=== PATIENT | female | born 1955 | race Caucasian/White ===

== ENCOUNTER 2020-01-05 09:18 | Outpatient (CLI) | payer MEDICARE, MEDICAID, SELFPAY ==
--- NOTE | 2020-01-05 09:33 | MM_ITS ---
WS: [id number] BILATERAL DIGITAL SCREENING MAMMOGRAPHY WITH CAD CLINICAL INFORMATION: SCREENING HISTORY: Screening mammogram. No current complaints. COMPARISON: None. TECHNIQUE: Bilateral CC and MLO views. FINDINGS: The breasts are composed of heterogeneous fibroglandular density tissue, which can limit the detectio n of small underlying mass lesions. No suspicious mass, asymmetry, calcifications, or architectural d istortion. No evidence of malignancy. MM/[place] [id number] IMPRESSION: BI-RADS: 1-Negative FOLLOW UP: 1 Year Follow-up Recommend return to annual screening mammography.
== END 2020-01-05 09:19 | disposition home or self-care (01) ==
LOC: RADSHAW 09:28
PROVIDERS: Family Provider Family Medicine; PCP Family Medicine; Visit Provider Family Medicine
DX: Z12.31 Encounter for screening mammogram for malignant neoplasm of breast (principal)
CPT/HCPCS: 77067

== ENCOUNTER 2020-01-05 11:19 | Outpatient (CLI) | payer MEDICARE, MEDICAID, SELFPAY ==
--- NOTE | 2020-01-05 11:26 | US_ITS ---
WS: [id number] RENAL ULTRASOUND REASON FOR EXAM: CKD STAGE 3 TECHNIQUE: Grayscale and Doppler ultrasound examination of the kidneys. FINDINGS: Right kidney: Right kidney measures 9.6 cm x 2.9 cm x 3.4 cm. Cortex measured 0.79 cm Left kidney: Left kidney measures 9.1 cm x 5.1 cm x 5.1 cm. No stones or hydronephrosis. Contracted bladder is noted the patient had voided prior to the exam. US/US renal BI* [id number] IMPRESSION: Decreased cortex size right kidney Left kidney normal.
== END 2020-01-05 11:20 | disposition home or self-care (01) ==
LOC: RAD 11:27 → US 11:27
PROVIDERS: Family Provider Family Medicine; PCP Family Medicine; Visit Provider Internal Medicine Nephrology
DX: N18.3 Chronic kidney disease, stage 3 (moderate) (principal); N32.89 Other specified disorders of bladder
CPT/HCPCS: 76770

== ENCOUNTER → 2020-01-11 14:56 | Outpatient (BNVA) | payer MEDICARE, MEDICAID, SELFPAY | PROVIDERS: Family Provider Family Medicine; PCP Family Medicine; Visit Provider Nurse Practitioner Family | DX: R30.0 Dysuria (principal); J01.40 Acute pansinusitis, unspecified; B37.3 Candidiasis of vulva and vagina; J01.41 Acute recurrent pansinusitis; B37.2 Candidiasis of skin and nail | CPT/HCPCS: 81003 ==

== ENCOUNTER → 2020-03-23 12:11 | Outpatient (BNVA) | payer MEDICARE, MEDICAID, SELFPAY | PROVIDERS: Family Provider Family Medicine; PCP Family Medicine; Visit Provider Internal Medicine Nephrology | DX: N18.3 Chronic kidney disease, stage 3 (moderate) (principal) | CPT/HCPCS: 82044 ==

== ENCOUNTER → 2020-07-16 16:43 | Outpatient (BNVA) | payer MEDICARE, MEDICAID, SELFPAY | PROVIDERS: Family Provider Family Medicine; PCP Family Medicine; Visit Provider Family Medicine | DX: N18.3 Chronic kidney disease, stage 3 (moderate) (principal); E03.9 Hypothyroidism, unspecified; E53.9 Vitamin B deficiency, unspecified | CPT/HCPCS: 80053; 80061; 82607; 84100; 84443; 85025 ==

== ENCOUNTER → 2020-09-25 09:01 | Outpatient (BNVA) | payer MEDICARE, MEDICAID, SELFPAY | PROVIDERS: Family Provider Family Medicine; PCP Family Medicine; Visit Provider Family Medicine | DX: S22.20XA Unspecified fracture of sternum, initial encounter for closed fracture (principal) | CPT/HCPCS: 71120 ==

== ENCOUNTER → 2020-11-22 15:12 | Outpatient (BNVA) | payer MEDICARE, MEDICAID, SELFPAY | PROVIDERS: Family Provider Family Medicine; PCP Family Medicine; Visit Provider Family Medicine | DX: R30.0 Dysuria (principal) | CPT/HCPCS: 81003; 87086 ==

== ENCOUNTER → 2021-04-02 11:28 | Outpatient (BNVA) | payer MEDICARE, MEDICAID, SELFPAY | PROVIDERS: Family Provider Family Medicine; PCP Family Medicine; Visit Provider Family Medicine | DX: E03.9 Hypothyroidism, unspecified (principal); E53.8 Deficiency of other specified B group vitamins; N18.9 Chronic kidney disease, unspecified; R30.0 Dysuria | CPT/HCPCS: 80053; 80061; 80069; 81000; 82043; 82310; 82607; 83970; 84443; 85025 ==

== ENCOUNTER → 2021-05-22 15:47 | Outpatient (BNVA) | payer MEDICARE, MEDICAID, SELFPAY | PROVIDERS: Family Provider Family Medicine; PCP Family Medicine; Visit Provider Family Medicine | DX: R30.0 Dysuria (principal) | CPT/HCPCS: 81003 ==

== ENCOUNTER → 2021-07-17 11:00 | Outpatient (BNVA) | payer MEDICARE, MEDICAID, SELFPAY | PROVIDERS: Family Provider Family Medicine; PCP Family Medicine; Visit Provider Family Medicine | DX: R30.0 Dysuria (principal) | CPT/HCPCS: 81003 ==

== ENCOUNTER → 2021-12-16 15:06 | Outpatient (BNVA) | payer MEDICARE, MEDICAID, SELFPAY | PROVIDERS: Family Provider Family Medicine; PCP Family Medicine; Visit Provider Nurse Practitioner Family | DX: R30.0 Dysuria (principal); J06.9 Acute upper respiratory infection, unspecified | CPT/HCPCS: 81000 ==

== ENCOUNTER → 2021-12-23 11:53 | Outpatient (BNVA) | payer MEDICARE, MEDICAID, SELFPAY | PROVIDERS: Family Provider Family Medicine; PCP Family Medicine; Visit Provider Family Medicine | DX: K21.9 Gastro-esophageal reflux disease without esophagitis (principal); E53.8 Deficiency of other specified B group vitamins; E03.9 Hypothyroidism, unspecified; I95.9 Hypotension, unspecified | CPT/HCPCS: 80053; 80061; 82607; 83036; 84443; 85025 ==

== ENCOUNTER 2022-01-11 00:47 | Inpatient (IN) | payer MEDICARE, MEDICAID, SELFPAY ==
[2022-01-11] VITALS (13 sets, daily range): BP systolic 92–139; BP diastolic 55–102; PULSE 71–92; RESP 16–20; TEMP 36.7–37; O2SAT 90–99; BMI 27.3; BMI 29.5
--- NOTE | 2022-01-11 01:18 | XRR_ITS ---
PROCEDURE INFORMATION: Exam: XR Chest Exam date and time: 01/11/2022 1:18 AM Age: 66 years old Clinical indication: Shortness of breath; Patient HX: C/O worsening SOB. States history of sternal fracture a few years ago. Best positioning due to scoliosis. TECHNIQUE: Imaging protocol: XR of the chest. Views: 1 view. COMPARISON: CR XR sternum min 2V [id number] 09/25/2020 9:16 AM FINDINGS: Lungs: Marked bibasilar airspace opacities (atelectasis and/or consolidation). Moderate pulmonary edema. Pleural spaces: No visible pneumothorax. Small bilateral pleural effusions. Heart/Mediastinum: Heart size within normal limits. Bones/joints: No emergent findings identified. XR/XR chest 1V portable [id number] IMPRESSION: 1. Marked bibasilar airspace opacities (atelectasis and/or consolidation). 2. Moderate pulmonary edema. 3. Small bilateral pleural effusions.
--- NOTE | 2022-01-11 01:20 | ECG_ITS ---
[facility] Test Date: 2022-01-11 Pat Name: Nereida Samuels Department: Room: Gender: Female Coin Box Inspector: : 1955 Requested By: Martin Byrd Order Number: [id number] Shawn MD: Tyron Cortes M.D. Measurements Intervals [place] Rate: 90 P: 57 NC: 199 QRS: 60 QRSD: 82 T: 54 QT: 372 QTc: 456 Interpretive Statements SINUS RHYTHM NONSPECIFIC ST & T-WAVE ABNORMALITY No previous ECG available for comparison Electronically Signed On 01-12-2022 15:46:35 CDT by Tyron Cortes M.D. [id number]
--- NOTE | 2022-01-11 01:34 | W.ED.SOB ---
HPI - SOB/Dyspnea General: Chief Complaint: Shortness of Breath/Dyspnea Stated Complaint: COUGH/LOW 02/WEAKNESS Time Seen by Provider: 01/11/22 00:56 Source: patient and family History of Present Illness: HPI Narrative: 66-year-old female with a history of asthma. She presents with 1 week of progressive shortness of breath, cough, and cough related chest discomfort with generalized malaise. She does not use oxygen at home. Family called 911 after she slumped over in the chair at home. She was arousable, but had significant lethargy, and was having trouble breathing. She presents on oxygen, stating that this is the first time she has been able to breathe well in a week. She denies fever. She denies diarrhea. She relates her symptoms to environmental allergies that have made her not be able to breathe. MD elicited complaint: shortness of breath and cough Pertinent past history: asthma Onset (ago): day(s) Timing: progressively worsening Severity: moderate Exacerbating factors: exertion, movement and coughing Relieving factors: oxygen Known history of: asthma Associated symptoms: Reports chest congestion, chest pain (Related to cough), cough, orthopnea and syncope (Possibly at home); Deny abdominal pain, dizziness, fever(s), nausea, rash or vomiting Review of Systems Const: Denies: fever(s) Eyes: Denies: change in vision ENMT: Denies: throat pain Card: Reports: chest pain (Related to cough), syncope (Possibly at home) and orthopnea Resp: Reports: chest congestion GI: Denies: abdominal pain, nausea or vomiting Neuro: Denies: dizziness PFSH ED PFSH: Medical History Anxiety and depression Environmental and seasonal allergies Hypothyroidism Migraines Vitamin B12 deficiency Surgical History History of back surgery History of surgery on wrist Hx of appendectomy Hx of hysterectomy Hx of knee surgery Hx of shoulder surgery Family History Father Diabetes Hypertension Sister Diabetes Hypertension Other Lung disease Denies family history of Clotting disorder Suicide Stroke Social History Smoking and tobacco status: never smoked Second hand smoke exposure: No Smoking risk assessment/counseling performed?: No Alcohol intake: never Desire information about alcohol rehabilitation?: No Counseling given: No Desire information about substance/drug rehabilitation?: No Counseling given: No Adopted: No Caregiver/support person: No Lives independently: Yes Household members: none Housing: House Marital status: / Number of children: 2 Number of grandchildren: 3 Highest education level completed: Master's Degree service: No Current occupational status: retired Pets and animals: Yes History of recent travel: No Current gender identity: Female Physical Exam Const: GENERAL APPEARANCE: cooperative and frail appearing HENMT: COMMON NORMALS: normocephalic, atraumatic and Normal external nose present HEAD & SCALP: normocephalic and atraumatic NOSE: Normal external nose present Eye: COMMON NORMALS: Equal, round and reactive pupils present and EOMs intact bilaterally PUPIL: Yes Equal, round and reactive pupils present Chest: COMMONS NORMALS: normal inspection of the chest Resp: COMMON NORMALS: normal respiratory effort, No use of accessory muscles and clear to auscultation bilaterally AUSCULTATION: clear to auscultation bilaterally Cardio: COMMON NORMALS: regular rate and regular rhythm RATE: regular rate RHYTHM: regular rhythm GI: COMMON NORMALS: Normal to inspection, nondistended, normoactive bowel sounds present and Soft to palpation PALPATION: Yes Soft to palpation Extremity: COMMON NORMALS: no pedal edema Neuro: ALYSHA COMA SCALE: document GCS findings [place] coma scale eye opening: Spontaneous [place] coma scale verbal response: Orientated [place] coma scale motor response: Obey commands [place] coma scale total score: 15 Course Consultations: Consultation #1: [email or web address] Time: 03:15 Vital Signs: Vital signs: Vital Signs Temperature 98.4 F 01/11/22 00:52 Pulse Rate 76 01/11/22 02:00 Respiratory Rate 20 H 01/11/22 02:00 Blood Pressure 136/102 01/11/22 00:52 Pulse Oximetry 93 01/11/22 02:00 MDM - SOB/Dyspnea Medical Decision Making 66-year-old lady evidently with a history of asthma. She presents short of breath. She is oxygen dependent at this point. On 2 L her PO2 is 70 on blood gas. She is not acidotic. Chest x-ray shows pulmonary edema with bilateral effusions. Her white count is 6. Her hemoglobin is down to 9.1 from 11 in December. Her creatinine is 1.2. She is given Solu-Medrol, and DuoNeb treatment initially, but with reviewing her chest x-ray is also given Lasix. She is mildly hypertensive. We will add some nitroglycerin paste. As she is oxygen dependent at this point, she will be admitted. COVID-19 PCR is pending. Her second troponin is pending as well. Lab Data : 01/11/22 01:40 01/11/22 01:40 Labs/Radiology: Radiology Impressions Chest X-Ray 01/11/22 01:18 IMPRESSION: 1. Marked bibasilar airspace opacities (atelectasis and/or consolidation). 2. Moderate pulmonary edema. 3. Small bilateral pleural effusions. Laboratory Results WBC 6.0 10^3/uL (4.0-10.0) 01/11/22 01:40 RBC 3.63 10^6/uL (4.1-5.3) L 01/11/22 01:40 Hgb 9.1 g/dL (11.5-15.3) L 01/11/22 01:40 Hct 30.5 % (37.0-47.0) L 01/11/22 01:40 MCV 84.0 fl (81-99) 01/11/22 01:40 MCH 25.1 pg (28.0-34.0) L 01/11/22 01:40 MCHC 29.8 g/dL (30.0-36.0) L 01/11/22 01:40 RDW 16.2 % (12.1-15.1) H 01/11/22 01:40 Plt Count 398 10^3/cmm (130-400) 01/11/22 01:40 MPV 9.8 fL (7.4-10.4) 01/11/22 01:40 Neut % (Auto) 57.9 % 01/11/22 01:40 Lymph % (Auto) 25.3 % 01/11/22 01:40 [place] % (Auto) 10.2 % 01/11/22 01:40 Eos % (Auto) 5.4 % 01/11/22 01:40 Baso % (Auto) 1.0 % 01/11/22 01:40 Neut # (Auto) 3.46 10^3/uL (1.8-7.7) 01/11/22 01:40 Lymph # (Auto) 1.5 10^3/uL (0.8-4.8) 01/11/22 01:40 [place] # (Auto) 0.6 10^3/uL (0.2-0.9) 01/11/22 01:40 Eos # (Auto) 0.3 10^3/uL (0.0-0.8) 01/11/22 01:40 Baso # (Auto) 0.1 10^3/uL (0.0-0.1) 01/11/22 01:40 Nucleated RBC % (auto) 0 % 01/11/22 01:40 Nucleated RBCs # 0.0 /100WBC 01/11/22 01:40 D-Dimer 0.86 ug/mIFEU (0-0.59) H 01/11/22 01:40 Specimen Type Arterial 01/11/22 01:47 Sample Site Radial, left 01/11/22 01:47 ABG pH 7.44 (7.35-7.45) 01/11/22 01:47 ABG pCO2 34.5 mmHg (35-45) L 01/11/22 01:47 ABG pO2 70.5 mmHg (80.0-100.0) L 01/11/22 01:47 ABG HCO3 23.2 mmol/L (22-26) 01/11/22 01:47 ABG Base Excess -0.8 mmol/L (-2.0-2.0) 01/11/22 01:47 Manjinder Test Pos 01/11/22 01:47 Hematocrit 28.1 % (37-47) L 01/11/22 01:47 Hgb O2 Saturation 91.5 % (95-100) L 01/11/22 01:47 Carboxyhemoglobin 0.9 %THgb (0.4-20.1) 01/11/22 01:47 Methemoglobin 0.9 % (0.4-1.5) 01/11/22 01:47 Total Hemoglobin 9.2 g/dL (12-16) L 01/11/22 01:47 O2 Delivery Device Nc 01/11/22 01:47 O2 Liters/Min 2.0 % 01/11/22 01:47 Hardwood Floor Finisher ID Buttr 01/11/22 01:47 Sodium 142 mmol/L (136-145) 01/11/22 01:40 Potassium 3.9 mmol/L (3.5-5.1) 01/11/22 01:40 Chloride 107 mmol/L (98-107) 01/11/22 01:40 Carbon Dioxide 23 mmol/L (22-29) 01/11/22 01:40 Anion Gap 15.9 (5-19) 01/11/22 01:40 BUN 21 mg/dL (8-23) 01/11/22 01:40 Creatinine 1.2 mg/dL (0.5-0.9) H 01/11/22 01:40 GFR Calculation 44.8 mL/min (90-130) L 01/11/22 01:40 Glucose 83 mg/dL (65-115) 01/11/22 01:40 Calculated Osmolality 296 mOsm/kg (285-295) H 01/11/22 01:40 Lactic Acid 0.7 mmol/L (0.5-2.2) 01/11/22 01:40 Calcium 8.3 mg/dL (8.5-10.5) L 01/11/22 01:40 Total Bilirubin 0.2 mg/dL (0.15-1.2) 01/11/22 01:40 AST 29 U/L (0-32) 01/11/22 01:40 ALT 22 U/L (0-33) 01/11/22 01:40 Alkaline Phosphatase 101 IU/L (35-105) 01/11/22 01:40 Troponin T Baseline 11 ng/L (0-10) H 01/11/22 01:45 NT-Pro-B Natriuret Pep 3466 pg/mL (0-125) H 01/11/22 01:40 Total Protein 6.4 g/dL (6.6-8.7) L 01/11/22 01:40 Albumin 4.2 g/dL (3.5-5.2) 01/11/22 01:40 Globulin 2.2 g/dL (1.3-4.6) 01/11/22 01:40 Discharge Plan Discharge Patient Disposition: Admitted As Inpatient Clinical Impression: Pulmonary edema Respiratory failure with hypoxia Qualifiers: Chronicity: acute Qualified Code(s): J96.01 - Acute respiratory failure with hypoxia Condition: Fair Coding Level of Care Code ED [place] for g Fwd Exam Comprehensive
[2022-01-11 01:54] LABS: Basophils # 0.1 10^3/uL (0.0-0.1); Eosinophils # 0.3 10^3/uL (0.0-0.8); Eosinophils % 5.4 %; Hematocrit 30.5 % (37.0-47.0); Hemoglobin 9.1 g/dL (11.5-15.3); Lymphocytes # 1.5 10^3/uL (0.8-4.8); Lymphocytes % 25.3 %; Mean Corpuscular HGB Conc 29.8 g/dL (30.0-36.0); Mean Corpuscular Hemoglobin 25.1 pg (28.0-34.0); Mean Platelet Volume 9.8 fL (7.4-10.4); Monocytes # 0.6 10^3/uL (0.2-0.9); Monocytes % 10.2 %; Neutrophils # 3.46 10^3/uL (1.8-7.7); Neutrophils % 57.9 %; Nucleated Red Blood Cells % 0 %; Platelet Count 398 10^3/cmm (130-400); Red Blood Count 3.63 10^6/uL (4.1-5.3); Red Cell Distribution Width 16.2 % (12.1-15.1)
[2022-01-11 01:59] LABS: ABG PCO2 34.5 mmHg (35-45); ABG PH Result 7.44 (7.35-7.45); Arterial Blood Gas Hematocrit 28.1 % (37-47); Base Excess ABG -0.8 mmol/L (-2.0-2.0); Blood Gas Allen Test Pos; Blood Gas Sample Site Radial, left; Blood Gas Sample Type Arterial; Carboxyhemoglobin 0.9 %THgb (0.4-20.1); HCO3 ABG 23.2 mmol/L (22-26); HGB O2 Sat 91.5 % (95-100); Methemoglobin 0.9 % (0.4-1.5); Oxygen Device NC; PO2 ABG 70.5 mmHg (80.0-100.0); Total Hemoglobin 9.2 g/dL (12-16)
[2022-01-11] MEDS: ipratropium-albuterol 3 mL Neb INHALATION ×3 (02:00→20:08)
[2022-01-11 02:10] LABS: D Dimer 0.86 ug/mIFEU (0-0.59)
[2022-01-11 02:15] LABS: Lactic Sepsis W/Reflex 0.7 mmol/L (0.5-2.2)
[2022-01-11 02:17] LABS: Troponin(5th) Baseline 11 ng/L (0-10)
[2022-01-11 02:24] LABS: Alanine Aminotransferase 22 U/L (0-33); Albumin Level 4.2 g/dL (3.5-5.2); Alkaline Phosphatase 101 IU/L (35-105); Anion Gap 15.9 (5-19); Aspartate Amino Transferase 29 U/L (0-32); Blood Urea Nitrogen 21 mg/dL (8-23); Calcium 8.3 mg/dL (8.5-10.5); Carbon Dioxide 23 mmol/L (22-29); Chloride 107 mmol/L (98-107); Globulin 2.2 g/dL (1.3-4.6); Glomerular Filtration Rate 44.8 mL/min (90-130); Glucose 83 mg/dL (65-115); NT Pro B Type Natriuretic Pept 3466 pg/mL (0-125); Osmolality Calculated 296 mOsm/kg (285-295); Potassium 3.9 mmol/L (3.5-5.1); Sodium 142 mmol/L (136-145); Total Bilirubin 0.2 mg/dL (0.15-1.2); Total Protein 6.4 g/dL (6.6-8.7)
[2022-01-11] MEDS: FUROsemide 10 mg/mL SDV 10mL 60 MG IVP (03:35)
[2022-01-11 04:18] LABS: Troponin 5 2HR 11.19 ng/L (0-10)
[2022-01-11 04:27] LABS: Troponin 5 2HR Delta 0.19 ABS# (0-10)
[2022-01-11 04:56] LABS: Adenovirus Not Detected (NOT DETECT); Chlamydia Pneumoniae Not Detected (NOT DETECT); Coronavirus 229E,HKU1,NL63,OC4 Not Detected (NOT DETECT); Human Metapneumovirus Not Detected (NOT DETECT); Human Rhinovirus/Enterovirus Not Detected (NOT DETECT); Influenza A Not Detected (NOT DETECT); Influenza A H1 Not Detected (NOT DETECT); Influenza A H1-2009 Not Detected (NOT DETECT); Influenza A H3 Not Detected (NOT DETECT); Influenza B Not Detected (NOT DETECT); Mycoplasma Pneumoniae Not Detected (NOT DETECT); Parainfluenza Virus Type 1 Not Detected (NOT DETECT); Parainfluenza Virus Type 2 Not Detected (NOT DETECT); Parainfluenza Virus Type 3 Not Detected (NOT DETECT); Parainfluenza Virus Type 4 Not Detected (NOT DETECT); Respiratory Syncytial Virus A Not Detected (NOT DETECT); Respiratory Syncytial Virus B Not Detected (NOT DETECT); SARS-COV-2 Not Detected (NOT DETECT)
--- NOTE | 2022-01-11 05:48 | USCV_ITS ---
Neerida Samuels Age: 66 Gender: F : 1955 Exam Date: 01/11/2022 08:07 Ordering Phys: Lisset Ayers MD Technologist: Celsa Burden Exam Location: [facility] – [place] Indication: New diagnosis of CHF BP: 92 / 55 HR: 85 Rhythm: Sinus Technical Quality: Adequate MEASUREMENTS (Male / Female) Normal Values 2D ECHO LV Diastolic Diameter PLAX 3.8 cm 4.2 - 5.9 / 3.9 - 5.3 cm LV Systolic Diameter PLAX 2.1 cm IVS Diastolic Thickness 0.8 cm 0.6 - 1.0 / 0.6 - 0.9 cm IVS Systolic Thickness 1.1 cm LVPW Diastolic Thickness 1.1 cm 0.6 - 1.0 / 0.6 - 0.9 cm LVPW Systolic Thickness 1.6 cm RV Chamber Size 2.8 cm LVOT Diameter 2.0 cm LV Ejection Fraction 2D Teich 76.4 % LV Ejection Fraction MOD 2C 75.2 % LV Ejection Fraction 2C AL 75.0 % LA Diameter 3.3 cm LA Width 3.7 cm LA Height 3.4 cm RA Width 3.1 cm RA Height 5.3 cm Aorta at Sinotubular Diameter 2.3 cm M-MODE Aortic Annulus Diameter 2.5 cm LA Ao Ratio MM 1.3 MV E Point Septal Separation 0.3 cm DOPPLER AV Peak Velocity 126.0 cm/s LVOT Peak Velocity 125.0 cm/s AV Area Cont Eq vti 3.3 cm squared AV Area Cont Eq pk 3.2 cm squared MV Area PHT 5.0 cm squared Mitral E to A Ratio 1.6 MV E' Velocity 47.0 cm/s Mitral E to MV E' Ratio 7.7 Mitral E to LV E' Lateral Ratio 7.7 Mitral E to LV E' Septal Ratio 7.7 TR Peak Velocity 373.3 cm/s TR Peak Gradient 55.7 mmHg TR Mean Velocity 271.0 cm/s TR Mean Gradient 31.6 mmHg TR Velocity Time Integral 121.9 cm TV Peak E Velocity 47.0 cm/s Right Atrial Pressure 3.0 mmHg Pulmonary Artery Systolic Pressu 58.7 mmHg PV Peak Velocity 94.0 cm/s FINDINGS Left Ventricle Normal left ventricular size. LV systolic function is normal with EF of 55-60%. No regional wall motion abnormalities. Diastolic function is normal Right Ventricle The right ventricle is normal in size and function. Right Atrium The right atrium is normal in size. Left Atrium The left atrium is normal in size. Mitral Valve Structurally normal mitral valve without significant stenosis or prolapse. There is mild mitral regurgitation. Aortic Valve Structurally normal aortic valve without significant sclerosis or stenosis. There is no aortic regurgitation. Tricuspid Valve Structurally normal tricuspid valve without significant stenosis. Mild tricuspid regurgitation. RVSP is 45-50mmHg. This is consistent with moderate pulmonary hypertension Pulmonic Valve Structurally normal pulmonic valve without significant stenosis. There is no pulmonic regurgitation. Pericardium Normal pericardium without effusion. Aorta Normal ascending aorta dimension. CONCLUSIONS LV systolic function is normal with EF of 55-60% Diatolic function is normal Mild mitral regurgitation Mild triuspid regurgitation. Moderate pulmonary hypertension No comparison studies are available Tyron Cortes MD (Electronically Signed) Final Date: 11 January 2022 11:46 S
--- NOTE | 2022-01-11 05:53 | P.HP_ITS ---
Providers/Chief Complaint Admitting Physician: Lisset Ayers MD Primary Care Provider: Soheila Devlin MD Chief Complaint: COUGH/LOW 02/WEAKNESS History of Present Illness Nereida Samuels is a 66 year old female with PMH asthama, anxiety, hypothryroidism, vit b12 deficiency p/w approximately one week of increasing shortness of breath, worse with exertion. Denies any chest pain. Today she was noted by family to be inreasingly weak and slumped over in a chair from fatigue. She has a new 02 requirement of 2lpm today. Denies fever, chills. CXR shows B/L opacities concerning for pneumonia vs pulmonary edema. She does not have known PMH of heart failure. She feels improved after being given lasix, steroids and nebulization in the ER. Troponin baseline today is at 11. COVID PCR is negative. Review of Systems General: Reports: 10 or more systems reviewed and unremarkable except in HPI and below Const: Denies: fever(s), chills or body aches Eyes: Denies: change in vision, blurry vision or photophobia ENMT: Reports: hoarseness; Denies: throat pain, enlarged tonsils, odynophagia or nasal congestion Card: Denies: chest pain, palpitations, irregular heart rhythm, edema, swe lling of feet/ankles, lightheadedness, pre-syncope, dyspnea on exertion or orthopnea Resp: Denies: dyspnea, productive cough, non-productive cough, wheezing, stridor, pain on inspiration, change in phlegm color, hemoptysis or chest congestion GI: Denies: abdominal pain, nausea, vomiting, hematemesis, coffee ground emesis, dysphagia, heartburn, diarrhea, constipation, GI cramping, change in stool character, hematochezia or melena : Denies: flank pain, difficulty voiding, dysuria, urinary frequency, urina ry urgency, urinary hesitancy or hematuria Musc: Denies: neck pain, back pain, extremity pain, joint swelling, joint warmth or deformity Neuro: Denies: headache(s), numbness in extremities, weakness in extremities, sensory changes, difficulty walking, frequent falls, dizziness, vertigo, behavioral changes, Slurred speech present or seizure-like activity Psych: Denies: anxiety, depression, suicidal ideation or homicidal ideation Endo: Denies: polyuria, polydipsia, tired all the time, cold intolerance or hot flashes Luca/Lymph: Denies: easy bruising or easy bleeding Medications/Allergies Home Medications Medication Instructions Recorded Confirmed Last Taken Type Lift chair #1 ea 04/27/20 01/03/22 Unknown Rx syringe with needle, safety 3 mL #20 each 04/27/20 01/03/22 Unknown Rx 25 gauge x 1 (BD SafetyGlide Syringe) cyanocobalamin (vitamin B-12) See Rx Instructions .ROUTE 03/29/21 01/03/22 Unknown Rx 1,000 mcg/mL injection solution .COMPLEX #2 ml azelastine 137 mcg (0.1 %) nasal See Rx Instructions .ROUTE 07/26/21 01/03/22 Unknown Rx spray aerosol .COMPLEX #30 ml albuterol sulfate 2.5 mg (3 mL) INHALATION QID PRN 08/20/21 01/03/22 Unknown Rx #75 ml budesonide-formoterol HFA 160 2 puff INHALATION BID #10.2 g 08/20/21 01/03/22 Un known Rx mcg-4.5 mcg/actuation aerosol inhaler (Symbicort) compressor, for nebulizer #1 ea 08/20/21 01/03/22 Unknown Rx dextromethorphan-guaifenesin ER 60 1 tab PO Q12H #60 tab 08/20/21 01/03/22 Unknown Rx mg-1,200 mg tab,extend release,12hr (Mucinex DM) fluticasone propionate 50 2 spray INTRANASAL DAILY #16 g 08/20/21 01/03/22 Unknown Rx mcg/actuation nasal spray,suspension (Flonase Allergy Relief) nebulizer accessories #1 ea 08/20/21 01/03/22 Unknown Rx ipratropium 0.5 mg-albuterol 3 mg See Rx Instructions .ROUTE 10/09/21 01/03/22 Unknown Rx (2.5 mg base)/3 mL nebulization .COMPLEX #180 ml soln albuterol sulfate 90 mcg/actuation See Rx Instructions .ROUTE 11/04/21 01/03/22 Unknown Rx aerosol inhaler .COMPLEX #18 g sucralfate 1 gram tablet See Rx Instructions .ROUTE 11/29/21 01/03/22 Unknown Rx .COMPLEX #30 tab tizanidine 4 mg tablet See Rx Instructions .ROUTE 11/29/21 01/03/22 Unknown Rx .COMPLEX #90 tab trazodone 150 mg tablet See Rx Instructions .ROUTE 11/29/21 01/03/22 Unknown Rx .COMPLEX #30 tab clonazepam 1 mg disintegrating 1 mg PO BID PRN #60 tab 12/16/21 01/03/22 Unknown Rx tablet duloxetine 60 mg capsule,delayed See Rx Instructions .ROUTE 12/16/21 01/03/22 Unknown Rx release .COMPLEX #60 cap fluconazole 40 mg/mL oral 100 mg (2.5 mL) PO DAILY #35 ml 12/17/21 01/03/22 Unknown Rx suspension (Diflucan) tramadol 50 mg tablet 50 mg PO TID PRN 30 Days #90 tab 12/17/21 01/03/22 Unknown Rx topiramate 50 mg tablet See Rx Instructions .ROUTE 12/19/21 01/03/22 Unknown Rx .COMPLEX #60 tab levothyroxine 100 mcg tablet See Rx Instructions .ROUTE 12/20/21 01/03/22 Unknown Rx .COMPLEX #30 tab nebivolol 5 mg tablet (Bystolic) 5 mg PO .qhs #30 tab 12/23/21 01/03/22 Unknown Rx promethazine 25 mg tablet 25 mg PO Q6H PRN #30 tab 12/23/21 01/03/22 Unknown Rx Allergies Allergy/AdvReac Type Severity Reaction Status Date / Time Penicillins Allergy ALGY-Swell Verified 12/23/21 10:23 Lip/Tongue/Throat red dye Allergy ALGY-Rash Verified 12/23/21 10:23 Sulfa (Sulfonamide Allergy upset Verified 12/23/21 10:23 Antibiotics) stomach Tetracyclines Allergy ADR-Dizzine Verified 12/23/21 10:23 ss PFSH Acute PFSH: Medical History (Updated 01/11/22 @ 06:05 by Lisset Ayers MD) Anxiety and depression Environmental and seasonal allergies Fibromyalgia Hypothyroidism Migraines Scoliosis Vitamin B12 deficiency Surgical History History of back surgery History of surgery on wrist Hx of appendectomy Hx of hysterectomy Hx of knee surgery Hx of shoulder surgery Family History Father Diabetes Hypertension Sister Diabetes Hypertension Other Lung disease Denies family history of Clotting disorder Suicide Stroke Social History Smoking and tobacco status: never smoked Second hand smoke exposure: No Smoking risk assessment/counseling performed?: No Alcohol intake: never Desire information about alcohol rehabilitation?: No Counseling given: No Desire information about substance/drug rehabilitation?: No Counseling given: No Adopted: No Caregiver/support person: No Lives independently: Yes Household members: none Housing: House Marital status: / Number of children: 2 Number of grandchildren: 3 Highest education level completed: Master's Degree service: No Current occupational status: retired Pets and animals: Yes History of recent travel: No Current gender identity: Female Vitals/I&O/Wt Last Vital Signs Temp 98.4 F 01/11/22 00:52 Pulse 76 01/11/22 02:00 Resp 20 H 01/11/22 02:00 BP 136/102 01/11/22 00:52 Pulse Ox 93 01/11/22 02:00 Weight last 48 hrs Weight 63.503 kg Physical Exam Narrative: GEN: Awake, alert and oriented, no acute distress CVS: S1S2 N RS: CTA B/L except crackles over RUL , few scattered wheezes Abd: Soft, nt/nd , bs+ CALL OUT CLERK: no focal neuro deficits Data : 01/11/22 01:40 01/11/22 01:40 Other Labs: Radiology Impressions Chest X-Ray 01/11/22 01:18 IMPRESSION: 1. Marked bibasilar airspace opacities (atelectasis and/or consolidation). 2. Moderate pulmonary edema. 3. Small bilateral pleural effusions. Laboratory Results WBC 6.0 10^3/uL (4.0-10.0) 01/11/22 01:40 RBC 3.63 10^6/uL (4.1-5.3) L 01/11/22 01:40 Hgb 9.1 g/dL (11.5-15.3) L 01/11/22 01:40 Hct 30.5 % (37.0-47.0) L 01/11/22 01:40 MCV 84.0 fl (81-99) 01/11/22 01:40 MCH 25.1 pg (28.0-34.0) L 01/11/22 01:40 MCHC 29.8 g/dL (30.0-36.0) L 01/11/22 01:40 RDW 16.2 % (12.1-15.1) H 01/11/22 01:40 Plt Count 398 10^3/cmm (130-400) 01/11/22 01:40 MPV 9.8 fL (7.4-10.4) 01/11/22 01:40 Neut % (Auto) 57.9 % 01/11/22 01:40 Lymph % (Auto) 25.3 % 01/11/22 01:40 [place] % (Auto) 10.2 % 01/11/22 01:40 Eos % (Auto) 5.4 % 01/11/22 01:40 Baso % (Auto) 1.0 % 01/11/22 01:40 Neut # (Auto) 3.46 10^3/uL (1.8-7.7) 01/11/22 01:40 Lymph # (Auto) 1.5 10^3/uL (0.8-4.8) 01/11/22 01:40 [place] # (Auto) 0.6 10^3/uL (0.2-0.9) 01/11/22 01:40 Eos # (Auto) 0.3 10^3/uL (0.0-0.8) 01/11/22 01:40 Baso # (Auto) 0.1 10^3/uL (0.0-0.1) 01/11/22 01:40 Nucleated RBC % (auto) 0 % 01/11/22 01:40 Nucleated RBCs # 0.0 /100WBC 01/11/22 01:40 D-Dimer 0.86 ug/mIFEU (0-0.59) H 01/11/22 01:40 Specimen Type Arterial 01/11/22 01:47 Sample Site Radial, left 01/11/22 01:47 ABG pH 7.44 (7.35-7.45) 01/11/22 01:47 ABG pCO2 34.5 mmHg (35-45) L 01/11/22 01:47 ABG pO2 70.5 mmHg (80.0-100.0) L 01/11/22 01:47 ABG HCO3 23.2 mmol/L (22-26) 01/11/22 01:47 ABG Base Excess -0.8 mmol/L (-2.0-2.0) 01/11/22 01:47 Manjinder Test Pos 01/11/22 01:47 Hematocrit 28.1 % (37-47) L 01/11/22 01:47 Hgb O2 Saturation 91.5 % (95-100) L 01/11/22 01:47 Carboxyhemoglobin 0.9 %THgb (0.4-20.1) 01/11/22 01:47 Methemoglobin 0.9 % (0.4-1.5) 01/11/22 01:47 Total Hemoglobin 9.2 g/dL (12-16) L 01/11/22 01:47 O2 Delivery Device Nc 01/11/22 01:47 O2 Liters/Min 2.0 % 01/11/22 01:47 Vacuum Furnace Operator ID Buttr 01/11/22 01:47 Sodium 142 mmol/L (136-145) 01/11/22 01:40 Potassium 3.9 mmol/L (3.5-5.1) 01/11/22 01:40 Chloride 107 mmol/L (98-107) 01/11/22 01:40 Carbon Dioxide 23 mmol/L (22-29) 01/11/22 01:40 Anion Gap 15.9 (5-19) 01/11/22 01:40 BUN 21 mg/dL (8-23) 01/11/22 01:40 Creatinine 1.2 mg/dL (0.5-0.9) H 01/11/22 01:40 GFR Calculation 44.8 mL/min (90-130) L 01/11/22 01:40 Glucose 83 mg/dL (65-115) 01/11/22 01:40 Calculated Osmolality 296 mOsm/kg (285-295) H 01/11/22 01:40 Lactic Acid 0.7 mmol/L (0.5-2.2) 01/11/22 01:40 Calcium 8.3 mg/dL (8.5-10.5) L 01/11/22 01:40 Total Bilirubin 0.2 mg/dL (0.15-1.2) 01/11/22 01:40 AST 29 U/L (0-32) 01/11/22 01:40 ALT 22 U/L (0-33) 01/11/22 01:40 Alkaline Phosphatase 101 IU/L (35-105) 01/11/22 01:40 Troponin T Baseline 11 ng/L (0-10) H 01/11/22 01:45 Troponin T 120 Minute 11.19 ng/L (0-10) H 01/11/22 03:48 Delta Troponin T 0.19 ABS# (0-10) 01/11/22 03:48 NT-Pro-B Natriuret Pep 3466 pg/mL (0-125) H 01/11/22 01:40 Total Protein 6.4 g/dL (6.6-8.7) L 01/11/22 01:40 Albumin 4.2 g/dL (3.5-5.2) 01/11/22 01:40 Globulin 2.2 g/dL (1.3-4.6) 01/11/22 01:40 Coronavirus 229E (PCR) Not detected (NOT DETECT) 01/11/22 01:40 SARS-CoV-2 (PCR) Not detected (NOT DETECT) 01/11/22 01:40 Micro: Microbiology 01/11/22 01:45 Blood Culture - Preliminary Blood SPECIMEN COLLECTED 01/11/22 01:40 Blood Culture - Preliminary Blood SPECIMEN COLLECTED ABG Interpretation 1: 01/11/22 01:47 ABG pH 7.44 ABG pCO2 34.5 L ABG pO2 70.5 L ABG HCO3 23.2 ABG Base Excess -0.8 A&P Assessment and plan (1) Pulmonary edema: CXR with B/L infiltrates concerning for pulmonary edema No known past h/o heart failure will check echo today She has received 60mg IVP lasix in ER, monitor urine output and kidney function , start 20mg IVP lasix daily Check procalcitonin, if negative can likely stop abx H/o Multiple asthma flares over the past year, continue methylpred 40mg IVP q12h and scheduled duoneb and budesonide inhalation. 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
[2022-01-11 06:21] LABS: Procalcitonin 0.09 ng/mL (0-0.5)
[2022-01-11] MEDS: levothyroxine 100 mcg Tablet PO (06:57)
--- NOTE | 2022-01-11 07:20 | ECG_ITS ---
[facility] Test Date: 2022-01-11 Pat Name: Nereida Samuels Department: Room: 259 Gender: Female [employer]: : 1955 Requested By: Martin Byrd Order Number: [id number] Shawn MD: Tyron Cortes M.D. Measurements Intervals [place] Rate: 78 P: 60 [place]: 201 QRS: 61 QRSD: 79 T: 30 QT: 415 QTc: 474 Interpretive Statements SINUS RHYTHM NONSPECIFIC T-WAVE ABNORMALITY Compared to ECG 01/11/2022 02:59:36 No significant changes Electronically Signed On 01-12-2022 15:55:08 CDT by Tyron Cortes M.D. [email or web address]
[2022-01-11 08:17] LABS: Troponin 5 6HR 11.02 ng/L (0-10)
[2022-01-11 08:26] LABS: Troponin 5 6HR Delta 0.02 ng/L (0-12)
[2022-01-11] MEDS: budesonide 0.5 mg/2 mL Neb INHALATION ×2 (09:49→20:08)
[2022-01-11] MEDS: enoxaparin 40 mg/0.4 mL Syringe SUBCUT (10:41)
[2022-01-11] MEDS: duloxetine 60 mg Capsule PO ×2 (10:42→20:44)
[2022-01-11] MEDS: TRAMadol 50 mg Tablet PO (10:42)
[2022-01-11] MEDS: FUROsemide 10 mg/mL SDV 2mL 20 MG IVP (10:42)
[2022-01-11] MEDS: CLONazepam 1 mg Tablet PO (10:43)
[2022-01-11] MEDS: pantoprazole DR 40 mg Tablet PO (10:43)
[2022-01-11] MEDS: levoFLOXacin 750 mg Tablet PO (10:43)
--- NOTE | 2022-01-11 11:29 | CTR_ITS ---
PROCEDURE INFORMATION: Exam: CT Chest Without Contrast; Diagnostic Exam date and time: 01/11/2022 11:29 AM Age: 66 years old Clinical indication: Shortness of breath; Additional info: Chf vs pna TECHNIQUE: Imaging protocol: Diagnostic computed tomography of the chest without contrast. Radiation optimization: All CT scans at this facility use at least one of these dose optimization techniques: automated exposure control; mA and/or kV adjustment per patient size (includes targeted exams where dose is matched to clinical indication); or iterative reconstruction. COMPARISON: CR (CHEST, ) 01/11/2022 1:22 AM RADIATION DOSE METRICS: Total DLP (mGy-cm): 316.15 FINDINGS: Lungs: Mild bibasilar compressive atelectasis and/or pneumonia. Pleural spaces: Mbiz-cu-emibnrbj bilateral pleural fluid collections. Heart: Moderate calcified coronary artery disease. Aorta: Unremarkable. No aortic aneurysm. Lymph nodes: Unremarkable. No enlarged lymph nodes. Gallbladder and bile ducts: Surgical clips in the gallbladder fossa consistent with cholecystectomy. Stomach: Previous gastroplasty. Bones/joints: Healed depressed sternal body fracture and manubrial fractures. Dextroscoliosis. Soft tissues: Unremarkable. CT/CT chest con [id number] IMPRESSION: 1. Cbjj-yh-zpnrnhji bilateral pleural fluid collections. 2. Mild bibasilar compressive atelectasis and/or pneumonia. 3. Moderate calcified coronary artery disease.
[2022-01-11] MEDS: trazodone 150 mg Tablet PO (20:44)
[2022-01-11 23:05] LABS: Add Urine Microscopic? NO; Charge for UA Resulting for Rev
[2022-01-11 23:09] LABS: Bilirubin Urine Neg (Negative); Blood Urine Neg (Negative); Glucose Urine UA Norm (Normal); Ketones Urine Negative (Negative); Leukocyte Esterase Urine Negative (Negative); Nitrate Urine Negative (Negative); Protein Urine Neg (Negative); Specific Gravity, Urine 1.015 (1.005-1.030); Urine Appearance Clear (CLEAR); Urine Color Yellow (Yellow); Urobilinogen Urine Norm (Negative); pH Urine 5 (5-7)
[2022-01-11 23:22] LABS: Potassium, Radom Urine 49 mmol/L; Urine Random Sodium 24 mmol/L
[2022-01-11 23:40] LABS: Urine Random Chloride 10 mmol/L
[2022-01-12] VITALS (12 sets, daily range): BP systolic 113–132; BP diastolic 68–72; PULSE 83–98; RESP 16–18; TEMP 36.6–36.9; O2SAT 85–98
[2022-01-12] MEDS: CLONazepam 1 mg Tablet PO (00:42)
[2022-01-12] MEDS: ipratropium-albuterol 3 mL Neb INHALATION ×3 (03:21→15:22)
[2022-01-12 05:03] LABS: Hematocrit 29.8 % (37.0-47.0); Hemoglobin 8.6 g/dL (11.5-15.3); Lymphocytes # 0.3 10^3/uL (0.8-4.8); Lymphocytes % 6.5 %; Mean Corpuscular HGB Conc 28.9 g/dL (30.0-36.0); Mean Corpuscular Hemoglobin 25.2 pg (28.0-34.0); Mean Corpuscular Volume 87.4 fl (81-99); Mean Platelet Volume 10.1 fL (7.4-10.4); Monocytes # 0.3 10^3/uL (0.2-0.9); Monocytes % 5.1 %; Neutrophils # 4.62 10^3/uL (1.8-7.7); Nucleated Red Blood Cells % 0 %; Platelet Count 360 10^3/cmm (130-400); Red Blood Count 3.41 10^6/uL (4.1-5.3); Red Cell Distribution Width 16.2 % (12.1-15.1); White Blood Count 5.3 10^3/uL (4.0-10.0)
[2022-01-12 05:20] LABS: Alanine Aminotransferase 16 U/L (0-33); Albumin Level 3.7 g/dL (3.5-5.2); Alkaline Phosphatase 89 IU/L (35-105); Anion Gap 16.9 (5-19); Aspartate Amino Transferase 24 U/L (0-32); Blood Urea Nitrogen 27 mg/dL (8-23); Calcium 8.5 mg/dL (8.5-10.5); Carbon Dioxide 20 mmol/L (22-29); Chloride 100 mmol/L (98-107); Globulin 2.5 g/dL (1.3-4.6); Glomerular Filtration Rate 62.5 mL/min (90-130); Glucose 179 mg/dL (65-115); Osmolality Calculated 286 mOsm/kg (285-295); Potassium 3.9 mmol/L (3.5-5.1); Sodium 133 mmol/L (136-145); Total Bilirubin 0.2 mg/dL (0.15-1.2); Total Protein 6.2 g/dL (6.6-8.7)
[2022-01-12] MEDS: levothyroxine 100 mcg Tablet PO (06:16)
[2022-01-12] MEDS: budesonide 0.5 mg/2 mL Neb INHALATION (08:09)
--- NOTE | 2022-01-12 12:13 | PM.DCS ---
Discharge Providers Date of Admission: 01/11/22 03:19 Date of Discharge: January 12, 2022 Attending Provider at Admission: Lisset Ayers MD Attending Provider at Discharge: Chan Longoria MD Primary Care Provider: Soheila Devlin MD Diagnoses at Discharge Discharge Diagnosis (1) Pulmonary edema: Status: Acute (2) Dyspnea: Status: Acute (3) Respiratory failure with hypoxia: Status: Acute Qualifiers: Chronicity: acute Qualified Code(s): J96.01 - Acute respiratory failure with hypoxia (4) Moderate pulmonary hypertension: Status: Acute (5) COPD (chronic obstructive pulmonary disease): Status: Acute Reason for Visit Reason for Visit: COUGH/LOW 02/WEAKNESS Brief History: History as per HPI: Nereida Samuels is a 66 year old female with PMH asthama, anxiety, hypothryroidism, vit b12 deficiency p/w approximately one week of increasing shortness of breath, worse with exertion. Denies any chest pain. Today she was noted by family to be inreasingly weak and slumped over in a chair from fatigue. She has a new 02 requirement of 2lpm today. Denies fever, chills. CXR shows B/L opacities concerning for pneumonia vs pulmonary edema. She does not have known PMH of heart failure. She feels improved after being given lasix, steroids and nebulization in the ER. Troponin baseline today is at 11. COVID PCR is negative. Hospital Course Hospital Course She was admitted to the hospital for further evaluation and management of hypoxia. It is believed hypoxia secondary to COPD exacerbation along with mild congestive heart failure. She was started on diuretic therapy and inhalation treatment. On admission she was in mild SARAH which resolved with diuresis. Echocardiogram was done which showed moderate pulmonary hypertension. CT chest was done which ruled out any consolidation or pneumonia. Patient has been feeling better and since she is back to her baseline. She is been discharged in medically stable condition with steroid taper for next 1 week, Lasix 20 mg oral daily with advised to follow-up with a primary care provider within next 1 week for repeat BMP, have pulmonary function test as an outpatient for further evaluation of COPD. Physical Exam Const: GENERAL APPEARANCE: cooperative and frail appearing HENMT: COMMON NORMALS: normocephalic, atraumatic and Normal external nose present HEAD & SCALP: normocephalic and atraumatic NOSE: Normal external nose present Eye: COMMON NORMALS: Equal, round and reactive pupils present and EOMs intact bilaterally PUPIL: Yes Equal, round and reactive pupils present Chest: COMMONS NORMALS: normal inspection of the chest Resp: COMMON NORMALS: normal respiratory effort, No use of accessory muscles and clear to auscultation bilaterally AUSCULTATION: clear to auscultation bilaterally Cardio: COMMON NORMALS: regular rate and regular rhythm RATE: regular rate RHYTHM: regular rhythm GI: COMMON NORMALS: Normal to inspection, nondistended, normoactive bowel sounds present and Soft to palpation PALPATION: Yes Soft to palpation Extremity: COMMON NORMALS: no pedal edema Neuro: JAYMIE COMA SCALE: document GCS findings [place] coma scale eye opening: Spontaneous [place] coma scale verbal response: Orientated [place] coma scale motor response: Obey commands [place] coma scale total score: 15 Discharge Data Studies Completed and Pending Completed Studies During Hospitalization Category Date Time Status CT chest wo con [id number] Routine Cat Scan 01/11/22 11:29 Completed XR chest 1V portable [id number] Urgent Exams 01/11/22 01:18 Completed CV. echo complete* [id number] Routine Ultrasound 01/11/22 05:48 Completed Pending at discharge Category Date Time Status Blood Culture Stat Lab 01/11/22 01:45 Results Sputum Culture and Gram Stain Routine Lab 01/11/22 06:02 Uncollected Radiology Impressions Chest X-Ray 01/11/22 01:18 IMPRESSION: 1. Marked bibasilar airspace opacities (atelectasis and/or consolidation). 2. Moderate pulmonary edema. 3. Small bilateral pleural effusions. Chest CT 01/11/22 11:29 IMPRESSION: 1. [id number] bilateral pleural fluid collections. 2. Mild bibasilar compressive atelectasis and/or pneumonia. 3. Moderate calcified coronary artery disease. Laboratory Results WBC 5.3 10^3/uL (4.0-10.0) 01/12/22 04:50 RBC 3.41 10^6/uL (4.1-5.3) L 01/12/22 04:50 Hgb 8.6 g/dL (11.5-15.3) L 01/12/22 04:50 Hct 29.8 % (37.0-47.0) L 01/12/22 04:50 MCV 87.4 fl (81-99) 01/12/22 04:50 MCH 25.2 pg (28.0-34.0) L 01/12/22 04:50 MCHC 28.9 g/dL (30.0-36.0) L 01/12/22 04:50 RDW 16.2 % (12.1-15.1) H 01/12/22 04:50 Plt Count 360 10^3/cmm (130-400) 01/12/22 04:50 MPV 10.1 fL (7.4-10.4) 01/12/22 04:50 Neut % (Auto) 88.0 % 01/12/22 04:50 Lymph % (Auto) 6.5 % 01/12/22 04:50 [place] % (Auto) 5.1 % 01/12/22 04:50 Eos % (Auto) 0.0 % 01/12/22 04:50 Baso % (Auto) 0.0 % 01/12/22 04:50 Neut # (Auto) 4.62 10^3/uL (1.8-7.7) 01/12/22 04:50 Lymph # (Auto) 0.3 10^3/uL (0.8-4.8) L 01/12/22 04:50 [place] # (Auto) 0.3 10^3/uL (0.2-0.9) 01/12/22 04:50 Eos # (Auto) 0.0 10^3/uL (0.0-0.8) 01/12/22 04:50 Baso # (Auto) 0.0 10^3/uL (0.0-0.1) 01/12/22 04:50 Nucleated RBC % (auto) 0 % 01/12/22 04:50 Nucleated RBCs # 0.0 /100WBC 01/12/22 04:50 D-Dimer 0.86 ug/mIFEU (0-0.59) H 01/11/22 01:40 Specimen Type Arterial 01/11/22 01:47 Sample Site Radial, left 01/11/22 01:47 ABG pH 7.44 (7.35-7.45) 01/11/22 01:47 ABG pCO2 34.5 mmHg (35-45) L 01/11/22 01:47 ABG pO2 70.5 mmHg (80.0-100.0) L 01/11/22 01:47 ABG HCO3 23.2 mmol/L (22-26) 01/11/22 01:47 ABG Base Excess -0.8 mmol/L (-2.0-2.0) 01/11/22 01:47 Manjinder Test Pos 01/11/22 01:47 Hematocrit 28.1 % (37-47) L 01/11/22 01:47 Hgb O2 Saturation 91.5 % (95-100) L 01/11/22 01:47 Carboxyhemoglobin 0.9 %THgb (0.4-20.1) 01/11/22 01:47 Methemoglobin 0.9 % (0.4-1.5) 01/11/22 01:47 Total Hemoglobin 9.2 g/dL (12-16) L 01/11/22 01:47 O2 Delivery Device Nc 01/11/22 01:47 O2 Liters/Min 2.0 % 01/11/22 01:47 Record Keeper ID Buttr 01/11/22 01:47 Sodium 133 mmol/L (136-145) L 01/12/22 04:50 Potassium 3.9 mmol/L (3.5-5.1) 01/12/22 04:50 Chloride 100 mmol/L (98-107) 01/12/22 04:50 Carbon Dioxide 20 mmol/L (22-29) L 01/12/22 04:50 Anion Gap 16.9 (5-19) 01/12/22 04:50 BUN 27 mg/dL (8-23) H 01/12/22 04:50 Creatinine 0.9 mg/dL (0.5-0.9) 01/12/22 04:50 GFR Calculation 62.5 mL/min (90-130) L 01/12/22 04:50 Glucose 179 mg/dL (65-115) H 01/12/22 04:50 Calculated Osmolality 286 mOsm/kg (285-295) 01/12/22 04:50 Lactic Acid 0.7 mmol/L (0.5-2.2) 01/11/22 01:40 Calcium 8.5 mg/dL (8.5-10.5) 01/12/22 04:50 Total Bilirubin 0.2 mg/dL (0.15-1.2) 01/12/22 04:50 AST 24 U/L (0-32) 01/12/22 04:50 ALT 16 U/L (0-33) 01/12/22 04:50 Alkaline Phosphatase 89 IU/L (35-105) 01/12/22 04:50 Troponin T Baseline 11 ng/L (0-10) H 01/11/22 01:45 Troponin T 120 Minute 11.19 ng/L (0-10) H 01/11/22 03:48 Delta Troponin T 0.19 ABS# (0-10) 01/11/22 03:48 Troponin T Hi Sens 6Hr 11.02 ng/L (0-10) H 01/11/22 07:36 Troponin T Hi Sens 6Hr Delta 0.02 ng/L (0-12) 01/11/22 07:36 NT-Pro-B Natriuret Pep 3466 pg/mL (0-125) H 01/11/22 01:40 Total Protein 6.2 g/dL (6.6-8.7) L 01/12/22 04:50 Albumin 3.7 g/dL (3.5-5.2) 01/12/22 04:50 Globulin 2.5 g/dL (1.3-4.6) 01/12/22 04:50 Procalcitonin 0.09 ng/mL (0-0.5) 01/11/22 03:48 Urine Color Yellow (Yellow) 01/11/22 23:00 Urine Appearance Clear (CLEAR) 01/11/22 23:00 Urine pH 5 (5-7) 01/11/22 23:00 Ur Specific [place] 1.015 (1.005-1.030) 01/11/22 23:00 Urine Protein Neg (Negative) 01/11/22 23:00 Urine Glucose (UA) Norm (Normal) 01/11/22 23:00 Urine Ketones Negative (Negative) 01/11/22 23:00 Urine Blood Neg (Negative) 01/11/22 23:00 Urine Nitrate Negative (Negative) 01/11/22 23:00 Urine Bilirubin Neg (Negative) 01/11/22 23:00 Urine Urobilinogen Norm mg/dL (Negative) 01/11/22 23:00 Ur Leukocyte Esterase Negative (Negative) 01/11/22 23:00 Ur Random Sodium 24 mmol/L 01/11/22 23:00 Ur Random Potassium 49 mmol/L 01/11/22 23:00 Ur Random Chloride 10 mmol/L 01/11/22 23:00 Coronavirus 229E (PCR) Not detected (NOT DETECT) 01/11/22 01:40 SARS-CoV-2 (PCR) Not detected (NOT DETECT) 01/11/22 01:40 Vitals Last Vital Signs Temp 98.1 F 01/12/22 12:00 Pulse 98 01/12/22 12:00 Resp 18 01/12/22 12:00 BP 132/72 01/12/22 12:00 Pulse Ox 98 01/12/22 12:00 Discharge Plan Discharge Patient Disposition: Home Condition: Stable Prescriptions: New pantoprazole 40 mg Tablet,Delayed Release (Dr/Ec) 40 mg PO DAILY Qty: 30 0RF levofloxacin 750 mg Tablet 750 mg PO Q24H Qty: 2 0RF Lasix 20 mg tablet 20 mg PO QAM Qty: 30 0RF prednisone 10 mg tablet See Taper mg PO DAILY Qty: 20 0RF Taper: predniSONE 60-10 40 mg Daily for 2 Days and 0 Hour 30 mg Daily for 2 Days and 0 Hour 20 mg Daily for 2 Days and 0 Hour 10 mg Daily for 2 Days and 0 Hour Continued cyanocobalamin (vitamin B-12) 1,000 mcg/mL solution See Rx Instructions .ROUTE .COMPLEX Qty: 2 3RF Dose Instruction: INJECT ONE ML INTRAMUSCULARLY EVERY TWO WEEKS Rx Instructions: INJECT ONE ML INTRAMUSCULARLY EVERY TWO WEEKS fluticasone propionate [Flonase Allergy Relief] 50 mcg/actuation spray,suspension 2 spray intranasal DAILY Qty: 16 5RF Rx Instructions: administer into each nostril (DME) compressor, for nebulizer Device See Rx Instructions .Route Qty: 1 0RF Rx Instructions: As directed albuterol sulfate 2.5 mg /3 mL (0.083 %) solution for nebulization 2.5 mg inhalation QID PRN (Reason: shortness of breath or wheezing) Qty: 75 5RF dextromethorphan-guaifenesin [Mucinex DM] 60-1,200 mg tablet extended release 12 hr 1 tab PO Q12H Qty: 60 2RF budesonide-formoterol [Symbicort] 160-4.5 mcg/actuation HFA aerosol inhaler 2 puff inhalation BID Qty: 10.2 5RF (DME) nebulizer accessories [facility] See Rx Instructions .Route Qty: 1 0RF Rx Instructions: As directed nebivolol [Bystolic] 5 mg tablet 5 mg PO .qhs Qty: 30 3RF promethazine 25 mg tablet 25 mg PO Q6H PRN (Reason: sedation) Qty: 30 1RF (DME) BD SafetyGlide Syringe 3 mL 25 gauge x 1 syringe See Rx Instructions .ROUTE .MEDSUPPLY Qty: 20 3RF Rx Instructions: use with cyanocobalamin injections every 2 weeks (DME) Lift chair See Rx Instructions .Route .MEDSUPPLY Qty: 1 0RF Rx Instructions: Unable to get up from sitting to standing and lives alone. azelastine 137 mcg (0.1 %) aerosol,spray See Rx Instructions .ROUTE .COMPLEX Qty: 30 2RF Dose Instruction: USE 1 SPRAY IN EACH NOSTRIL TWICE DAILY Rx Instructions: USE 1 SPRAY IN EACH NOSTRIL TWICE DAILY ipratropium-albuterol 0.5 mg-3 mg(2.5 mg base)/3 mL solution for nebulization See Rx Instructions .ROUTE .COMPLEX Qty: 180 2RF Dose Instruction: INHALE THE CONTENTS OF ONE VIAL PER NEBULIZER THREE TIMES DAILY Rx Instructions: INHALE THE CONTENTS OF ONE VIAL PER NEBULIZER THREE TIMES DAILY albuterol sulfate 90 mcg/actuation HFA aerosol inhaler See Rx Instructions .ROUTE .COMPLEX Qty: 18 2RF Dose Instruction: INHALE 1 PUFF INTO LUNGS FOUR TIMES DAILY NEEDED FOR SHORTNESS OF BREATH OR WHEEZING Rx Instructions: INHALE 1 PUFF INTO LUNGS FOUR TIMES DAILY NEEDED FOR SHORTNESS OF BREATH OR WHEEZING trazodone 150 mg tablet See Rx Instructions .ROUTE .COMPLEX Qty: 30 1RF Dose Instruction: TAKE ONE TABLET BY MOUTH AT BEDTIME Rx Instructions: TAKE ONE TABLET BY MOUTH AT BEDTIME sucralfate 1 gram tablet See Rx Instructions .ROUTE .COMPLEX Qty: 30 3RF Dose Instruction: TAKE ONE TABLET BY MOUTH TWICE DAILY FOR EIGHT WEEKS Rx Instructions: TAKE ONE TABLET BY MOUTH TWICE DAILY FOR EIGHT WEEKS tizanidine 4 mg tablet See Rx Instructions .ROUTE .COMPLEX Qty: 90 0RF Dose Instruction: TAKE ONE TABLET BY MOUTH EVERY 8 HOURS NEEDED FOR MUSCLE SPASTICITY Rx Instructions: TAKE ONE TABLET BY MOUTH EVERY 8 HOURS NEEDED FOR MUSCLE SPASTICITY clonazepam 1 mg tablet,disintegrating 1 mg PO BID PRN (Reason: anxiety) Qty: 60 1RF duloxetine 60 mg capsule,delayed release(DR/EC) See Rx Instructions .ROUTE .COMPLEX Qty: 60 1RF Dose Instruction: TAKE ONE CAPSULE BY MOUTH TWICE DAILY Rx Instructions: TAKE ONE CAPSULE BY MOUTH TWICE DAILY fluconazole [Diflucan] 40 mg/mL suspension for reconstitution 100 mg PO DAILY Qty: 35 2RF tramadol 50 mg tablet 50 mg PO TID PRN (Reason: pain) 30 Days Qty: 90 0RF topiramate 50 mg tablet See Rx Instructions .ROUTE .COMPLEX Qty: 60 0RF Dose Instruction: TAKE ONE TABLET BY MOUTH TWICE DAILY Rx Instructions: TAKE ONE TABLET BY MOUTH TWICE DAILY levothyroxine 100 mcg tablet See Rx Instructions .ROUTE .COMPLEX Qty: 30 0RF Dose Instruction: TAKE ONE TABLET BY MOUTH DAILY Rx Instructions: TAKE ONE TABLET BY MOUTH DAILY Atrovent HFA 17 mcg/actuation Hfa Aerosol Inhaler 2 puff INHALATION QID PRN (Reason: Shortness Of Breath) 0RF Discharge Orders: Discharge Order (Routine); Ordered 01/12/22 Ordered By: Chan Longoria Other Ambulatory Orders: DME: Oxygen (Order) Location: None Selected Ordered By: Chan Longoria Pulmonary Function Screen with Bronchodilator (Routine) Timeframe: 1 Week Facility: [facility] - Location: Respiratory Therapy Ordered By: Chan Longoria Referrals: Soheila Devlin MD [Primary Care Provider] - 2 weeks (will call patient with appointment ) Discharge Diet: Cardiac Discharge Activity: Resume usual activity Patient Instructions: Opioid Safety Activity Restrictions/Additional Instructions: Follow-up with your primary care provider within next 1 to 2 weeks and repeat BMP. Please do pulmonary function test as an outpatient. Discharge Attestations Time Spent in Discharge Care*: greater than 30 min Specific Discharge Activities: educating patient, educating and/or supporting family/caregiver, discussing with case mgr/social workers/dc planners, documenting/other paperwork and evaluating patient/reviewing data Status at Discharge: Cognitive status at discharge: cognitively intact, Behavioral status at discharge: cooperative, Functional status at discharge: independent ambulation, Overall status at discharge: patient is back to baseline Quality Metrics Clinical Quality Measures [ No reported AMI, CVA or VTE this stay] Coding Level of Care Code Acute Chg FW DC note Diagnoses Pulmonary edema J81.1 Dyspnea R06.00 Respiratory failure with hypoxia J96.01 Chronicity: acute Moderate pulmonary hypertension I27.20 COPD (chronic obstructive pulmonary disease) J44.9
[2022-01-12] MEDS: duloxetine 60 mg Capsule PO (12:31)
[2022-01-12] MEDS: pantoprazole DR 40 mg Tablet PO (12:31)
[2022-01-12] MEDS: enoxaparin 40 mg/0.4 mL Syringe SUBCUT (12:31)
[2022-01-12] MEDS: FUROsemide 10 mg/mL SDV 2mL 20 MG IVP (12:31)
[2022-01-12] MEDS: levoFLOXacin 750 mg Tablet PO (12:33)
== END 2022-01-12 15:40 | disposition home or self-care (01) | DRG 189 ==
LOC: ER 03:57 → MEDSURG 05:04
PROVIDERS: Admitting Provider Student in an Organized Health Care Education/Training Program; Emergency Provider Emergency Medicine; PCP Family Medicine; Visit Provider Student in an Organized Health Care Education/Training Program
DX: J81.1 Chronic pulmonary edema (principal); J96.01 Acute respiratory failure with hypoxia; J44.1 Chronic obstructive pulmonary disease with (acute) exacerbation; N17.9 Acute kidney failure, unspecified; I50.9 Heart failure, unspecified; I27.20 Pulmonary hypertension, unspecified; E53.8 Deficiency of other specified B group vitamins; E03.9 Hypothyroidism, unspecified; F41.9 Anxiety disorder, unspecified; F32.A Depression, unspecified
CPT/HCPCS: 36415; 36600; 71045; 71250; 80053; 81003; 82436; 82805; 83605; 83880; 84133; 84145; 84300; 84484; 85025; 85378; 86403; 87040; 87449; 87635; 93005; 93306; 94640; 96374; 96375; 99285; J1650; J1940; J2920; J2930; J7626

== ENCOUNTER → 2022-01-27 14:51 | Outpatient (BNVA) | payer MEDICARE, MEDICAID, SELFPAY | PROVIDERS: PCP Family Medicine; Visit Provider Family Medicine | DX: J44.9 Chronic obstructive pulmonary disease, unspecified (principal); D64.9 Anemia, unspecified; R79.9 Abnormal finding of blood chemistry, unspecified; Z98.890 Other specified postprocedural states | CPT/HCPCS: 80053; 82607; 83540; 83921; 85025 ==

== ENCOUNTER 2022-03-04 01:19 | Emergency (ER) | payer MEDICARE, MEDICAID, SELFPAY ==
[2022-03-04 01:32] VITALS: BP 121/61; PULSE 84; RESP 20; TEMP 36.8; O2SAT 95; BMI 25.6
--- NOTE | 2022-03-04 01:35 | XRR_ITS ---
PROCEDURE INFORMATION: Exam: XR Right Ankle Exam date and time: 03/04/2022 1:58 AM Age: 66 years old Clinical indication: Injury or trauma; Fall; Blunt trauma; Ankle; Right; Additional info: Fall injury TECHNIQUE: Imaging protocol: XR Right ankle. Views: 3 or more views. COMPARISON: No relevant prior studies available. FINDINGS: Bones/joints: There is a heel spur. Subtle fracture of the lateral cortex of the distal fibula. Joint mortise and talar dome are intact. Soft tissues: Normal. XR/XR ankle RT min 3V* [id number] IMPRESSION: Subtle fracture of the lateral cortex of the distal fibula.
--- NOTE | 2022-03-04 01:35 | XRR_ITS ---
PROCEDURE INFORMATION: Exam: XR Right Foot Exam date and time: 03/04/2022 1:58 AM Age: 66 years old Clinical indication: Injury or trauma; Fall; Blunt trauma; Foot; Right; Additional info: Fall injury TECHNIQUE: Imaging protocol: XR Right foot. Views: 3 or more views. COMPARISON: No relevant prior studies available. FINDINGS: Bones/joints: Nondisplaced fracture of the proximal aspect of the 5th metatarsal. Soft tissues: Normal. XR/XR foot RT min 3V* [id number] IMPRESSION: Nondisplaced fracture of the proximal aspect of the 5th metatarsal.
--- NOTE | 2022-03-04 01:35 | XRR_ITS ---
PROCEDURE INFORMATION: Exam: XR Right Knee Exam date and time: 03/04/2022 1:58 AM Age: 66 years old Clinical indication: Injury or trauma; Fall; Blunt trauma; Right; Prior surgery; Surgery date: 6+ months; Surgery type: RT knee; Additional info: Fall injury TECHNIQUE: Imaging protocol: XR Right knee. Views: 3 views. COMPARISON: No relevant prior studies available. FINDINGS: Bones/joints: Right total knee arthroplasty in anatomic alignment. Fracture of the distal femur, extending to the femoral component of the knee arthroplasty. Soft tissues: Normal. XR/XR knee RT 3V* [id number] IMPRESSION: Fracture of the distal femur, extending to the femoral component of the knee arthroplasty.
--- NOTE | 2022-03-04 01:37 | ED_ITS ---
HPI - Extremity Injury (Lower) General: Chief Complaint: Extremity Injury, Lower Stated Complaint: RIGHT ANKLE PAIN X 3 DAYS POST FALL Time Seen by Provider: 03/04/22 01:23 History of Present Illness: Patient is a 66-year-old female who comes to the ED with right leg injury. History of right and left total knee replacements done back in 2003 at another hospital. Injury occurred approximately 7 days ago. Injury occurred when she was walking in her house and then went to sit down in chair. She twisted and then went to sit down really quick and felt her right leg pop. She is having pain now in her right knee, right foot and ankle. She also endorses a little bit of pain in left knee as well. Most of her pain is in right knee. Endorses having swelling in her knee, ankle and foot. She rates her pain 10 out of 10. She says that any weightbearing causes worsening pain. Den ies falling and hitting head or any loss of consciousness. Review of Systems Const: Denies: fever(s), chills or fatigue Eyes: Denies: change in vision or eye discomfort ENMT: Denies: throat pain, odynophagia, nasal discharge or nasal congestion Card: Denies: chest pain, palpitations, edema, swelling of feet/ankles, dyspnea on exertion or orthopnea Resp: Denies: dyspnea, productive cough or non-productive cough GI: Denies: abdominal pain, nausea, vomiting, diarrhea, constipation or hematochezia : Denies: flank pain, dysuria or hematuria Musc: Reports: extremity pain (Right knee, ankle and foot) and extremity swelling (Right knee ankle and foot); Denies: neck pain or back pain Skin/Breast: Denies: rash or new lesions Neuro: Denies: headache(s), numbness in extremities or weakness in extremities PFSH ED PFSH: Medical History Anxiety and depression COPD (chronic obstructive pulmonary disease) Environmental and seasonal allergies Fibromyalgia Fractured sternum GERD without esophagitis Hypothyroidism Lyme disease Mandibular fracture Migraines Moderate pulmonary hypertension Scoliosis Vitamin B12 deficiency Surgical History History of back surgery History of surgery on wrist Hx of appendectomy Hx of hysterectomy Hx of knee surgery Hx of shoulder surgery Family History Father Diabetes Hypertension Sister Diabetes Hypertension Other Lung disease Denies family history of Clotting disorder Suicide Stroke Social History Smoking and tobacco status: never smoked Second hand smoke exposure: No Smoking risk assessment/counseling performed?: No Alcohol intake: never Desire information about alcohol rehabilitation?: No Counseling given: No Desire information about substance/drug rehabilitation?: No Counseling given: No Adopted: No Caregiver/support person: No Lives independently: Yes Household members: none Housing: House Marital status: / Number of children: 2 Number of grandchildren: 3 Highest education level completed: Master's Degree service: No Current occupational status: retired Pets and animals: Yes History of recent travel: No Current gender identity: Female Physical Exam Const: COMMON NORMALS: patient oriented x3 and alert GENERAL APPEARANCE: cooperative HENMT: COMMON NORMALS: normocephalic HEAD & SCALP: normocephalic MOUTH: Normal oral and palatal mucosa present THROAT: posterior oropharynx normal and uvula midline Eye: COMMON NORMALS: Equal, round and reactive pupils present and conjunctivae normal CONJUNCTIVA: Yes conjunctivae normal PUPIL: Yes Equal, round and reactive pupils present Neck/C-Spine: COMMON NORMALS: supple GENERAL: Yes normal visual inspection Resp: COMMON NORMALS: normal respiratory effort, No retractions, No use of accessory muscles and clear to auscultation bilaterally AUSCULTATION: clear to auscultation bilaterally Cardio: COMMON NORMALS: regular rate, regular rhythm, S1 normal heart sound present, S2 normal heart sound present, No gallops present (Cardio), No clicks present (Cardio), No murmurs present (Cardio) and Peripheral pulses 2+ throughout RATE: regular rate RHYTHM: regular rhythm HEART SOUNDS: S1 normal heart sound present and S2 normal heart sound present PERIPHERAL PULSES: Peripheral pulses 2+ throughout GI: COMMON NORMALS: Normal to inspection, nondistended, normoactive bowel sounds present, Soft to palpation, non-tender and no masses PALPATION: Yes Soft to palpation : COMMON NORMALS: Yes no CVA tenderness BLADDER/KIDNEY EXAM: Yes no CVA tenderness Back/Pelvis: COMMON NORMALS: no CVA tenderness Extremity: NARRATIVE EXTREMITY EXAM: Right knee?visible swelling and ecchymosis noted. Tenderness throughout knee. Limited range of motion due to pain. Neurovascular tact. Right ankle and foot?mild swelling and a little ecchymosis noted in midfoot r egion. Tenderness over lateral malleolus. No visible deformity seen. Full range of motion. Neurovascular tact. Neuro: COMMON NORMALS: patient oriented x3 and moves all extremities SENSORIUM/ORIENTATION: Yes alert Skin: GENERAL SKIN EXAM: dry skin Course Consultations: Consultation #1: I contacted Dr. Yusuf and told about patient case he recommended putting patient in knee immobilizer and he will see them in the clinic for follow-up and further evaluation. Time: 03:15 Vital Signs: Vital signs: Vital Signs Temperature 98.2 F 03/04/22 01:32 Pulse Rate 78 03/04/22 02:57 Respiratory Rate 16 03/04/22 02:57 Blood Pressure 122/60 03/04/22 02:57 Pulse Oximetry 100 03/04/22 02:57 MDM - Extremity Injury (Lower) Medical Decision Making Patient is a 66-year-old female that comes to the ED with lower extremity injury. History of bilateral total knee replacement back in 2003 at another hospital. injury Occurred approximately 7 days ago. Patient says she was going to sit down and she twisted and sat down quickly and she felt a pop in her right knee. She is also having pain in the left knee, right ankle and right foot. Denies loss of consciousness or any head trauma. Vital stable. Patient does have some swelling and ecchymosis noted in right knee. Neurovascular intact distally. She has some tenderness over lateral malleolus of right ankle. Left knee, right foot and right ankle showed no acute fractures or findings. Right knee x-ray showed a nondisplaced fracture of distal femoral head. I contacted Dr. Yusuf and told about patient case and he recommended putting patient in knee immobilizer and he will see patient in clinic. Patient diagnosed with a fracture of prosthetic knee and ankle sprain. She was put in a knee immobilizer and given crutches. Patient was also sent home with a prescription for hydrocodone for pain and a wheelchair. Return to ED precautions given. I placed an order with case management for patient be referred to Ortho for follow-up. Patient understood and agreed with plan. Discharge Plan Discharge Patient Disposition: Home Clinical Impression: Fracture of prosthetic knee Qualifiers: Encounter type: initial encounter Qualified Code(s): T84.019A - Broken internal joint prosthesis, unspecified site, initial encounter Right ankle sprain Qualifiers: Encounter type: initial encounter Involved ligament of ankle: anterior talofibular ligament Qualified Code(s): S93.491A - Sprain of other ligament of right ankle, initial encounter Condition: Stable Prescriptions: No Action (DME) compressor, for nebulizer Device See Rx Instructions .Route Qty: 1 0RF Rx Instructions: As directed albuterol sulfate 2.5 mg /3 mL (0.083 %) solution for nebulization 2.5 mg inhalation QID PRN (Reason: shortness of breath or wheezing) Qty: 75 5RF dextromethorphan-guaifenesin [Mucinex DM] 60-1,200 mg tablet extended release 12 hr 1 tab PO Q12H Qty: 60 2RF budesonide-formoterol [Symbicort] 160-4.5 mcg/actuation HFA aerosol inhaler 2 puff inhalation BID Qty: 10.2 5RF (DME) nebulizer accessories Misc See Rx Instructions .Route Qty: 1 0RF Rx Instructions: As directed nebivolol [Bystolic] 5 mg tablet 5 mg PO .qhs Qty: 30 3RF cyanocobalamin (vitamin B-12) 1,000 mcg/mL solution See Rx Instructions .ROUTE .COMPLEX Qty: 1 6RF Dose Instruction: INJECT ONE ML INTRAMUSCULARLY EVERY TWO WEEKS Rx Instructions: INJECT ONE ML INTRAMUSCULARLY monthly (DME) BD SafetyGlide Syringe 3 mL 25 gauge x 1 syringe See Rx Instructions .ROUTE .MEDSUPPLY Qty: 20 3RF Rx Instructions: use with cyanocobalamin injections every 2 weeks (DME) Lift chair See Rx Instructions .Route .MEDSUPPLY Qty: 1 0RF Rx Instructions: Unable to get up from sitting to standing and lives alone. ipratropium-albuterol 0.5 mg-3 mg(2.5 mg base)/3 mL solution for nebulization See Rx Instructions .ROUTE .COMPLEX Qty: 180 2RF Dose Instruction: INHALE THE CONTENTS OF ONE VIAL PER NEBULIZER THREE TIMES DAILY Rx Instructions: INHALE THE CONTENTS OF ONE VIAL PER NEBULIZER THREE TIMES DAILY albuterol sulfate 90 mcg/actuation HFA aerosol inhaler See Rx Instructions .ROUTE .COMPLEX Qty: 18 2RF Dose Instruction: INHALE 1 PUFF INTO LUNGS FOUR TIMES DAILY NEEDED FOR SHORTNESS OF BREATH OR WHEEZING Rx Instructions: INHALE 1 PUFF INTO LUNGS FOUR TIMES DAILY NEEDED FOR SHORTNESS OF BREATH OR WHEEZING sucralfate 1 gram tablet See Rx Instructions .ROUTE .COMPLEX Qty: 30 3RF Dose Instruction: TAKE ONE TABLET BY MOUTH TWICE DAILY FOR EIGHT WEEKS Rx Instructions: TAKE ONE TABLET BY MOUTH TWICE DAILY FOR EIGHT WEEKS tramadol 50 mg tablet 50 mg PO TID PRN (Reason: pain) 30 Days Qty: 90 0RF topiramate 50 mg tablet See Rx Instructions .ROUTE .COMPLEX Qty: 60 0RF Dose Instruction: TAKE ONE TABLET BY MOUTH TWICE DAILY Rx Instructions: TAKE ONE TABLET BY MOUTH TWICE DAILY Lasix 20 mg tablet 20 mg PO QAM Qty: 30 2RF fluticasone propionate 50 mcg/actuation spray,suspension See Rx Instructions .ROUTE .COMPLEX Qty: 16 5RF Dose Instruction: USE 2 SPRAYS IN EACH NOSTRIL DAILY Rx Instructions: USE 2 SPRAYS IN EACH NOSTRIL DAILY duloxetine 60 mg capsule,delayed release(DR/EC) See Rx Instructions .ROUTE .COMPLEX Qty: 60 2RF Dose Instruction: TAKE ONE CAPSULE BY MOUTH TWICE DAILY Rx Instructions: TAKE ONE CAPSULE BY MOUTH TWICE DAILY fluconazole 40 mg/mL suspension for reconstitution See Rx Instructions .ROUTE .COMPLEX Qty: 35 2RF Dose Instruction: TAKE ONE-HALF TEASPOONFUL ( 2.5 ML'S ) BY MOUTH DAILY Rx Instructions: TAKE ONE-HALF TEASPOONFUL ( 2.5 ML'S ) BY MOUTH DAILY clonazepam 1 mg tablet,disintegrating 1 mg PO BID PRN (Reason: anxiety) Qty: 60 1RF pantoprazole 40 mg tablet,delayed release (DR/EC) See Rx Instructions .ROUTE .COMPLEX Qty: 30 0RF Dose Instruction: TAKE ONE TABLET BY MOUTH DAILY Rx Instructions: TAKE ONE TABLET BY MOUTH DAILY tizanidine 4 mg tablet See Rx Instructions .ROUTE .COMPLEX Qty: 90 1RF Dose Instruction: TAKE ONE TABLET BY MOUTH EVERY 8 HOURS NEEDED FOR MUSCLE SPASTICITY Rx Instructions: TAKE ONE TABLET BY MOUTH EVERY 8 HOURS NEEDED FOR MUSCLE SPASTICITY levothyroxine 100 mcg tablet See Rx Instructions .ROUTE .COMPLEX Qty: 30 1RF Dose Instruction: TAKE ONE TABLET BY MOUTH DAILY Rx Instructions: TAKE ONE TABLET BY MOUTH DAILY azelastine 137 mcg (0.1 %) aerosol,spray See Rx Instructions .ROUTE .COMPLEX Qty: 30 1RF Dose Instruction: USE 1 SPRAY IN EACH NOSTRIL TWICE DAILY Rx Instructions: USE 1 SPRAY IN EACH NOSTRIL TWICE DAILY promethazine 25 mg tablet See Rx Instructions .ROUTE .COMPLEX Qty: 30 1RF Dose Instruction: TAKE ONE TABLET BY MOUTH EVERY 6 HOURS NEEDED FOR NAUSEA AND VOMITING Rx Instructions: TAKE ONE TABLET BY MOUTH EVERY 6 HOURS NEEDED FOR NAUSEA AND VOMITING trazodone 150 mg tablet See Rx Instructions .ROUTE .COMPLEX Qty: 30 1RF Dose Instruction: TAKE ONE TABLET BY MOUTH AT BEDTIME Rx Instructions: TAKE ONE TABLET BY MOUTH AT BEDTIME Atrovent HFA 17 mcg/actuation HFA aerosol inhaler 2 puff INHALATION QID PRN (Reason: Shortness Of Breath) Qty: 12.9 2RF Discharge Orders: Discharge ED (Routine); Ordered 03/04/22 Ordered By: Carson Farr Referrals: Soheila Devlin MD [Primary Care Provider] - Discharge Diet: Regular Discharge Activity: Wheelchair as instructed Patient Instructions: Fractures - Knee, Opioid Safety Activity Restrictions/Additional Instructions: Follow-up with medical provider as directed. Case management will be contacting you in the next several days to set up an appointment with Ortho for further evaluation and management of knee fracture. Take medications as prescribed. Use wheelchair daily as prescribed. Return to the ER or your medical provider if condition worsens. Please read and understand discharge instructions. Thank you for choosing [facility] for your healthcare needs today. Please realize this is an emergency room and that we are providing you with a medical screening exam and this may not be complete and all inclusive of all the testing and or work up that you may need to determine your ailment or severity of your illness. It is very important that you follow up as instructed or that you return to the Emergency Department should you have concerns or if your condition changes or worsens in any way. Coding Level of Care Code ED Business And Marketing Teacher for Mahi Capps Exam Comprehensive
[2022-03-04] MEDS: HYDROcodone-acetaminophen 5-325 mg Tablet 1 TAB PO (01:48)
--- NOTE | 2022-03-04 02:08 | XRR_ITS ---
PROCEDURE INFORMATION: Exam: XR Left Knee Exam date and time: 03/04/2022 2:12 AM Age: 66 years old Clinical indication: Injury or trauma; Fall; Blunt trauma; Left; Prior surgery; Surgery date: 6+ months; Surgery type: Lt knee; Additional info: Fall injury TECHNIQUE: Imaging protocol: XR Left knee. Views: 3 views. COMPARISON: No relevant prior studies available. FINDINGS: Bones/joints: Left total knee arthroplasty in anatomic alignment. Fracture of the distal femur extending to the femoral component of the knee arthroplasty. Soft tissues: Normal. XR/XR knee LT 3V* [id number] IMPRESSION: Fracture of the distal femur extending to the femoral component of the knee arthroplasty.
[2022-03-04 02:57] VITALS: BP 122/60; PULSE 78; RESP 16; O2SAT 100
[2022-03-04 04:30] VITALS: BP 127/56; PULSE 88; RESP 16; O2SAT 95
[2022-03-04] MEDS: HYDROcodone-acetaminophen 7.5-325 mg Tablet 1 TAB PO (04:37)
[2022-03-04 07:34] VITALS: RESP 17
[2022-03-04] MEDS: morphine 4 mg/mL SDV 1 mL IM (07:34)
--- NOTE | 2022-03-04 10:21 | DCPLANNER ---
Addendum entered by Angie Flynn 03/28/22 18:46: Patient had a follow up appointment scheduled with ortho - appointment was cancelled. Addendum entered by Angie Flynn 03/06/22 14:29: Patient has a follow up appointment scheduled for Monday, March 07, 2022 at 10:[address] Yusuf at ortho. Clinic will call patient with appointment information. Original Note: senior accounting manager had message to schedule a follow up appointment for patient with ortho. senior accounting manager sent patients information to the front office staff at ortho. Patients information will be printed and reviewed. Clinic will call patient with appointment information.
== END 2022-03-04 09:17 | disposition home or self-care (01) ==
PROVIDERS: Emergency Provider Physician Assistant; PCP Family Medicine
DX: T84.012A Broken internal right knee prosthesis, initial encounter (principal); Z96.653 Presence of artificial knee joint, bilateral; Y79.2 Prosthetic and other implants, materials and accessory orthopedic devices associated with adverse incidents; S93.491A Sprain of other ligament of right ankle, initial encounter; Z79.891 Long term (current) use of opiate analgesic; W18.30XA Fall on same level, unspecified, initial encounter
CPT/HCPCS: 73562; 73610; 73630; 96372; 99283; E0114; J2270; L1830

== ENCOUNTER → 2022-09-08 14:45 | Outpatient (BNVA) | payer MEDICARE, MEDICAID, SELFPAY | PROVIDERS: PCP Family Medicine; Visit Provider Internal Medicine Cardiovascular Disease | DX: R00.0 Tachycardia, unspecified (principal); R06.00 Dyspnea, unspecified; R55 Syncope and collapse; R00.2 Palpitations; J44.9 Chronic obstructive pulmonary disease, unspecified; E03.9 Hypothyroidism, unspecified; N18.30 Chronic kidney disease, stage 3 unspecified; R94.31 Abnormal electrocardiogram [ECG] [EKG] | CPT/HCPCS: 36415; 80053; 83735; 83880; 84443; 85025; 99204 ==

== ENCOUNTER → 2023-07-22 17:23 | Outpatient (BNVA) | payer MEDICARE, MEDICAID, SELFPAY | PROVIDERS: PCP Family Medicine; Visit Provider Family Medicine | DX: J44.9 Chronic obstructive pulmonary disease, unspecified (principal); E03.9 Hypothyroidism, unspecified; E53.8 Deficiency of other specified B group vitamins; Z98.890 Other specified postprocedural states; R79.9 Abnormal finding of blood chemistry, unspecified; J96.01 Acute respiratory failure with hypoxia; N18.30 Chronic kidney disease, stage 3 unspecified; J45.901 Unspecified asthma with (acute) exacerbation; R30.0 Dysuria; F41.9 Anxiety disorder, unspecified; F32.9 Major depressive disorder, single episode, unspecified; G43.009 Migraine without aura, not intractable, without status migrainosus | CPT/HCPCS: 80053; 80061; 81000; 81003; 82306; 82607; 84443; 85025; 87086 ==

== ENCOUNTER → 2023-12-23 11:00 | Outpatient (BNVA) | payer MEDICARE, MEDICAID, SELFPAY | PROVIDERS: PCP Family Medicine; Visit Provider Family Medicine | DX: E03.9 Hypothyroidism, unspecified (principal); I27.20 Pulmonary hypertension, unspecified; J96.01 Acute respiratory failure with hypoxia; R79.9 Abnormal finding of blood chemistry, unspecified; M19.90 Unspecified osteoarthritis, unspecified site; R60.9 Edema, unspecified; R30.0 Dysuria | CPT/HCPCS: 80053; 80061; 81000; 84443; 85025 ==

== ENCOUNTER 2023-12-28 02:15 | Inpatient (IN) | payer MEDICARE, MEDICAID, SELFPAY ==
[2023-12-28] VITALS (22 sets, daily range): BP systolic 93–118; BP diastolic 48–68; PULSE 86–101; RESP 15–25; TEMP 36.5–36.8; O2SAT 91–100; BMI 22.1
--- NOTE | 2023-12-28 02:50 | ECG_ITS ---
[facility] Test Date: 2023-12-28 Pat Name: Nereida Samuels Department: Room: Gender: Female Patrol Commander: : [id number] Requested By: Martin Byrd Order Number: [id number] Shawn MD: Virginia Daily M.D. Measurements Intervals [place] Rate: 96 P: 72 CT: 184 QRS: 33 QRSD: 85 T: 60 QT: 355 QTc: 450 Interpretive Statements SINUS RHYTHM NONSPECIFIC ST & T-WAVE ABNORMALITY Compared to ECG 01/11/2022 09:05:20 No significant changes Electronically Signed On 12-29-2023 0:32:02 INFORMATION SUPPORT PROJECT MANAGER by Virginia Daily M.D. [email or web address]
--- NOTE | 2023-12-28 02:50 | XRR_ITS ---
PROCEDURE INFORMATION: Exam: XR Chest Exam date and time: 12/28/2023 2:54 AM Age: 68 years old Clinical indication: Chest pressure; Patient HX: C/O chest pain. Copd. ; Additional info: Cp TECHNIQUE: Imaging protocol: Radiologic exam of the chest. Views: 1 view. COMPARISON: CT chest [facility] [id number] 01/11/2022 3:24 PM FINDINGS: Lungs: Hazy right lower lobe opacities. Pleural spaces: No large pleural effusion. No pneumothorax. Heart/Mediastinum: Mild cardiomegaly. Bones/joints: No acute abnormality. XR/XR chest 1V portable [id number] IMPRESSION: Hazy right lower lobe opacities, could be infiltrate and/or atelectasis.
[2023-12-28] MEDS: ondansetron 2 mg/ML SDV 2 mL 4 MG IVP ×2 (03:02→09:37)
[2023-12-28] MEDS: morphine 4 mg/mL SDV 1 mL 2 MG IVP ×3 (03:09→15:25)
--- NOTE | 2023-12-28 03:37 | ED_ITS ---
HPI - Chest Pain 2 General: Chief Complaint: Chest Pain Stated Complaint: CP Time Seen by Provider: 12/28/23 02:33 History of Present Illness: 68-year-old female presenting by EMS thi s morning with multiple complaints. Main complaint is chest pain. She has had some shortness of breath as well. Mild cough. She does not have a history of coronary disease. She does have a history of asthma she says. She has not been coughing anything up. No fever. Associated symptoms: Reports dyspnea and nausea; Deny abdominal pain, fever(s), palpitations or vomiting Review of Systems 2 Const: Reports: chills; Denies: fever(s) ENMT: Reports: throat pain Card: Reports: chest pain; Denies: palpitations Resp: Reports: dyspnea and productive cough GI: Reports: nausea; Denies: abdominal pain or vomiting Skin/Breast: Denies: rash Neuro: Reports: weakness in extremities and dizziness; Denies: numbness in extremities PFSH ED 2 PFSH: Medical History CKD (chronic kidney disease) stage 3, GFR 30-59 ml/min Syncope and collapse COPD (chronic obstructive pulmonary disease) Moderate pulmonary hypertension Lyme disease Fibromyalgia Scoliosis GERD without esophagitis Mandibular fracture Fractured sternum Environmental and seasonal allergies Vitamin B12 deficiency Migraines Hypothyroidism Anxiety and depression Surgical History Hx of knee surgery Hx of shoulder surgery Hx of hysterectomy Hx of appendectomy History of back surgery History of surgery on wrist Family History Father Diabetes Hypertension Sister Diabetes Hypertension Other Lung disease Social History Smoking and tobacco/nicotine status: never used tobacco/nicotine Second hand smoke exposure: No Alcohol intake: never Substance/Drug Use: never Adopted: No Caregiver/support person: No Lives independently: Yes Household members: none Housing: House Marital status: / Number of children: 2 Number of grandchildren: 3 Highest education level completed: Master's Degree service: No Current occupational status: retired Pets and animals: Yes Do you think of yourself as: Straight/Heterosexual Current gender identity: Female Physical Exam 2 Const: GENERAL APPEARANCE: cooperative and frail appearing HENMT: COMMON NORMALS: normocephalic, atraumatic and Normal external nose present HEAD & SCALP: normocephalic and atraumatic FACE & SINUS: normal facial exam and face symmetric NOSE: Normal external nose present Eye: COMMON NORMALS: Equal, round and reactive pupils present and EOMs intact bilaterally PUPIL: Yes Equal, round and reactive pupils present Neck/C-Spine: GENERAL: Yes trachea midline Chest: CHEST: Yes Symmetrical chest wall rise Resp: COMMON NORMALS: normal respiratory effort, No retractions, No use of accessory muscles and clear to auscultation bilaterally AUSCULTATION: clear to auscultation bilaterally Cardio: COMMON NORMALS: regular rate and regular rhythm RATE: regular rate RHYTHM: regular rhythm GI: COMMON NORMALS: Normal to inspection, nondistended, normoactive bowel sounds present and Soft to palpation PALPATION: Yes Soft to palpation Extremity: GENERAL: Yes edema Neuro: JAYMIE COMA SCALE: document GCS findings [place] coma scale eye opening: Spontaneous Jaymie coma scale verbal response: Orientated Jaymie coma scale motor response: Obey commands [place] coma scale total score: 15 S ENSORY EXAM: Yes extremities (intact) Psych: COMMON NORMALS: speech normal SPEECH: Yes normal speech Skin: COMMON NORMALS: no rashes or lesions noted GENERAL SKIN EXAM: no rashes or lesions noted Course 2 Vital Signs: Vital signs: Vital Signs Temperature 97.9 F 12/28/23 20:00 Pulse Rate 92 12/28/23 20:00 Respiratory Rate 18 12/28/23 20:00 Blood Pressure 93/57 12/28/23 20:00 Pulse Oximetry 99 12/28/23 20:00 Oxygen Delivery Me thod Room Air 12/28/23 20:00 Oxygen Flow Rate 2 12/28/23 08:41 MDM - Chest Pain Medical Decision Making Spoke with hospitalist regarding this patient. No acute changes on EKG. Hemoglobin is 8.2 which is down nearly 2 points from 4 to 5 days ago. Creatinine is 1.1 which is stable. X-ray shows right lower lobe atelectasis. Her BNP is 5000. Troponin is 154. Highest troponin she has had in the past is 11. Suspect non-STEMI in this patient. Will require admission. Hospitalist has seen the patient in the ER. Lab Data 12/28/23 12:06 12/28/23 03:40 Radiology Impressions Chest X-Ray 12/28/23 02:50 IMPRESSION: Hazy right lower lobe opacities, could be infiltrate and/or atelectasis. Chest/Abdomen/Pelvis CT 12/28/23 13:16 IMPRESSION: No acute findings. IMPRESSION: No acute findings. Laboratory Results WBC 7.71 10^3/uL (3.29-11.43) 12/28/23 03:40 RBC 3.35 10^6/uL (3.85-5.65) L 12/28/23 03:40 Hgb 8.20 g/dL (11.27-16.99) L 12/28/23 03:40 Hct 27.6 % (36-47) L 12/28/23 03:40 MCV 82.4 fl (85-98) L 12/28/23 03:40 MCH 24.5 pg (27-33) L 12/28/23 03:40 MCHC 29.7 g/dL (30-55) L 12/28/23 03:40 RDW 15.9 % (12.1-15.1) H 12/28/23 03:40 Plt Count 293 10^3/cmm (157-399) 12/28/23 03:40 MPV 10.2 fL (7.4-10.4) 12/28/23 03:40 Neut % (Auto) 64.7 % 12/28/23 03:40 Lymph % (Auto) 24.6 % 12/28/23 03:40 [place] % (Auto) 8.3 % 12/28/23 03:40 Eos % (Auto) 1.6 % 12/28/23 03:40 Baso % (Auto) 0.4 % 12/28/23 03:40 Neut # (Auto) 4.99 10^3/uL (1.8-7.7) 12/28/23 03:40 Lymph # (Auto) 1.9 10^3/uL (0.8-4.8) 12/28/23 03:40 [place] # (Auto) 0.6 10^3/uL (0.2-0.9) 12/28/23 03:40 Eos # (Auto) 0.1 10^3/uL (0.0-0.8) 12/28/23 03:40 Baso # (Auto) 0.0 10^3/uL (0.0-0.1) 12/28/23 03:40 Nucleated RBC % (auto) 0 % 12/28/23 03:40 Nucleated RBCs # 0.0 /100WBC 12/28/23 03:40 PT 12.90 SECONDS (12.1-14.9) 12/28/23 03:40 INR 0.94 (0.8-1.2) 12/28/23 03:40 APTT 26.6 SECONDS (23.9-36.7) 12/28/23 03:40 Sodium 137 mmol/L (136-145) 12/28/23 03:40 Potassium 3.8 mmol/L (3.5-5.1) 12/28/23 03:40 Chloride 101 mmol/L (98-107) 12/28/23 03:40 Carbon Dioxide 25 mmol/L (22-29) 12/28/23 03:40 Anion Gap 14.8 (5-19) 12/28/23 03:40 BUN 39 mg/dL (8-23) H 12/28/23 03:40 Creatinine 1.1 mg/dL (0.5-0.9) H 12/28/23 03:40 GFR Calculation 49.2 mL/min (90-130) L 12/28/23 03:40 Glucose 81 mg/dL (65-115) 12/28/23 03:40 Calculated Osmolality 292 mOsm/kg (285-295) 12/28/23 03:40 Calcium 8.3 mg/dL (8.5-10.5) L 12/28/23 03:40 Magnesium 2.2 mg/dL (1.7-2.3) 12/28/23 03:40 Total Bilirubin 0.2 mg/dL (0.15-1.2) 12/28/23 03:40 AST 18 U/L (0-32) 12/28/23 03:40 ALT 10 U/L (0-33) 12/28/23 03:40 Alkaline Phosphatase 97 U/L (35-105) 12/28/23 03:40 Creatine Kinase 106 U/L (26-192) 12/28/23 03:40 Troponin T Baseline 154 ng/L (0-10) H* 12/28/23 03:40 Troponin T 120 Minute 216.0 ng/L (0-10) H 12/28/23 05:11 Delta Troponin T 62.0 ABS# (0-10) H* 12/28/23 05:11 NT-Pro-B Natriuret Pep 5092 pg/mL (0-125) H 12/28/23 03:40 Total Protein 5.4 g/dL (6.6-8.7) L 12/28/23 03:40 Albumin 3.4 g/dL (3.5-5.2) L 12/28/23 03:40 Globulin 2.0 g/dL (1.3-4.6) 12/28/23 03:40 Urine Color Straw (Yellow) 12/28/23 05:33 Urine Appearance Clear (CLEAR) 12/28/23 05:33 Urine pH 7 (5-7) 12/28/23 05:33 Ur Specific [place] 1.005 (1.005-1.030) 12/28/23 05:33 Urine Protein Neg (Negative) 12/28/23 05:33 Urine Glucose (UA) Norm (Normal) 12/28/23 05:33 Urine Ketones Negative (Negative) 12/28/23 05:33 Urine Blood Neg (Negative) 12/28/23 05:33 Urine Nitrate Negative (Negative) 12/28/23 05:33 Urine Bilirubin Neg (Negative) 12/28/23 05:33 Urine Urobilinogen Norm mg/dL (Negative) 12/28/23 05:33 Ur Leukocyte Esterase Negative (Negative) 12/28/23 05:33 Adenovirus (PCR) Not detected (NOT DETECT) 12/28/23 03:48 C. pneumoniae DNA (PCR) Not detected (NOT DETECT) 12/28/23 03:48 Coronavirus 229E (PCR) Not detected (NOT DETECT) 12/28/23 03:48 Human Metapneumovir PCR Not detected (NOT DETECT) 12/28/23 03:48 Influenza A (H1) PCR Not detected (NOT DETECT) 12/28/23 03:48 Influ A (H1/09) PCR Not detected (NOT DETECT) 12/28/23 03:48 Influenza A (H3) PCR Not detected (NOT DETECT) 12/28/23 03:48 Influenza Type A (PCR) Not detected (NOT DETECT) 12/28/23 03:48 Influenza Type B (PCR) Not detected (NOT DETECT) 12/28/23 03:48 M. pneumoniae (PCR) Not detected (NOT DETECT) 12/28/23 03:48 Parainfluenza 1 (PCR) Not detected (NOT DETECT) 12/28/23 03:48 Parainfluenza 2 (PCR) Not detected (NOT DETECT) 12/28/23 03:48 Parainfluenza 3 (PCR) Not detected (NOT DETECT) 12/28/23 03:48 Parainfluenza 4 (PCR) Not detected (NOT DETECT) 12/28/23 03:48 RSV Type A (PCR) Not detected (NOT DETECT) 12/28/23 03:48 RSV Type B (PCR) Not detected (NOT DETECT) 12/28/23 03:48 Entero/Rhino (PCR) Not detected (NOT DETECT) 12/28/23 03:48 SARS-CoV-2 (PCR) Not detected (NOT DETECT) 12/28/23 03:48 All radiology interpretation(s) finalized by discharge Discharge Plan Discharge Patient Disposition: Admitted As Inpatient Admit Provider: Hank Berry Clinical Impression: Chest pain, Non-ST elevated myocardial infarction Condition: Stable Coding Level of Care Code ED Stem Setter for Mahi Capps
[2023-12-28 03:49] LABS: Basophils % 0.4 %; Eosinophils # 0.1 10^3/uL (0.0-0.8); Eosinophils % 1.6 %; Hematocrit 27.6 % (36-47); Lymphocytes # 1.9 10^3/uL (0.8-4.8); Lymphocytes % 24.6 %; Mean Corpuscular HGB Conc 29.7 g/dL (30-55); Mean Corpuscular Hemoglobin 24.5 pg (27-33); Mean Corpuscular Volume 82.4 fl (85-98); Mean Platelet Volume 10.2 fL (7.4-10.4); Monocytes # 0.6 10^3/uL (0.2-0.9); Monocytes % 8.3 %; Neutrophils # 4.99 10^3/uL (1.8-7.7); Neutrophils % 64.7 %; Nucleated Red Blood Cells % 0 %; Platelet Count 293 10^3/cmm (157-399); Red Blood Count 3.35 10^6/uL (3.85-5.65); Red Cell Distribution Width 15.9 % (12.1-15.1); White Blood Count 7.71 10^3/uL (3.29-11.43)
[2023-12-28 04:01] LABS: INR 0.94 (0.8-1.2)
[2023-12-28 04:02] LABS: Partial Thromboplastin Time 26.6 SECONDS (23.9-36.7)
[2023-12-28 04:11] LABS: Troponin(5th) Baseline 154 ng/L (0-10)
[2023-12-28 04:17] LABS: Alanine Aminotransferase 10 U/L (0-33); Albumin Level 3.4 g/dL (3.5-5.2); Alkaline Phosphatase 97 U/L (35-105); Anion Gap 14.8 (5-19); Aspartate Amino Transferase 18 U/L (0-32); Blood Urea Nitrogen 39 mg/dL (8-23); Calcium 8.3 mg/dL (8.5-10.5); Carbon Dioxide 25 mmol/L (22-29); Chloride 101 mmol/L (98-107); Creatine Phosphokinase 106 U/L (26-192); Creatinine Clr Calc Pharmacy 39.6344; Glomerular Filtration Rate 49.2 mL/min (90-130); Glucose 81 mg/dL (65-115); Magnesium 2.2 mg/dL (1.7-2.3); NT Pro B Type Natriuretic Pept 5092 pg/mL (0-125); Osmolality Calculated 292 mOsm/kg (285-295); Potassium 3.8 mmol/L (3.5-5.1); Sodium 137 mmol/L (136-145); Total Bilirubin 0.2 mg/dL (0.15-1.2); Total Protein 5.4 g/dL (6.6-8.7)
[2023-12-28] MEDS: bumetanide 0.25 mg/mL SDV 4 mL 2 MG IVP (04:24)
--- NOTE | 2023-12-28 04:50 | ECG_ITS ---
[facility] Test Date: 2023-12-28 Pat Name: Nereida Samuels Department: Room: Gender: Female Banking Services Officer: : 1955 Requested By: Martin Byrd Order Number: [id number] Shawn MD: Virginia Daily M.D. Measurements Intervals [place] Rate: 88 P: 55 SD: 182 QRS: 10 QRSD: 80 T: 34 QT: 376 QTc: 457 Interpretive Statements SINUS RHYTHM NONSPECIFIC T-WAVE ABNORMALITY Compared to ECG 12/28/2023 02:22:52 No significant changes Electronically Signed On 12-29-2023 0:48:08 RIBBON BLOCKER by Virginia Daily M.D. [id number]
--- NOTE | 2023-12-28 05:21 | P.HP_ITS ---
Providers/Chief Complaint 2 Admitting Physician: chai Primary Care Provider: Soheila Devlin MD Chief Complaint: CP History of Present Illness Nereida Samuels is a 68 year old female with history of CHF and lower extremity edema presents with a day of chest pain located left chest under breast. She had radiation to her jaw down her left arm. She has shortness of breath she denied any nausea or vomiting. She states that she has had chest pain before but this was nothing like it had felt in the past. Today it felt like pressure like someone stepping on her chest. She states her lower extremities have been swollen since September and they have been trying to deal with it. She states it is getting worse instead of better. She also reports some lymph node swelling and trouble swallowing. She is asking for assistance. Review of Systems 2 Const: Denies: fever(s) or chills Eyes: Denies: change in vision ENMT: Denies: nasal congestion Card: Reports: chest pain; Denies: palpitations Resp: Reports: dyspnea; Denies: productive cough GI: Reports: dysphagia (Food feeling like it stuck); Denies: abdominal pain, nausea, vomiting or change in stool character : Denies: dysuria Musc: Denies: back pain or extremity pain Skin/Breast: Denies: rash or lesions Neuro: Denies: dizziness Psych: Denies: anxiety or depression Luca/Lymph: Denies: easy bruising or easy bleeding Medications/Allergies Home Medications Medication Instructions Recorded Confirmed Last Taken Type Lift chair #1 ea 04/27/20 12/23/23 Unknown Rx compressor, for nebulizer #1 ea 08/20/21 12/23/23 Unknown Rx nebulizer accessories #1 ea 08/20/21 12/23/23 Unknown Rx egenjbr-maxawcwupjxkf-tkeietxl 250 1 tab PO Q6H PRN 09/08/22 12/23/23 Unknown History mg-250 mg-65 mg tablet (Excedrin Migraine) albuterol sulfate 90 mcg/actuation See Rx Instructions .Route 11/19/22 12/23/23 Unknown Rx aerosol inhaler .COMPLEX #18 grams fluticasone propionate 50 See Rx Instructions .Route 11/19/22 12/23/23 Unknown Rx mcg/actuation nasal .COMPLEX #16 grams spray,suspension syringe with needle 3 mL 25 gauge #20 ea 04/13/23 12/23/23 Unknown Rx x 1 (BD Luer-Thai Syringe) cyanocobalamin (vitamin B-12) See Rx Instructions .Route 05/13/23 12/23/23 Unknown Rx 1,000 mcg/mL injection solution .COMPLEX #3 mL duloxetine 60 mg capsule,delayed See Rx Instructions .Route 05/13/23 12/23/23 Unknown Rx release .COMPLEX #180 caps pantoprazole 40 mg tablet,delayed See Rx Instructions .Route 05/13/23 12/23/23 Unknown Rx release .COMPLEX #90 tabs topiramate 50 mg tablet See Rx Instructions .Route 05/13/23 12/23/23 Unknown Rx .COMPLEX #180 tabs baclofen 10 mg tablet 10 mg PO TID #90 tabs 07/22/23 12/23/23 Unknown Rx budesonide-formoterol HFA 160 See Rx Instructions .Route 07/22/23 12/23/23 Unknown Rx mcg-4.5 mcg/actuation aerosol .COMPLEX PRN copd #10.2 grams inhaler (Symbicort) ciprofloxacin HCl 500 mg tablet 500 mg PO BID #20 tabs 07/22/23 12/23/23 Unknown Rx fluconazole 40 mg/mL oral See Rx Instructions .Route 07/22/23 12/23/23 Unknown Rx suspension .COMPLEX #35 mL ipratropium 0.5 mg-albuterol 3 mg See Rx Instructions .Route 07/22/23 12/23/23 Unknown Rx (2.5 mg base)/3 mL nebulization .COMPLEX #180 mL soln rizatriptan 10 mg tablet (Maxalt) See Rx Instructions PO .COMPLEX 07/22/23 12/23/23 Unknown Rx #14 tabs cholecalciferol (vitamin D3) 1,250 50,000 unit PO .every week #4 tabs 07/29/23 12/23/23 Unknown Rx mcg (50,000 unit) tablet albuterol sulfate 2.5 mg/3 mL 2.5 mg (3 mL) inhalation QID PRN 09/16/23 12/23/23 Unknown Rx (0.083 %) solution for nebulization shortness of breath or wheezing #180 mL azelastine 137 mcg (0.1 %) nasal See Rx Instructions .Route 09/16/23 12/23/23 Unknown Rx spray aerosol .COMPLEX #30 mL ipratropium bromide 17 See Rx Instructions .Route 09/16/23 12/23/23 Unknown Rx mcg/actuation HFA aerosol inhaler .COMPLEX #12.9 grams (Atrovent HFA) metoprolol succinate 25 mg 25 mg PO DAILY #30 tabs 09/16/23 12/23/23 Unknown Rx tablet,extended release 24 hr trazodone 150 mg tablet See Rx Instructions .Route 09/16/23 12/23/23 Unknown Rx .COMPLEX #90 tabs levothyroxine 88 mcg tablet 88 mcg PO DAILY #30 tabs 10/12/23 12/23/23 Unknown Rx fluconazole 150 mg tablet 150 mg PO DAILY #7 tabs 10/19/23 12/23/23 Unknown Rx aripiprazole 10 mg tablet (Abilify) 10 mg PO DAILY #30 tabs 11/11/23 12/23/23 Unknown Rx clonazepam 1 mg disintegrating 1 mg PO BID #60 tabs 11/11/23 12/23/23 Unknown Rx tablet promethazine 25 mg tablet See Rx Instructions .Route 11/11/23 12/23/23 Unknown Rx .COMPLEX #30 tabs tizanidine 4 mg tablet 8 mg (2 x 4 mg) PO Q8H PRN muscle 12/14/23 12/23/23 Unknown Rx spasticity #180 tabs furosemide 40 mg tablet See Rx Instructions .Route 12/23/23 12/23/23 Unknown Rx .COMPLEX #20 tabs hydrocortisone 1 % topical cream 1 applic topical DAILY PRN rash 12/23/23 12/23/23 Unknown Rx #28.4 grams potassium chloride 10 mEq 10 meq PO DAILY #20 tabs 12/23/23 12/23/23 Unknown Rx tablet,extended release tramadol 50 mg tablet 50 mg PO Q8H PRN pain #90 tabs 12/23/23 12/23/23 Unknown Rx Allergies Allergy/AdvReac Type Severity Reaction Status Date / Time nitrofurantoin Allergy Unknown Unknown Verified 12/23/23 10:39 [From Macrobid] red dye Allergy ALGY-Rash Verified 12/23/23 10:39 Sulfa (Sulfonamide Allergy upset Verified 12/23/23 10:39 Antibiotics) stomach Tetracyclines Allergy ADR-Dizzine Verified 12/23/23 10:39 ss PFSH Acute 2 PFSH: Medical History CKD (chronic kidney disease) stage 3, GFR 30-59 ml/min Syncope and collapse COPD (chronic obstructive pulmonary disease) Moderate pulmonary hypertension Lyme disease Fibromyalgia Scoliosis GERD without esophagitis Mandibular fracture Fractured sternum Environmental and seasonal allergies Vitamin B12 deficiency Migraines Hypothyroidism Anxiety and depression Surgical History Hx of knee surgery Hx of shoulder surgery Hx of hysterectomy Hx of appendectomy History of back surgery History of surgery on wrist Family History Father Diabetes Hypertension Sister Diabetes Hypertension Other Lung disease Social History Smoking and tobacco/nicotine status: never used tobacco/nicotine Second hand smoke exposure: No Alcohol intake: never Substance/Drug Use: never Adopted: No Caregiver/support person: No Lives independently: Yes Household members: none Housing: House Marital status: / Number of children: 2 Number of grandchildren: 3 Highest education level completed: Master's Degree service: No Current occupational status: retired Pets and animals: Yes Do you think of yourself as: Straight/Heterosexual Current gender identity: Female Vitals/I&O/Wt Last Vital Signs Temp 97.8 F 12/28/23 02:27 Pulse 99 12/28/23 02:27 Resp 18 12/28/23 03:09 BP 118/68 12/28/23 02:27 Pulse Ox 96 12/28/23 03:09 O2 Del Method Room Air 12/28/23 02:27 Weight last 48 hrs Weight 54.885 kg Physical Exam 2 Narrative: Thin frail woman except for extremely edematous lower extremities is in no acute distress at time of exam. She appears poorly nourished and hydration is difficult to assess due to the lower extremity edema Neuro: Alert and oriented to person place time and situation exam is nonfocal HEENT head is normocephalic atraumatic pupils equal round reactive to light and commendation extraocular muscles are intact there is no scleral icterus neck mucous membranes are moist and pink without lesions or exudates neck is supple without JVD carotid carotid bruits or lymphadenopathy heart is a regular normal S1-S2 without murmurs clicks gallops or rubs lungs normal breath sounds no wheezes rales or rhonchi abdomen flat soft nontender nondistended positive bowel sounds no hepatosplenomegaly extremities bilateral lower extremities show pitting on top of nonpitting edema with induration on calves laying in bed. Psych mood and affect is appropriate. Back: Severe scoliosis is noted concave to the left in the thoracic region. No CVA tenderness. Skin no lesions or rashes noted Data 12/28/23 03:40 12/28/23 03:40 CXR: My impression: Bilateral effusions EKG 1: My Interpretation: Sinus rhythm no significant ST-T wave abnormality. EKG 2: My Interpretation: Sinus rhythm no significant ST-T wave abnormality. A&P Assessment and plan (1) Non-ST elevated myocardial infarction: (2) Chest pain: (3) Edema: Qualifiers: Edema type: unspecified Qualified Code(s): R60.9 - Edema, unspecified (4) CKD (chronic kidney disease) stage 3, GFR 30-59 ml/min: Plan Admit to CSU for acute coronary syndrome care. Aspirin Plavix and Lovenox full dose Await second troponin anticipate a positive delta. For CHF will add Bumex 1 mg every 12 hours. Cardiology consult likely today for cath tomorrow. Attestations 2 Medical Necessity Statement*: Patient is admitted for acute coronary syndrome patient require 2 midnight stay for workup and treatment of this syndrome Coding Level of Care Code Acute Code for [facility] Diagnoses Non-ST elevated myocardial infarction I21.4 Chest pain R07.9 Edema, unspecified type R60.9 Edema type: unspecified CKD (chronic kidney disease) stage 3, GFR 30-59 ml/min N18.30
[2023-12-28 05:47] LABS: Adenovirus Not Detected (NOT DETECT); Chlamydia Pneumoniae Not Detected (NOT DETECT); Coronavirus 229E,HKU1,NL63,OC4 Not Detected (NOT DETECT); Human Metapneumovirus Not Detected (NOT DETECT); Human Rhinovirus/Enterovirus Not Detected (NOT DETECT); Influenza A Not Detected (NOT DETECT); Influenza A H1 Not Detected (NOT DETECT); Influenza A H1-2009 Not Detected (NOT DETECT); Influenza A H3 Not Detected (NOT DETECT); Influenza B Not Detected (NOT DETECT); Mycoplasma Pneumoniae Not Detected (NOT DETECT); Parainfluenza Virus Type 1 Not Detected (NOT DETECT); Parainfluenza Virus Type 2 Not Detected (NOT DETECT); Parainfluenza Virus Type 3 Not Detected (NOT DETECT); Parainfluenza Virus Type 4 Not Detected (NOT DETECT); Respiratory Syncytial Virus A Not Detected (NOT DETECT); Respiratory Syncytial Virus B Not Detected (NOT DETECT); SARS-COV-2 Not Detected (NOT DETECT)
[2023-12-28 05:54] LABS: Add Urine Microscopic? NO; Charge for UA Resulting for Rev
[2023-12-28 05:57] LABS: Bilirubin Urine Neg (Negative); Blood Urine Neg (Negative); Glucose Urine UA Norm (Normal); Ketones Urine Negative (Negative); Leukocyte Esterase Urine Negative (Negative); Nitrate Urine Negative (Negative); Protein Urine Neg (Negative); Specific Gravity, Urine 1.005 (1.005-1.030); Urine Appearance Clear (CLEAR); Urine Color Straw (Yellow); Urobilinogen Urine Norm (Negative); pH Urine 7 (5-7)
[2023-12-28] MEDS: clopidogrel 300 mg Tablet PO (07:22)
[2023-12-28] MEDS: enoxaparin 60 mg/0.6 mL Syringe SUBCUT ×2 (07:22→20:18)
[2023-12-28] MEDS: budesonide 0.5 mg/2 mL Neb INHALATION ×2 (08:39→20:38)
[2023-12-28] MEDS: ipratropium-albuterol 3 mL Neb NEBULIZER ×3 (08:39→20:38)
[2023-12-28] MEDS: potassium chloride ER 10 mEq Tablet PO (09:13)
[2023-12-28] MEDS: ARIPiprazole 10 mg Tablet PO (09:13)
[2023-12-28] MEDS: duloxetine 60 mg Capsule PO ×2 (09:14→17:35)
[2023-12-28] MEDS: CLONazepam 1 mg Tablet PO ×2 (09:15→17:35)
[2023-12-28] MEDS: topiramate 25 mg Tablet 50 MG PO ×2 (09:15→17:35)
[2023-12-28] MEDS: pantoprazole DR 40 mg Tablet PO (09:15)
[2023-12-28] MEDS: levothyroxine 88 mcg Tablet PO (09:15)
--- NOTE | 2023-12-28 09:52 | ECG_ITS ---
[facility] Test Date: 2023-12-28 Pat Name: Nereida Samuels Department: Room: 104 Gender: Female Web Content & Social Media Manager: : 1955 Requested By: Martin Byrd Order Number: [id number] Shawn MD: Virginia Daily M.D. Measurements Intervals [place] Rate: 93 P: 41 CA: 185 QRS: 6 QRSD: 75 T: 95 QT: 362 QTc: 452 Interpretive Statements SINUS RHYTHM NONSPECIFIC ST & T-WAVE ABNORMALITY Compared to ECG 12/28/2023 05:08:22 No significant changes Electronically Signed On 12-29-2023 0:51:20 EQUIPMENT TECH by Virginia Daily M.D. [id number]
[2023-12-28 10:16] LABS: Troponin 5 6HR 300.5 ng/L (0-10); Troponin 5 6HR Delta 146.5 ng/L (0-12)
--- NOTE | 2023-12-28 10:58 | USCV_ITS ---
Nereida Samuels Age: 68 Gender: F : 1955 Exam Date: 12/28/2023 13:21 Ordering Phys: Satnam Ferguson MD Technologist: Exam Location[place] [facility] [place]: pedal edema chf BP: 111 / 54 HR: 0 Rhythm: Sinus Technical Quality: Adequate MEASUREMENTS (Male / Female) Normal Values 2D ECHO LV Diastolic Diameter PLAX 3.0 cm 4.2 - 5.9 / 3.9 - 5.3 cm IVS Diastolic Thickness 1.2 cm 0.6 - 1.0 / 0.6 - 0.9 cm IVS Systolic Thickness 1.4 cm LVPW Diastolic Thickness 0.9 cm 0.6 - 1.0 / 0.6 - 0.9 cm LVPW Systolic Thickness 1.2 cm LVOT Diameter 2.0 cm LV Ejection Fraction 2D Teich 54.0 % LV Ejection Fraction MOD 2C 62.4 % LV Ejection Fraction 2C AL 0.0 % LA Diameter 3.9 cm IVC Diameter 1.5 cm M-MODE LA Ao Ratio MM 1.6 AV Cusp Separation MM 2.1 cm DOPPLER LVOT Peak Velocity 108.0 cm/s AV Area Cont Eq vti 2.5 cm squared AV Area Cont Eq pk 3.0 cm squared MV Area PHT 4.9 cm squared Mitral E to A Ratio 1.1 TV Peak Velocity 290.5 cm/s TR Peak Velocity 300.0 cm/s TR Peak Gradient 36.0 mmHg TV Peak E Velocity 86.0 cm/s Right Atrial Pressure 3.0 mmHg Pulmonary Artery Systolic Pressu 39.0 mmHg PV Peak Velocity 146.0 cm/s FINDINGS Left Ventricle Left ventricle is normal in size. LV systolic function is normal with EF of 55 to 60%. No regional wall motion abnormalities are seen. Right Ventricle Normal in size and function Right Atrium Normal in size Left Atrium Normal in size Mitral Valve Structurally normal mitral valve. Mild mitral regurgitation. Aortic Valve Structurally normal aortic valve. No significant stenosis or regurgitation. Tricuspid Valve Trace tricuspid regurgitation. Insufficient TR jet to calculate RVSP. Pulmonic Valve Not well-visualized Pericardium Normal Aorta Normal in size IVC Not well visualized CONCLUSIONS LV systolic function is normal with EF of 55 to 60%. Mild mitral regurgitation. Trace tricuspid regurgitation. Compared to prior echocardiogram from 2022, no significant changes are seen Tyron Cortes MD (Electronically Signed) Final Date: 28 December 2023 14:42 S
--- NOTE | 2023-12-28 11:17 | USCV_ITS ---
Nereida Samuels Age: 68 Gender: F : 1955 Exam Date: 12/28/2023 13:43 Ordering Phys: Satnam Ferguson MD Technologist: Exam [place] [facility] [place]: pedal edema PROCEDURES: The venous duplex Doppler examination of both lower extremities was performed in the standard fashion. The following venous structures were evaluated: common femoral vein, profunda vein, proximal portion of the greater saphenous vein, superficial femoral vein, and the popliteal vein. In addition, the posterior tibial and peroneal trunk were evaluated. FINDINGS: Normal 2-D Doppler and augmentation and compressibility throughout the lower extremity venous structures. Additional imaging through the proximal calf veins also reveals no thrombus. Limited evaluation of the greater saphenous vein is patent with no thrombus. CONCLUSIONS No DVT bilateral lower extremities. Dr. Sis Dorsey DO (Electronically Signed) Final Date: 28 December 2023 15:02 S
--- NOTE | 2023-12-28 11:23 | P.CONIM_ITS ---
Providers/Reason For Consult 2 Consulting Physician/Specialty*: Tyron Cortes MD/ Cardiology Reason for Consult*: NSTEMI Requesting Physician: Dr Ferguson Attending Physician: Satnam Ferguson MD Primary Care Provider: Soheila Devlin MD History of Present Illness History of Present Illness Nereida Samuels is a 68 year old female with past medical history of COPD was presented to hospital with chest pain and shortness of breath. According to patient has been having chest pain however yesterday became worse. It is substernal radiating to the jaw and left arm. Troponins trended up from baseline of 154 to 300 at 6 hours. EKG showed normal sinus rhythm with non specific ST T wave changes. Review of Systems 2 Const: Denies: fever(s) or chills Eyes: Denies: change in vision ENMT: Denies: nasal congestion Card: Reports: chest pain; Denies: palpitations Resp: Reports: dyspnea; Denies: productive cough GI: Reports: dysphagia; Denies: abdominal pain, nausea, vomiting or change in stool character : Denies: dysuria Musc: Denies: back pain or extremity pain Skin/Breast: Denies: rash or lesions Neuro: Denies: dizziness Psych: Denies: anxiety or depression Luca/Lymph: Denies: easy bruising or easy bleeding Medications/Allergies Home Medications Medication Instructions Recorded Confirmed Last Taken Type Lift chair #1 ea 04/27/20 12/28/23 Unknown Rx compressor, for nebulizer #1 ea 08/20/21 12/28/23 Unknown Rx nebulizer accessories #1 ea 08/20/21 12/28/23 Unknown Rx [id number] 250 1 tab PO Q6H PRN Headache 09/08/22 12/28/23 12/27/23 History mg-250 mg-65 mg tablet (Excedrin Migraine) albuterol sulfate 90 mcg/actuation See Rx Instructions .Route 11/19/22 12/28/23 Unknown Rx aerosol inhaler .COMPLEX #18 grams syringe with needle 3 mL 25 gauge #20 ea 04/13/23 12/28/23 Unknown Rx x 1 (BD Luer-Thai Syringe) cyanocobalamin (vitamin B-12) See Rx Instructions .Route 05/13/23 12/28/23 12/03/23 Rx 1,000 mcg/mL injection solution .COMPLEX #3 mL duloxetine 60 mg capsule,delayed See Rx Instructions .Route 05/13/23 12/28/23 12/27/23 Rx release .COMPLEX #180 caps pantoprazole 40 mg tablet,delayed See Rx Instructions .Route 05/13/23 12/28/23 12/27/23 Rx release .COMPLEX #90 tabs topiramate 50 mg tablet See Rx Instructions .Route 05/13/23 12/28/23 12/27/23 Rx .COMPLEX #180 tabs budesonide-formoterol HFA 160 See Rx Instructions .Route 07/22/23 12/28/23 Unknown Rx mcg-4.5 mcg/actuation aerosol .COMPLEX PRN copd #10.2 grams inhaler (Symbicort) ipratropium 0.5 mg-albuterol 3 mg See Rx Instructions .Route 07/22/23 12/28/23 Unknown Rx (2.5 mg base)/3 mL nebulization .COMPLEX #180 mL soln rizatriptan 10 mg tablet (Maxalt) See Rx Instructions PO .COMPLEX 07/22/23 12/28/23 12/27/23 Rx #14 tabs albuterol sulfate 2.5 mg/3 mL 2.5 mg (3 mL) inhalation QID PRN 09/16/23 12/28/23 Unknown Rx (0.083 %) solution for nebulization shortness of breath or wheezing #180 mL azelastine 137 mcg (0.1 %) nasal See Rx Instructions .Route 09/16/23 12/28/23 Unknown Rx spray aerosol .COMPLEX #30 mL ipratropium bromide 17 See Rx Instructions .Route 09/16/23 12/28/23 Unknown Rx mcg/actuation HFA aerosol inhaler .COMPLEX #12.9 grams (Atrovent HFA) metoprolol succinate 25 mg 25 mg PO DAILY #30 tabs 09/16/23 12/28/23 12/27/23 Rx tablet,extended release 24 hr trazodone 150 mg tablet See Rx Instructions .Route 09/16/23 12/28/23 12/26/23 Rx .COMPLEX #90 tabs levothyroxine 88 mcg tablet 88 mcg PO DAILY #30 tabs 10/12/23 12/28/23 12/27/23 Rx fluconazole 150 mg tablet 150 mg PO DAILY #7 tabs 10/19/23 12/28/23 Unknown Rx aripiprazole 10 mg tablet (Abilify) 10 mg PO DAILY #30 tabs 11/11/23 12/28/23 12/27/23 Rx clonazepam 1 mg disintegrating 1 mg PO BID #60 tabs 11/11/23 12/28/23 12/27/23 Rx tablet promethazine 25 mg tablet See Rx Instructions .Route 11/11/23 12/28/23 Unknown Rx .COMPLEX #30 tabs tizanidine 4 mg tablet 8 mg (2 x 4 mg) PO Q8H PRN muscle 12/14/23 12/28/23 Unknown Rx spasticity #180 tabs furosemide 40 mg tablet See Rx Instructions .Route 12/23/23 12/28/23 12/27/23 Rx .COMPLEX #20 tabs hydrocortisone 1 % topical cream 1 applic topical DAILY PRN rash 12/23/23 12/28/23 Unknown Rx #28.4 grams potassium chloride 10 mEq 10 meq PO DAILY #20 tabs 12/23/23 12/28/23 12/27/23 Rx tablet,extended release tramadol 50 mg tablet 50 mg PO Q8H PRN pain #90 tabs 12/23/23 12/28/23 Unknown Rx Allergies Allergy/AdvReac Type Severity Reaction Status Date / Time nitrofurantoin Allergy Unknown Unknown Verified 12/23/23 10:39 [From Macrobid] red dye Allergy ALGY-Rash Verified 12/23/23 10:39 Sulfa (Sulfonamide Allergy upset Verified 12/23/23 10:39 Antibiotics) stomach Tetracyclines Allergy ADR-Dizzine Verified 12/23/23 10:39 ss Current Medications Generic Name Dose Route Start Last Admin Trade Name Freq PRN Reason Stop Dose Admin Albuterol/Ipratropium 3 ml 12/28/23 08:00 12/28/23 08:39 Ipratropium-Albuterol 3 Ml Neb NEBULIZER 3 ml TID.RESP NAV Administration Aripiprazole 10 mg 12/28/23 09:00 12/28/23 09:13 Aripiprazole 10 Mg Tablet PO 10 mg DAILY NAV Administration Budesonide 0.5 mg 12/28/23 08:00 12/28/23 08:39 Budesonide 0.5 Mg/2 Ml Neb INHALATION 0.5 mg BID.RESPIRATORY PRN Administration COPD Clonazepam 1 mg 12/28/23 09:00 12/28/23 09:15 Clonazepam 1 Mg Tablet PO 1 mg BID NAV Administration Duloxetine HCl 60 mg 12/28/23 09:00 12/28/23 09:14 Duloxetine 60 Mg Capsule PO 60 mg BID NAV Administration Levothyroxine Sodium 88 mcg 12/28/23 09:00 12/28/23 09:15 Levothyroxine 88 Mcg Tablet PO 88 mcg DAILY NAV Administration Metoprolol Succinate 25 mg 12/28/23 09:00 12/28/23 09:24 Metoprolol Succinate Er (24 Hr) 25 Mg Tablet PO Not Given DAILY NAV Morphine Sulfate 2 mg 12/28/23 05:59 12/28/23 09:26 Morphine 4 Mg/Ml Sdv 1 Ml IVP 2 mg Q4H PRN Administration SEVERE PAIN Pantoprazole Sodium 40 mg 12/28/23 09:00 12/28/23 09:[address] 40 Mg Tablet PO 40 mg DAILY NAV Administration Potassium Chloride 10 meq 12/28/23 09:00 12/28/23 09:13 Potassium Chloride Er 10 Meq Tablet PO 10 meq DAILY NAV Administration Topiramate 50 mg 12/28/23 09:00 12/28/23 09:15 Topiramate 25 Mg Tablet PO 50 mg BID NAV Administration PFSH Acute 2 PFSH: Medical History CKD (chronic kidney disease) stage 3, GFR 30-59 ml/min Syncope and collapse COPD (chronic obstructive pulmonary disease) Moderate pulmonary hypertension Lyme disease Fibromyalgia Scoliosis GERD without esophagitis Mandibular fracture Fractured sternum Environmental and seasonal allergies Vitamin B12 deficiency Migraines Hypothyroidism Anxiety and depression Surgical History Hx of knee surgery Hx of shoulder surgery Hx of hysterectomy Hx of appendectomy History of back surgery History of surgery on wrist Family History Father Diabetes Hypertension Sister Diabetes Hypertension Other Lung disease Social History Smoking and tobacco/nicotine status: never used tobacco/nicotine Second hand smoke exposure: No Alcohol intake: never Substance/Drug Use: never Adopted: No Caregiver/support person: No Lives independently: Yes Household members: none Housing: House Marital status: / Number of children: 2 Number of grandchildren: 3 Highest education level completed: Master's Degree service: No Current occupational status: retired Pets and animals: Yes Do you think of yourself as: Straight/Heterosexual Current gender identity: Female Vitals/I&O/Wt Last Vital Signs Temp 98.3 F 12/28/23 11:19 Pulse 101 H 12/28/23 11:19 Resp 22 H 12/28/23 11:19 BP 111/54 12/28/23 11:19 Pulse Ox 96 12/28/23 11:19 O2 Del Method Room Air 12/28/23 11:19 O2 Flow Rate 2 12/28/23 08:41 12/27/23 12/28/23 12/28/23 22:59 06:59 14:59 Output Total 1000 / 1000 700 / 700 Balance -1000 / -1000 -700 / -700 Weight last 48 hrs Weight 129 lb 1.6 oz Weight 129 lb 1.6 oz Weight 121 lb Physical Exam 2 Narrative: GENERAL: Patient is alert, awake and oriented x3. [] NECK: No jugular vein distension. [] HEENT: No cyanosis. No icterus. No pallor. [] HEART: Regular S1 and S2. No murmur, rub or gallop. [] LUNGS: Clear to auscultate bilaterally. [] CENTRAL NERVOUS SYSTEM: Grossly nonfocal. [] EXTREMITIES: Lower extremities with 1+ edema bilaterally. Data 12/29/23 04:22 12/29/23 04:22 A&P Assessment and plan (1) Non-ST elevated myocardial infarction: (2) Chest pain: (3) CHF exacerbation: (4) Anemia: Plan Patient has presented with typical chest pain symptoms and troponins have significantly increased from baseline of 154-300 at 6 hours. We will proceed with coronary angiogram with possible percutaneous coronary intervention tomorrow. Will monitor hemoglobin on anticoagulation. She has chronic anemia from renal disease. Denies any bleeding issues. Continue aspirin. Continue anticoagulation with Lovenox. N.p.o. past midnight. Echocardiogram ordered. Thank you for involving us with care of this patient. We will continue to follow. Please call with questions. Consult Attestations 2 Medical Necessity Statement: Care expected to cross 2 midnights. Coding Level of Care Code Acute Code for g Fwd Diagnoses Non-ST elevated myocardial infarction I21.4 Chest pain R07.9 CHF exacerbation I50.9 Anemia D64.9
--- NOTE | 2023-12-28 11:24 | PM.PN ---
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, she has been told that she has B12 deficiency so she has been taking B12, she also tells me that her legs have been swelling she has been on Lasix which has not been working so she has been on Bumex which has been helping more significantly, she does also report swollen glands in her neck which she has been worried about that seem hard, 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, her oldest son is a physician, Vitals/I&O/Wt Last Vital Signs Temp 98.3 F 12/28/23 11:19 Pulse 101 H 12/28/23 11:19 Resp 22 H 12/28/23 11:19 BP 111/54 12/28/23 11:19 Pulse Ox 96 12/28/23 11:19 O2 Del Method Room Air 12/28/23 11:19 O2 Flow Rate 2 12/28/23 08:41 12/27/23 12/28/23 12/28/23 22:59 06:59 14:59 Output Total 1000 / 1000 700 / 700 Balance -1000 / -1000 -700 / -700 Weight last 48 hrs Weight 58.559 kg Weight 58.559 kg Weight 54.885 kg Physical Exam Const: COMMON NORMALS: no acute distress and patient oriented x3 Neck/C-Spine: OTHER: Cervical lymphadenopathy Resp: COMMON NORMALS: normal respiratory effort, No retractions, No use of accessory muscles and clear to auscultation bilaterally AUSCULTATION: clear to auscultation bilaterally Cardio: COMMON NORMALS: regular rate, regular rhythm, S1 normal heart sound present and S2 normal heart sound present RATE: regular rate RHYTHM: regular rhythm HEART SOUNDS: S1 normal heart sound present and S2 normal heart sound present GI: COMMON NORMALS: Normal to inspection, nondistended, normoactive bowel sounds present and non-tender Extremity: NARRATIVE EXTREMITY EXAM: 1+ nonpitting edema Neuro: COMMON NORMALS: patient oriented x3 Psych: COMMON NORMALS: mental status grossly normal Data 12/28/23 03:40 12/28/23 03:40 A&P Assessment and plan (1) Non-ST elevated myocardial infarction: (2) Chest pain: (3) Edema: Qualifiers: Edema type: unspecified Qualified Code(s): R60.9 - Edema, unspecified (4) CKD (chronic kidney disease) stage 3, GFR 30-59 ml/min: (5) CHF exacerbation: (6) Anemia: (7) Weight loss: Plan NSTEMI, with chest pain Plan -Serial EKGs, serial troponins, telemetry monitoring -Cardiac echo -Has been loaded with aspirin and Plavix -Continue aspirin 81, continue metoprolol -On therapeutic Lovenox, monitor hemoglobin closely -Cardiology consulted for cardiac catheterization likely tomorrow, n.p.o. over midnight CHF exacerbation with bilateral pulm edema with elevated BNP -Cardiac echo -Has received Bumex -Hold further dosing -Fluid restrictions at 1000 cc -Monitor clinical status Anemia -With history of B12 deficiency, history of gastric bypass for gastric ulcers -Denies bloody or black stools -Monitor hemoglobin closely -Iron studies, ferritin, B12, folic acid, Hemoccult stool -Based on clinical progress will consider further imaging Weight loss -Complains of weight loss over 100 pounds has cervical lymphadenopathy -Multiple cervical lymph nodes, several are quite hard, less mobile -Will consider CT chest abdomen pelvis patient clinical progress Anxiety and depression -Reports severe stress of her son's predicament -Possibly stress-induced cardiomyopathy? -Will consider antidepressants based on clinical progress SARAH, creatinine 1.1, monitor Attestations Medical Necessity Statement*: Patient requires hospitalization, inpatient, greater than 2 midnights, for CHF exacerbation, NSTEMI, chest pain, anemia, Diagnoses Non-ST elevated myocardial infarction I21.4 Chest pain R07.9 Edema, unspecified type R60.9 Edema type: unspecified CKD (chronic kidney disease) stage 3, GFR 30-59 ml/min N18.30 CHF exacerbation I50.9 Anemia D64.9 Weight loss R63.4
--- NOTE | 2023-12-28 11:39 | PC.NURSE ---
Provider is notified that patient refused her beclofen this morning at 0900. She said that it makes her jerky .
[2023-12-28] MEDS: pantoprazole 40 mg SDV IVP ×2 (12:16→22:36)
[2023-12-28] MEDS: sucralfate 1 gm/10 mL Oral Liq UDC PO ×3 (12:16→23:52)
[2023-12-28 12:25] LABS: Basophils % 0.6 %; Eosinophils # 0.1 10^3/uL (0.0-0.8); Eosinophils % 1.5 %; Hematocrit 30.4 % (36-47); Lymphocytes # 1.7 10^3/uL (0.8-4.8); Mean Corpuscular HGB Conc 29.3 g/dL (30-55); Mean Corpuscular Hemoglobin 24.4 pg (27-33); Mean Corpuscular Volume 83.3 fl (85-98); Mean Platelet Volume 10.5 fL (7.4-10.4); Monocytes # 0.7 10^3/uL (0.2-0.9); Monocytes % 10.8 %; Neutrophils # 3.63 10^3/uL (1.8-7.7); Neutrophils % 58.8 %; Nucleated Red Blood Cells % 0 %; Platelet Count 323 10^3/cmm (157-399); Red Blood Count 3.65 10^6/uL (3.85-5.65); Red Cell Distribution Width 15.9 % (12.1-15.1); White Blood Count 6.18 10^3/uL (3.29-11.43)
[2023-12-28 12:28] LABS: Erythrocyte Sedimentation Rate 12 mm/hr (0-15)
[2023-12-28 12:38] LABS: D Dimer 0.53 ug/mLFEU (0-0.59)
[2023-12-28 12:44] LABS: Ferritin 11 ng/mL (15-150); Iron 23 ug/dL (37-145)
[2023-12-28 12:59] LABS: Procalcitonin 0.09 ng/mL (0-0.5); Vitamin B12 717 pg/mL (232-1245)
--- NOTE | 2023-12-28 13:16 | CTR_ITS ---
PROCEDURE INFORMATION: Exam: CT Chest With Contrast; Diagnostic Exam date and time: 12/28/2023 2:54 PM Age: 68 years old Clinical indication: Other: Anemia, weight loss; Additional info: Severe iron defeciency, anemia, weight loss, cervical lymph TECHNIQUE: Imaging protocol: Diagnostic computed tomography of the chest with contrast. Radiation optimization: All CT scans at this facility use at least one of these dose optimization techniques: automated exposure control; mA and/or kV adjustment per patient size (includes targeted exams where dose is matched to clinical indication); or iterative reconstruction. Contrast material: OMNI 350; Contrast volume: 100 ml; Contrast route: INTRAVENOUS (IV); COMPARISON: CT chest [facility] [id number] 01/11/2022 3:24 PM RADIATION DOSE METRICS: Total DLP (mGy-cm): 585 FINDINGS: Lungs: Mild diffuse centrilobular emphysema. Calcified granuloma in the right lung. Pleural spaces: Trace right pleural effusion. Heart: Unremarkable. No cardiomegaly. No pericardial effusion. Lymph nodes: Unremarkable. No enlarged lymph nodes. Vasculature: Unremarkable. No aortic aneurysm. Bones/joints: Unremarkable. No acute fracture. Soft tissues: Unremarkable. COMMENTS: The presence of pulmonary emphysema on CT is an independent risk factor for lung cancer. In the absence of a history or active diagnosis of lung cancer, it is recommended that this patient with emphysema be evaluated for enrollment in a low dose CT lung cancer screening program. PROCEDURE INFORMATION: Exam: CT Abdomen And Pelvis With Contrast Exam date and time: 12/28/2023 2:54 PM Age: 68 years old Clinical indication: Other: Anemia, weight loss; Additional info: Severe iron defeciency, anemia, weight loss, cervical lymph TECHNIQUE: Imaging protocol: Computed tomography of the abdomen and pelvis with contrast. Radiation optimization: All CT scans at this facility use at least one of these dose optimization techniques: automated exposure control; mA and/or kV adjustment per patient size (includes targeted exams where dose is matched to clinical indication); or iterative reconstruction. Contrast material: OMNI 350; Contrast volume: 100 ml; Contrast route: INTRAVENOUS (IV); COMPARISON: CT chest [facility] [id number] 01/11/2022 3:24 PM RADIATION DOSE METRICS: Total DLP (mGy-cm): 585 FINDINGS: Liver: Normal. No mass. Gallbladder and bile ducts: Cholecystectomy. Evidence of prior bowel surgery. 10 mm distal common duct probably due to the surgery. Pancreas: Normal. No ductal dilation. Spleen: Normal. No splenomegaly. Adrenal glands: Normal. No mass. Kidneys and ureters: Normal. No hydronephrosis. Stomach and bowel: See Gallbladder and bile ducts finding. Appendix: No evidence of appendicitis. Intraperitoneal space: See Soft tissues finding. Vasculature: Unremarkable. No abdominal aortic aneurysm. Lymph nodes: Unremarkable. No enlarged lymph nodes. Urinary bladder: Unremarkable as visualized. Reproductive: Uterus is not seen. Bones/joints: Degenerative changes of the thoracic spine with a prominent left scoliosis. Soft tissues: Extensive calcified gluteal granuloma. Prior surgery in the upper abdomen. CT/CT chest abdpel w/*[id number] IMPRESSION: No acute findings. IMPRESSION: No acute findings.
[2023-12-28 13:39] LABS: Folate Level 18.9 ng/mL (4.8-37.3)
[2023-12-28] MEDS: iohexol 350 mg/mL 500 mL Btl (per mL) IV (15:07)
[2023-12-28] MEDS: ondansetron 4 MG Tablet PO (15:34)
[2023-12-28 20:54] LABS: Glucose Point of Care 94 mg/dL (70-110)
[2023-12-28] MEDS: metoclopramide 5 mg/mL SDV 2 mL IVP (22:33)
[2023-12-28] MEDS: trazodone 150 mg Tablet PO (23:52)
[2023-12-29] VITALS (21 sets, daily range): BP systolic 100–125; BP diastolic 55–73; PULSE 92–109; RESP 14–27; TEMP 36.4–37.3; O2SAT 92–97
[2023-12-29] MEDS: ondansetron 4 MG Tablet PO ×2 (00:07→21:32)
[2023-12-29] MEDS: morphine 4 mg/mL SDV 1 mL 2 MG IVP ×3 (00:07→22:10)
[2023-12-29 05:15] LABS: Basophils % 0.4 %; Eosinophils # 0.2 10^3/uL (0.0-0.8); Eosinophils % 2.8 %; Hematocrit 29.9 % (36-47); Lymphocytes # 1.9 10^3/uL (0.8-4.8); Lymphocytes % 27.8 %; Mean Corpuscular HGB Conc 29.4 g/dL (30-55); Mean Corpuscular Hemoglobin 24.2 pg (27-33); Mean Corpuscular Volume 82.4 fl (85-98); Mean Platelet Volume 11.1 fL (7.4-10.4); Monocytes # 0.5 10^3/uL (0.2-0.9); Neutrophils # 4.09 10^3/uL (1.8-7.7); Neutrophils % 60.6 %; Nucleated Red Blood Cells % 0 %; Platelet Count 341 10^3/cmm (157-399); Red Blood Count 3.63 10^6/uL (3.85-5.65); White Blood Count 6.76 10^3/uL (3.29-11.43)
[2023-12-29] MEDS: sucralfate 1 gm/10 mL Oral Liq UDC PO ×4 (05:33→23:29)
[2023-12-29 05:35] LABS: Alanine Aminotransferase 13 U/L (0-33); Albumin Level 3.4 g/dL (3.5-5.2); Alkaline Phosphatase 101 U/L (35-105); Anion Gap 15.1 (5-19); Aspartate Amino Transferase 24 U/L (0-32); Blood Urea Nitrogen 28 mg/dL (8-23); Calcium 8.5 mg/dL (8.5-10.5); Carbon Dioxide 26 mmol/L (22-29); Chloride 104 mmol/L (98-107); Creatinine Clr Calc Pharmacy 40.8509; Globulin 2.8 g/dL (1.3-4.6); Glomerular Filtration Rate 49.2 mL/min (90-130); Glucose 79 mg/dL (65-115); Magnesium 2.3 mg/dL (1.7-2.3); Osmolality Calculated 296 mOsm/kg (285-295); Phosphorus 3.3 mg/dL (2.5-4.5); Potassium 4.1 mmol/L (3.5-5.1); Sodium 141 mmol/L (136-145); Total Bilirubin 0.2 mg/dL (0.15-1.2); Total Protein 6.2 g/dL (6.6-8.7)
[2023-12-29 05:43] LABS: NT Pro B Type Natriuretic Pept 9560 pg/mL (0-125); Procalcitonin 0.07 ng/mL (0-0.5)
--- NOTE | 2023-12-29 07:08 | PC.NURSE ---
Spoke with regarding patients creatinine this morning. Obtained orders for cardiac cath this morning. Asked if he wanted 8am lovenox 60mg held for procedure, said to hold the lovenox.
[2023-12-29] MEDS: aspirin 325 mg Tablet PO (07:39)
[2023-12-29] MEDS: diphenhydrAMINE 12.5 mg/5 mL UDC 10 mL 50 MG PO (07:40)
[2023-12-29] MEDS: sodium chloride 0.9% 1,000 ML 50 ML IV (07:40)
--- NOTE | 2023-12-29 08:05 | XACV_ITS ---
Exam Room: [facility] Ht: 157 cm Wt: 59 kg BSA: 1.61 m2 Gender: Female : 1955 Any Known Allergies: Other Exam Priority: Routine Procedure(s): Procedure Description: Diagnostic procedure Procedure Description: PCI procedure Procedure Description: Drug Eluting Coronary Stent Procedure Description: PTCA Procedure Description: Miscellaneous Procedure Description: ACT Procedure Description: Coronary Angiography Diagnostic Cath Status: Urgent Diagnostic Findings * Circumflex has mid vessel 40-50%. * Right Coronary Artery has no significant disease. * Proximal to Mid Left Anterior Descending: critical 99% stenosis. Diagonal artery coming off of it is small to medium sized and has ostial 80 to 90% stenosis.. * Left Main has no disease. * Coronary angiography shows right dominance. PCI Status: Urgent PCI Indication: NSTE - ACS Interventional Findings * PROCEDURE DETAIL:. * Procedure detail: We engaged the left main artery with XB 3.0 guide catheter. IV heparin was administered to maintain anticoagulation. 0.014 run-through guidewire was used to cross the critical proximal to mid LAD stenosis. We predilated the stenosis with 2.5 x 12 mm semicompliant balloon. This was followed by placement of 3.0 x 26 mm resolute Daryn drug-eluting stent. With stent placement LAD had excellent LIGIA-3 flow with no residual stenosis. However small to medium sized sidebranch i.e first diagonal artery had plaque shift and got occluded. We used run-through wire to cross through the stent struts into the jailed diagonal artery. We dilated the artery with 2.0 x 12 mm semicompliant balloon. This restored the flow. There was residual stenosis of the ostial diagonal artery however given smaller size of the vessel, we decided to treat it medically. Guidewire and guide catheter were removed. Patient left the Site Coordinator in a stable condition.. * 1st Diagonal: 90% stenosis treated with a AB MINI TREK 2.00X12 RX BALLOON. 0% residual stenosis, LIGIA: 3 flow. * Mid Left Anterior Descendin% stenosis treated with a AB TREK 2.50X12 RX BALLOON, and MDT R DARYN 3.0X26 ALBINA. 0% residual stenosis, LIGIA: 3 flow. Conclusions 1. Critical 99% stenosis of proximal to mid LAD s/p successful revascularization with 1 stent. 2. Balloon angioplasty of jailed 3. diagonal artery 4. resulting in revascularization.. 5. Mid Left Anterior Descending was treated with a Balloon, and Drug Eluting Stent. 6. 1st Diagonal was treated with a Balloon. Recommendations * Dual antiplatelet therapy with aspirin and plavix for at least 1 year. * High intensity statin therapy. * Outpatient cardiology follow up in 2 weeks. Interventional RX Recommendation: PCI w/o planned CABG Diagnostic RX Recommendation: PCI w/o planned CABG Anticoagulation: Heparin Pressures Phase:Rest AO : 90 / 63 ( 77 ) @ 8:46:00 AM 122 / 61 ( 88 ) @ 9:04:00 AM 108 / 70 ( 89 ) @ 9:09:00 AM 113 / 71 ( 91 ) @ 9:16:00 AM 105 / 73 ( 89 ) @ 9:23:00 AM Clinical Evaluation EBL: 5mL-10mL Procedural Details Procedure Consent Obtained. Pre-Procedure Time Out. Identified patient by full name and date of as verbalized by the patient/guarantor. Does the consent match the physician's order: Yes. Accurate & Complete Informed Consent: Yes. Inpatient/Outpatient History & Physical on Chart: Yes. If H&P is completed, is and addenduem needed: No. Visualize and Verify Site with Patient/Guarantor: N/A. Relevant Radiology Images available: Yes. The risks, benefits, and alternatives of sedation and/or procedure were discussed by physician. The patient agrees to continue. Procedure started. [facility] Clinical Fraility Score: 3: Managing Well. Site Coordinator Indications: ACS > 24 hours/NSTEMI. Chest Pain Symptom Assessment: Typical Angina Symptoms. Cardiovascular Instability: No, if yes, Ventricular Arrhythmias. Correct patient, site and procedure confirmed by cath team. PERRLA. Strong, equal hand meteorological technician bilaterally. Lungs clear x 5 lobes. IV Fluids: 0.9% NaCl at KVO. 50 mL infused prior to laborer bituminous paving. Pre Procedural Pulses: bilateral dorsalis pedis was Doppled. Pre Procedural Pulses: bilateral posterior tibial was Doppled. Pre Procedural Pulses: bilateral radial was 3+. Oxygen started at 2liters/min via nasal canula. right groin was prepped with chloroprep then draped in the usual sterile fashion. right radial was prepped with chloroprep then draped in the usual sterile fashion. Physician notified. A 20 gauge IV was started in the left forearm using aseptic technique. Baseline sample Acquired. HR: 103 BPM. Patient's family unavailable. Equipment: 6F - Radial. Cardiac Cath Pack. ACIST Manifold Kit Model BT 2000. Heparinized Saline (2 units/mL), 1000 mL bag. Physician arrived. Physician scrubbed in. Immediate Pre-Procedure Time Out. Correct Patient: Yes; Correct Procedure: Yes; Correct Site: Yes; Correct Patient Position: Yes; Correct Supplies: Yes; Dried Flammable Prep: Yes; Blood Products Available: N/A;. Lidocaine 1% infiltrated to the right radial. Arterial access obtained. Lidocaine 1% infiltrated to the right radial. A 5 guamanian TIG catheter in over the exchange J wire. Multiple views taken of right coronary artery. Catheter redirected to the LCA. Multiple views taken of left coronary artery. Catheter removed over the exchange J wire. add inventory: endoflator, co-marine pilot. Will move to femoral access due to radial spasm. A TR Band was successful obtaining hemostatsis at the Right Radial artery insertion site. Lidocaine 1% infiltrated to the right groin. Arterial access obtained with micropuncture set. Unable to advance micropuncture needle. Wire and needle out. Dr. Cortes holding manual pressure. Arterial access obtained with micropuncture set. 6 guamanian XB 3 guide catheter was inserted over the exchange J wire. Runthrough guidewire was advanced through the guide catheter to lesion in the mid LAD. Inflation number : 1 A AB TREK 2.50X12 RX BALLOON was prepped and advanced across the Mid LAD , then inflated to 8 ILAN for 0:06 seconds. Inflation number: 2 The AB TREK 2.50X12 RX BALLOON was reinflated across the Mid LAD, to 8 ILAN for 0:07 seconds. Inflation number: 3 The AB TREK 2.50X12 RX BALLOON was reinflated across the Mid LAD, to 10 ILAN for 0:14 seconds. Balloon out. Results checked. Inflation Number : 4 A MDT R DARYN 3.0X26 ALBINA -Lot Number# [id number] was prepped and advanced across the Mid LAD. The stent was deployed at 12 ILAN for 0:15 seconds. Exp . Stent balloon out over wire. Results checked. A 2nd Runthrough guidewire was advanced through the guide catheter to lesion in the diaganol. 1st Runthrough guidewire out. Inflation number : 1 A AB MINI TREK 2.00X12 RX BALLOON was prepped and advanced across the 1st Diag , then inflated to 8 ILAN for 0:11 seconds. Inflation number: 2 The AB MINI TREK 2.00X12 RX BALLOON was reinflated across the 1st Diag, to 8 ILAN for 0:10 seconds. Inflation number: 3 The AB MINI TREK 2.00X12 RX BALLOON was reinflated across the 1st Diag, to 10 ILAN for 0:11 seconds. Inflation number: 4 The AB MINI TREK 2.00X12 RX BALLOON was reinflated across the 1st Diag, to 10 ILAN for 0:08 seconds. Inflation number: 5 The AB MINI TREK 2.00X12 RX BALLOON was reinflated across the 1st Diag, to 12 ILAN for 0:07 seconds. Balloon out. Wire out. ACT drawn. Results out of range high. Will redraw. Results checked. Guide catheter out over the exchange J wire. A Right femoral angiogram was performed to determine safe placement of closure device. A Suture was successful obtaining hemostatsis at the Right Femoral artery insertion site. Sheath(s) sutured into position with 2-0 silk and sterile 4x4's and Op-site applied over the site. No oozing or signs and symptoms of hematoma noted. Arterial sheath flushed and connected to tranducer and pressure bag with heparinized saline. ACT drawn. Results 214 seconds. Therapeutic limits - pre-heparin administration 90-150 seconds and monitoring heparin during a vascular procedure >250 seconds. Post Procedure: Pulses reassessed and unchanged. PERRLA. Strong, equal hand meteorological technician bilaterally. No VTE prophylaxis required. PCI Indication: NSTE. Post-op diagnosis: PCI of the mid LAD and PTCA of the diagonal. Complications: none. Estimated blood loss: 5mL-10mL. Responsiveness - Normal response to verbal stimuli; alert and oriented, PERRLA. Airway - Unaffected, no intervention required; spontaneous ventilation. Circulation: W/N/L, pulses unchanged. Nausea/Vomiting: No. Total IV fluids: 263 mL. ACT drawn. Results 215 seconds. Therapeutic limits - pre-heparin administration 90-150 seconds and monitoring heparin during a vascular procedure >250 seconds. Medication's Wasted: Nitro = 49.7 mg. Medication's Wasted: Heparin = 2000 units. Procedure completed. Vital chart was stopped. Access Site Site: Right Radial artery Sheath Size: 6 Fr Hemostasis Method: TR Band Hemostasis Success: Successful Site: Right Femoral artery Sheath Size: 6 Fr Hemostasis Method: Suture Hemostasis Success: Successful Procedure Medications Start: 8:41 AM Stop: 8:41 AM Medication: Versed Amount: 1 mg Route: I.V. Start: 8:44 AM Stop: 8:44 AM Medication: 0.9% Saline Amount: 250 ml Route: I.V. bolus Start: 8:45 AM Stop: 8:45 AM Medication: Nitrogylcerin Amount: 100 mcg Route: I.A. Start: 8:46 AM Stop: 8:46 AM Medication: Heparin Amount: 5000 units Route: I.V. Start: 8:49 AM Stop: 8:49 AM Medication: Nitrogylcerin Amount: 200 mcg Route: I.A. Start: 8:56 AM Stop: 8:56 AM Medication: 0.9% Saline Amount: 100 ml/hr Route: I.V. drip Start: 8:57 AM Stop: 8:57 AM Medication: Versed Amount: 0.5 mg Route: I.V. Start: 8:57 AM Stop: 8:57 AM Medication: Fentanyl Amount: 12.5 mcg Route: I.V. Start: 9:05 AM Stop: 9:05 AM Medication: Heparin Amount: 1000 units Route: I.V. Start: 9:10 AM Stop: 9:10 AM Medication: Fentanyl Amount: 25 mcg Route: I.V. Start: 9:15 AM Stop: 9:15 AM Medication: Versed Amount: 0.5 mg Route: I.V. Start: 9:15 AM Stop: 9:15 AM Medication: Fentanyl Amount: 12.5 mcg Route: I.V. Start: 9:22 AM Stop: 9:22 AM Medication: Fentanyl Amount: 25 mcg Route: I.V. Start: 9:30 AM Stop: 9:30 AM Medication: Nitrogylcerin Amount: 10 mcg/min Route: I.V. drip Start: 9:34 AM Stop: 9:34 AM Medication: Plavix Amount: 300 mg Route: P.O. Start: 9:42 AM Stop: 9:42 AM Medication: Heparin Amount: 1000 units Route: I.V. I, the attending physician, have reviewed and verified all procedure medications. Yes, all medications given per verbal order History/Risk Factors Hypertension: No Dyslipidemia: No Peripheral Arterial Disease (PAD): No Myocardial Infarction (MA): No Obesity: No Renal Disease: No Tobacco Use: Never Prior Interventions PCI: No CABG: No Valve Surgery: No Report Signatures Finalized by Tyron Cortes MD on 01/02/2024 12:19 PM
--- NOTE | 2023-12-29 08:34 | W.PM.OPSUD ---
Surgery/Procedure H&P Update DATE OF PROCEDURE: December 29, 2023 DATE H&P PERFORMED: 12/28/23 H&P UPDATE INFORMATION: I have reviewed H&P completed within last 30 days, I have examined patient prior to procedure and No changes to prior documentation PREOP DIAGNOSIS: NSTEMI PRIMARY INDICATION FOR PROCEDURE: NSTEMI PLANNED PROCEDURE: Left heart cath with possible percutaneous coronary intervention PATIENT REASSESSED PRIOR TO SEDATION, WITH NO CHANGE NOTED: Yes PHYSICAL EXAM: alert, oriented x 3, clear to auscultation bilaterally and regular rate & rhythm AIRWAY EVAL/ANESTHESIA PLAN: normal airway, ASA III, Local Anesthesia, Risks, benefits & alternatives of sedation and/or procedure discussed and Patient agrees to continue as planned ADDITIONAL INFORMATION: Moderate sedation
--- NOTE | 2023-12-29 08:35 | P.PN_ITS ---
Subjective 2 Subjective: Patient had coronary angiogram that demonstrated 99% stenosis of proximal to mid LAD. She underwent successful revascularization with 1 stent. Had plaque shift into small to medium sized diagonal artery. Diagonal artery was ballooned and flow was restored. She had minimal chest pain postprocedure. Vitals/I&O/Wt Last Vital Signs Temp 98.5 F 12/29/23 07:33 Pulse 109 H 12/29/23 07:33 Resp 18 12/29/23 07:33 BP 105/55 12/29/23 07:33 Pulse Ox 94 12/29/23 07:33 O2 Del Method Room Air 12/29/23 04:00 O2 Flow Rate 2 12/28/23 08:41 12/28/23 12/29/23 12/29/23 22:59 06:59 14:59 Intake Total 0 / 240 Output Total 800 / 1500 0 / 1500 700 / 700 Balance -800 / -1260 0 / -1260 -700 / -700 Weight last 48 hrs Weight 129 lb 12.8 oz Weight 129 lb 12.8 oz Weight 129 lb 1.6 oz Weight 129 lb 1.6 oz Weight 121 lb Physical Exam 2 Narrative: GENERAL: Patient is alert, awake and oriented x3. [] NECK: No jugular vein distension. [] HEENT: No cyanosis. No icterus. No pallor. [] HEART: Regular S1 and S2. No murmur, rub or gallop. [] LUNGS: Clear to auscultate bilaterally. [] CENTRAL NERVOUS SYSTEM: Grossly nonfocal. [] EXTREMITIES: Lower extremities with 1+ edema bilaterally. Data 12/29/23 04:22 12/29/23 04:22 A&P Assessment and plan (1) Non-ST elevated myocardial infarction: (2) Chest pain: (3) CHF exacerbation: (4) Anemia: Plan Patient underwent successful revascularization of proximal to mid LAD with 1 stent. Plaque shift into diagonal artery occluded flow briefly however balloon angioplasty restored it Dual antiplatelet therapy with aspirin and plavix for atleast 1 year High intensity statin therapy ECHO shows normal LV systolic function Thank you for involving us with care of this patient. We will continue to follow. Please call with questions. Attestations 2 Medical Necessity Statement*: Care expected to cross 2 midnights Coding Level of Care Code Acute Code for [facility] Diagnoses Non-ST elevated myocardial infarction I21.4 Chest pain R07.9 CHF exacerbation I50.9 Anemia D64.9
--- NOTE | 2023-12-29 09:01 | PC.NURSE ---
Patient left floor to laboratory apparatus glass grinder at 0810.
--- NOTE | 2023-12-29 09:42 | PC.CHAP ---
Pastoral Care Encounter/Spiritual Assessment Type of Contact [] Declined product transfer pumper visit [] Patient/Family/Request visit [] Outpatient visit [] Follow-up visit [] Physician referral [] Code/Alert [] Routine visit [] Staff referral [] Actively dying [] Patient sleeping [] Family support [] [x] Out of room [] Palliative care [] [] Receiving care in room [] Pre-surgical visit [] Trauma [] Long length of stay [] ICU visit [] Other: Relational/Emotional Strength [] Patient feels connected with others/family/visitors/staff [] Distress [] Loneliness/isolation [] Abandonment Spirituality of Patient [] Person of Anjali [] Attends Hindu of their Anjali [] Believes in Prayer [] Reads Bible or Yazidi materials [] There are Spiritual issues to be addressed Store Custodian Interventions [] Prayer [] Active listening [] Non-anxious presence [] Spiritual/emotional support [] Crisis/trauma care [] Spiritual counseling [] Bereavement support [] Provided bereavement packet [] Provided Bible/devotional materials [] Provided toy/stuffed animal, coloring book to patient or family member [] Provided Communion [] Anointing/[place] [] Salvation [] Completed spiritual assessment [] Other: Impact on Illness or Injury [] Angry [] Fearful [] Anxious [] Often cries [] Exhaustion [] Unable to work [] Unable to attend church [] Unable to walk/stand [] Unable to read [] Unable to drive [] Unable to eat/drink [] Unable to sleep [] Unable to be with family [] Patient intubated [] Other: Summary Time spent with patient
--- NOTE | 2023-12-29 09:44 | PC.NURSE ---
Recovery Note Pt arrived to CPRU 3 post cath. Pt does complain of chest pain /, Dr. Cortes aware and ordered nitroglycerin. Nitroglycerin gtt running at 10mcg/min. Pt placed on bedside hospital monitor. TR band to right wrist, site asymptomatic. Right groin has sutured in sheath to pressure bag. No signs of hematoma, site asymptomatic.
[2023-12-29] MEDS: duloxetine 60 mg Capsule PO ×2 (10:33→17:38)
[2023-12-29] MEDS: CLONazepam 1 mg Tablet PO ×2 (10:33→17:38)
[2023-12-29] MEDS: topiramate 25 mg Tablet 50 MG PO ×2 (10:34→17:38)
[2023-12-29] MEDS: metoprolol succinate ER (24 HR) 25 mg Tablet PO (10:35)
[2023-12-29] MEDS: potassium chloride ER 10 mEq Tablet PO (10:35)
[2023-12-29] MEDS: levothyroxine 88 mcg Tablet PO (10:36)
[2023-12-29] MEDS: ARIPiprazole 10 mg Tablet PO (10:36)
--- NOTE | 2023-12-29 10:48 | PC.NURSE ---
Patient returns to CSU from coreroom foundry laborer with a right radial TR-band and a right groin sheath. No hematomas noted. returned at 1030.
--- NOTE | 2023-12-29 11:06 | PC.NURSE ---
Patient returned from label coder with NS at 50ml/hr and a Nitro drip at 10 mcg/min or 3ml/hr.
[2023-12-29] MEDS: pantoprazole 40 mg SDV IVP ×2 (11:46→23:29)
[2023-12-29 13:34] LABS: Partial Thromboplastin Time 49.6 SECONDS (23.9-36.7)
--- NOTE | 2023-12-29 14:00 | P.PN_ITS ---
Subjective 2 Subjective: PatientPatient was seen this morning, she was found to have 99% proximal to mid LAD stenosis with 1 stent placed, currently on a nitroglycerin drip, currently complaining of minimal chest pain, alert oriented x 3, denies any shortness of breath no lightheadedness no dizziness Vitals/I&O/Wt Last Vital Signs Temp 97.5 F L 12/29/23 11:25 Pulse 96 12/29/23 12:00 Resp 23 H 12/29/23 12:00 BP 110/62 12/29/23 12:00 Pulse Ox 97 12/29/23 12:00 O2 Del Method Nasal Cannula 12/29/23 12:00 O2 Flow Rate 1 12/29/23 12:00 12/28/23 12/29/23 12/29/23 22:59 06:59 14:59 Intake Total 0 / 240 120 / 120 Output Total 800 / 1500 0 / 1500 700 / 700 Balance -800 / -1260 0 / -1260 -580 / -580 Weight last 48 hrs Weight 58.876 kg Weight 58.876 kg Weight 58.559 kg Weight 58.559 kg Weight 54.885 kg Physical Exam 2 Const: COMMON NORMALS: no acute distress and patient oriented x3 Resp: COMMON NORMALS: normal respiratory effort, No retractions, No use of accessory muscles and clear to auscultation bilaterally AUSCULTATION: clear to auscultation bilaterally Cardio: COMMON NORMALS: regular rate, regular rhythm, S1 normal heart sound present and S2 normal heart sound present RATE: regular rate RHYTHM: r egular rhythm HEART SOUNDS: S1 normal heart sound present and S2 normal heart sound present GI: COMMON NORMALS: Normal to inspection, nondistended, normoactive bowel sounds present and non-tender Extremity: COMMON NORMALS: no pedal edema Neuro: COMMON NORMALS: patient oriented x3 Psych: COMMON NORMALS: mental status grossly normal Data 12/29/23 04:22 12/29/23 04:22 A&P Assessment and plan (1) Non-ST elevated myocardial infarction: (2) Chest pain: (3) Edema: Qualifiers: Edema type: unspecified Qualified Code(s): R60.9 - Edema, unspecified (4) CKD (chronic kidney disease) stage 3, GFR 30-59 ml/min: (5) CHF exacerbation: (6) Anemia: (7) Weight loss: Plan NSTEMI, with chest pain Plan -Serial EKGs, serial troponins, telemetry monitoring -Cardiac echo CONCLUSIONS LV systolic function is normal with EF of 55 to 60%. Mild mitral regurgitation. Trace tricuspid regurgitation. Compared to prior echocardiogram from 2021, no significant changes are seen - aspirin and Plavix - continue metoprolol -Cardiology consulted for cardiac catheterization, have 99% proximal to mid LAD stenosis with 1 stent placed, currently on a nitroglycerin drip CHF exacerbation with bilateral pulm edema with elevated BNP -Cardiac echo -Has received Bumex -Hold further dosing -Fluid restrictions at 1000 cc -Monitor clinical status Anemia, evidence of iron deficiency -With history of B12 deficiency, history of gastric bypass for gastric ulcers -Denies bloody or black stools -Monitor hemoglobin closely -monitor cbc -protonix, carafate -Based on clinical progress will consider further imaging Weight loss -Complains of weight loss over 100 pounds has cervical lymphadenopathy -Multiple cervical lymph nodes, several are quite hard, less mobile, needs outpatient follow up Anxiety and depression -Reports severe stress of her son's predicament -Will consider antidepressants based on clinical progress SARAH, creatinine 1.1, monitor plan for today monitor, wean nitro drip, consider diureses, monitor for chest pain Attestations 2 Medical Necessity Statement*: patient requires hospitalization for cad s/p stent placement Diagnoses Non-ST elevated myocardial infarction I21.4 Chest pain R07.9 Edema, unspecified type R60.9 Edema type: unspecified CKD (chronic kidney disease) stage 3, GFR 30-59 ml/min N18.30 CHF exacerbation I50.9 Anemia D64.9 Weight loss R63.4
[2023-12-29] MEDS: metoclopramide 5 mg/mL SDV 2 mL IVP (14:25)
--- NOTE | 2023-12-29 15:32 | PC.NURSE ---
Patient presented to CSU from laborer road with a right radial TR-band and a right groining sheath. The TR-band air is removed slowly 2ml's at a time. TR-band is removed at 1500. No hematoma is noted. A dressing of 2 x 2 and tegaderm is applied. Sheath is removed at 1435. Hemostasis is obtained at 1440. Manual pressure is held x 20 minutes. A dressing of 4 x 4 and tegaderm is applied. Vitals were stable throughout. Patient tolerated well. Patient is reminded to not move her right leg or sit up until 2100. Patient states understanding.
--- NOTE | 2023-12-29 17:33 | PC.NURSE ---
Dr Cortes ordered to stop her NS and nitro drip.
[2023-12-29 19:15] LABS: Basophils % 0.6 %; Eosinophils # 0.2 10^3/uL (0.0-0.8); Eosinophils % 2.8 %; Hematocrit 29.3 % (36-47); Lymphocytes # 1.3 10^3/uL (0.8-4.8); Lymphocytes % 19.3 %; Mean Corpuscular Hemoglobin 24.4 pg (27-33); Mean Platelet Volume 10.9 fL (7.4-10.4); Monocytes # 0.7 10^3/uL (0.2-0.9); Monocytes % 10.8 %; Neutrophils # 4.52 10^3/uL (1.8-7.7); Neutrophils % 66.1 %; Nucleated Red Blood Cells % 0 %; Platelet Count 335 10^3/cmm (157-399); Red Blood Count 3.49 10^6/uL (3.85-5.65); Red Cell Distribution Width 16.2 % (12.1-15.1); White Blood Count 6.84 10^3/uL (3.29-11.43)
[2023-12-29] MEDS: ipratropium-albuterol 3 mL Neb NEBULIZER (19:54)
[2023-12-29] MEDS: trazodone 150 mg Tablet PO (21:32)
--- NOTE | 2023-12-29 21:38 | ECG_ITS ---
[facility] Test Date: 2023-12-29 Pat Name: Nereida Samuels Department: Room: 104 Gender: Female Consultant Dietitian: : 1955 Requested By: Tyron Cortes Order Number: [id number] Shawn MD: Tyron Cortes M.D. Measurements Intervals [place] Rate: 96 P: 50 SC: 187 QRS: 26 QRSD: 75 T: 88 QT: 345 QTc: 436 Interpretive Statements SINUS RHYTHM NONSPECIFIC T-WAVE ABNORMALITY Compared to ECG 12/28/2023 09:52:51 No significant changes Electronically Signed On 12-30-2023 9:12:35 INDIRECT SALES EXEC by Tyron Cortes M.D. [id number]
--- NOTE | 2023-12-29 23:45 | PC.NURSE ---
Patient stated that she was having chest pain radiating to her left arm. Dr Perez notified, EKG performed, Nitro was offered to patient but patient refused nitro and requested morphine. will continue to monitor.
[2023-12-30] VITALS (8 sets, daily range): BP systolic 84–108; BP diastolic 51–61; PULSE 79–93; RESP 16–24; TEMP 36.5–37; O2SAT 91–97; BMI 23.9
[2023-12-30 05:02] LABS: Basophils % 0.4 %; Eosinophils # 0.2 10^3/uL (0.0-0.8); Eosinophils % 3.1 %; Hematocrit 28.1 % (36-47); Lymphocytes # 1.6 10^3/uL (0.8-4.8); Lymphocytes % 21.2 %; Mean Corpuscular HGB Conc 28.5 g/dL (30-55); Mean Corpuscular Hemoglobin 24.5 pg (27-33); Mean Corpuscular Volume 85.9 fl (85-98); Mean Platelet Volume 10.6 fL (7.4-10.4); Monocytes # 0.9 10^3/uL (0.2-0.9); Monocytes % 11.8 %; Neutrophils # 4.62 10^3/uL (1.8-7.7); Nucleated Red Blood Cells % 0 %; Platelet Count 306 10^3/cmm (157-399); Red Blood Count 3.27 10^6/uL (3.85-5.65); Red Cell Distribution Width 16.1 % (12.1-15.1); White Blood Count 7.35 10^3/uL (3.29-11.43)
[2023-12-30 05:29] LABS: Alanine Aminotransferase 13 U/L (0-33); Albumin Level 2.8 g/dL (3.5-5.2); Alkaline Phosphatase 87 U/L (35-105); Anion Gap 12.4 (5-19); Aspartate Amino Transferase 38 U/L (0-32); Blood Urea Nitrogen 22 mg/dL (8-23); Calcium 8.1 mg/dL (8.5-10.5); Carbon Dioxide 23 mmol/L (22-29); Chloride 107 mmol/L (98-107); Creatinine Clr Calc Pharmacy 41.1273; Globulin 2.2 g/dL (1.3-4.6); Glomerular Filtration Rate 49.2 mL/min (90-130); Glucose 93 mg/dL (65-115); Osmolality Calculated 289 mOsm/kg (285-295); Potassium 4.4 mmol/L (3.5-5.1); Sodium 138 mmol/L (136-145); Total Bilirubin 0.2 mg/dL (0.15-1.2)
[2023-12-30 05:34] LABS: NT Pro B Type Natriuretic Pept 15097 pg/mL (0-125); Procalcitonin 0.09 ng/mL (0-0.5)
[2023-12-30] MEDS: sucralfate 1 gm/10 mL Oral Liq UDC PO ×2 (06:07→13:00)
[2023-12-30] MEDS: ipratropium-albuterol 3 mL Neb NEBULIZER (07:30)
[2023-12-30] MEDS: budesonide 0.5 mg/2 mL Neb INHALATION (07:30)
--- NOTE | 2023-12-30 07:50 | PM.PN ---
Subjective Subjective: Patient doing well. no chest pain Vitals/I&O/Wt Last Vital Signs Temp 98.2 F 12/30/23 07:00 Pulse 88 12/30/23 07:40 Resp 16 12/30/23 07:28 BP 108/57 12/30/23 07:00 Pulse Ox 91 12/30/23 07:28 O2 Del Method Room Air 12/30/23 07:28 O2 Flow Rate 1 12/29/23 14:40 12/29/23 12/30/23 12/30/23 22:59 06:59 14:59 Intake Total 1460 / 1580 640 / 2220 Balance 1460 / 580 640 / 1220 Weight last 48 hrs Weight 131 lb 1 oz Weight 131 lb 1 oz Weight 131 lb 12.8 oz Weight 129 lb 12.8 oz Weight 129 lb 12.8 oz Physical Exam Narrative: GENERAL: Patient is alert, awake and oriented x3. [] NECK: No jugular vein distension. [] HEENT: No cyanosis. No icterus. No pallor. [] HEART: Regular S1 and S2. No murmur, rub or gallop. [] LUNGS: Clear to auscultate bilaterally. [] CENTRAL NERVOUS SYSTEM: Grossly nonfocal. [] EXTREMITIES: Lower extremities with 1+ edema bilaterally. Data 12/30/23 13:53 12/30/23 03:56 A&P Assessment and plan (1) Non-ST elevated myocardial infarction: (2) Chest pain: (3) CHF exacerbation: (4) Anemia: Plan Patient doing well. Had successful revascularization of LAD. Will continue with dual antiplatelet therapy. High intensity statin therapy. Outpatient CBC. Thank you for involving us with care of this patient. Patient is stable to be discharged from cardiology standpoint. Please call with questions. Attestations Medical Necessity Statement*: Care expected to cross 2 midnights. Coding Level of Care Code Acute Code for [facility] Diagnoses Non-ST elevated myocardial infarction I21.4 Chest pain R07.9 CHF exacerbation I50.9 Anemia D64.9
--- NOTE | 2023-12-30 08:08 | PC.NURSE ---
Dr Neff ordered laxix 40mg IVP once. Order entered.
[2023-12-30] MEDS: potassium chloride ER 10 mEq Tablet PO (08:48)
[2023-12-30] MEDS: FUROsemide 10 mg/mL SDV 4mL 40 MG IVP (08:48)
[2023-12-30] MEDS: levothyroxine 88 mcg Tablet PO (08:48)
[2023-12-30] MEDS: ARIPiprazole 10 mg Tablet PO (08:48)
[2023-12-30] MEDS: metoprolol succinate ER (24 HR) 25 mg Tablet PO (08:48)
[2023-12-30] MEDS: duloxetine 60 mg Capsule PO (08:49)
[2023-12-30] MEDS: topiramate 25 mg Tablet 50 MG PO (08:49)
[2023-12-30] MEDS: clopidogrel 75 mg Tablet PO (08:49)
[2023-12-30] MEDS: CLONazepam 1 mg Tablet PO (08:49)
[2023-12-30] MEDS: aspirin 81 mg EC Tablet PO (08:49)
[2023-12-30] MEDS: iron sucrose 200 MG in sodium chloride 0.9% (100 ml) 100 ML 220 MG IV (09:20)
--- NOTE | 2023-12-30 11:15 | PC.NURSE ---
Patient walked the hallway, about 225 feet. No shortness of breath noted. Her vitals remained stable.
--- NOTE | 2023-12-30 12:04 | P.DS_ITS ---
Discharge Providers Date of Admission: 12/28/23 05:59 Date of Discharge: December 30, 2023 Attending Provider at Admission: Hank Berry DO Attending Provider at Discharge: Satnam Ferguson MD Primary Care Provider: Soheila Devlin MD Diagnoses at Discharge Discharge Diagnosis (1) Non-ST elevated myocardial infarction: Status: Acute (2) Chest pain: Status: Acute (3) Edema: Status: Acute Qualifiers: Edema type: unspecified Qualified Code(s): R60.9 - Edema, unspecified (4) CKD (chronic kidney disease) stage 3, GFR 30-59 ml/min: Status: Chronic (5) CHF exacerbation: Status: Acute (6) Anemia: Status: Acute (7) Weight loss: Status: Acute Reason for Visit Reason for Visit: CP Hospital Course Hospital Course Nereida Samuels is a 68 year old female with history of CHF and lower extremity edema presents with a day of chest pain located left chest under breast. She had radiation to her jaw down her left arm. She has shortness of breath she denied any nausea or vomiting. She states that she has had chest pain before but this was nothing like it had felt in the past. Today it felt like pressure like someone stepping on her chest. She states her lower extremities have been swollen since September and they have been trying to deal with it. She states it is getting worse instead of better. She also reports some lymph node swelling and trouble swallowing. She is asking for assistance. This is a 68-year-old female who presents [facility] for NSTEMI, chest pain, underwent coronary angiography which showed 99% proximal to mid LAD stenosis with 1 stent placement, she had plaque shift into small to medium sized diagonal artery, diagonal artery was ballooned and flow was restored, she was monitored thereafter on nitroglycerin, weaned glycerin drip, remained chest pain-free, ambulated 200 feet before discharge discharged on aspirin, Plavix, statin, beta-misael with a close follow-up cardiology as outpatient. Patient was advised if she has any recurrent chest pain to go back to the emergency room. Patient also had CHF exacerbation during hospitalization, EF 55 to 60% received intermittent diuresis, discharged home Lasix 40 mg daily with potassium replacement therapy, follow-up with cardiology as outpatient Patient had evidence of anemia, iron deficiency anemia during hospitalization, with history of bypass for gastric ulcers denies any bloody or black stools, no hemodynamic compromise hemoglobin was monitored during hospitalization remained stable hemoglobin discharge was 8, discharged on Protonix, Carafate. Will have patient follow-up with general surgery for consideration of EGD and colonoscopy especially as patient has aspirin Plavix on board for her recent stent placement. See primary care provider for recheck hemoglobin in 1 week. Patient also has evidence of iron deficiency anemia, received IV Venofer during hospitalization and discharged with 4 remaining doses of IV Venofer through the outpatient GI Lab For her weight loss, follow-up with general surgery for EGD and colonoscopy as above, she did have multiple cervical lymph nodes which were enlarged, follow-up with ENT For anxiety depression, follow-up with primary care, will refer to [facility] Physical Exam Const: COMMON NORMALS: no acute distress and patient oriented x3 Resp: COMMON NORMALS: normal respiratory effort, No retractions, No use of accessory muscles and clear to auscultation bilaterally AUSCULTATION: clear to auscultation bilaterally Cardio: COMMON NORMALS: regular rate, regular rhythm, S1 normal heart sound present and S2 normal heart sound present RATE: regular rate RHYTHM: regular rhythm HEART SOUNDS: S1 normal heart sound present and S2 normal heart sound present GI: COMMON NORMALS: Normal to inspection, nondistended, normoactive bowel sounds present and non-tender Extremity: COMMON NORMALS: no pedal edema Neuro: COMMON NORMALS: patient oriented x3 Psych: COMMON NORMALS: mental status grossly normal Discharge Data Studies Completed and Pending Completed Studies During Hospitalization Category Date Time Status CT chest abdomen pelvis [CT chest abdpel w/*[id number] Cat Scan 12/28/23 13:16 Completed ] Routine XR chest 1V portable [id number] Stat Exams 12/28/23 02:50 [place] [id number] Stat Ultrasound 12/28/23 11:17 Completed CV. echo complete* [id number] Stat Ultrasound 12/28/23 10:58 Completed Pending at discharge Category Date Time Status [employer] COMPENSATION request for service Routine Exams 12/29/23 08:05 Taken C Reactive Protein AM LABS Lab 12/31/23 04:00 Ordered CBC Auto Diff [Complete Blood Count w/Auto] Stat Lab 12/30/23 11:56 Ordered Complete Blood Count w/Auto AM LABS Lab 12/31/23 04:00 Ordered Comprehensive Metabolic Panel AM LABS Lab 12/31/23 04:00 Ordered Magnesium AM LABS Lab 12/31/23 04:00 Ordered NT Pro B Type Natriuretic Pept QAM Lab 12/31/23 06:00 Ordered Occult Blood Stool [Immunochemical Fecal OCB] Stat Lab 12/28/23 11:19 Uncollected Phosphorus AM LABS Lab 12/31/23 04:00 Ordered Procalcitonin AM LABS Lab 12/31/23 04:00 Ordered Radiology Impressions Chest X-Ray 12/28/23 02:50 IMPRESSION: Hazy right lower lobe opacities, could be infiltrate and/or atelectasis. Chest/Abdomen/Pelvis CT 12/28/23 13:16 IMPRESSION: No acute findings. IMPRESSION: No acute findings. Laboratory Results WBC 7.35 10^3/uL (3.29-11.43) 12/30/23 03:56 RBC 3.27 10^6/uL (3.85-5.65) L 12/30/23 03:56 Hgb 8.00 g/dL (11.27-16.99) L 12/30/23 03:56 Hct 28.1 % (36-47) L 12/30/23 03:56 MCV 85.9 fl (85-98) 12/30/23 03:56 MCH 24.5 pg (27-33) L 12/30/23 03:56 MCHC 28.5 g/dL (30-55) L 12/30/23 03:56 RDW 16.1 % (12.1-15.1) H 12/30/23 03:56 Plt Count 306 10^3/cmm (157-399) 12/30/23 03:56 MPV 10.6 fL (7.4-10.4) H 12/30/23 03:56 Neut % (Auto) 63.0 % 12/30/23 03:56 Lymph % (Auto) 21.2 % 12/30/23 03:56 [place] % (Auto) 11.8 % 12/30/23 03:56 Eos % (Auto) 3.1 % 12/30/23 03:56 Baso % (Auto) 0.4 % 12/30/23 03:56 Neut # (Auto) 4.62 10^3/uL (1.8-7.7) 12/30/23 03:56 Lymph # (Auto) 1.6 10^3/uL (0.8-4.8) 12/30/23 03:56 [place] # (Auto) 0.9 10^3/uL (0.2-0.9) 12/30/23 03:56 Eos # (Auto) 0.2 10^3/uL (0.0-0.8) 12/30/23 03:56 Baso # (Auto) 0.0 10^3/uL (0.0-0.1) 12/30/23 03:56 Nucleated RBC % (auto) 0 % 12/30/23 03:56 Nucleated RBCs # 0.0 /100WBC 12/30/23 03:56 ESR 12 mm/hr (0-15) 12/28/23 12:06 PT 12.90 SECONDS (12.1-14.9) 12/28/23 03:40 INR 0.94 (0.8-1.2) 12/28/23 03:40 APTT 49.6 SECONDS (23.9-36.7) H 12/29/23 13:12 D-Dimer 0.53 ug/mLFEU (0-0.59) 12/28/23 12:06 Sodium 138 mmol/L (136-145) 12/30/23 03:56 Potassium 4.4 mmol/L (3.5-5.1) 12/30/23 03:56 Chloride 107 mmol/L (98-107) 12/30/23 03:56 Carbon Dioxide 23 mmol/L (22-29) 12/30/23 03:56 Anion Gap 12.4 (5-19) 12/30/23 03:56 BUN 22 mg/dL (8-23) 12/30/23 03:56 Creatinine 1.1 mg/dL (0.5-0.9) H 12/30/23 03:56 GFR Calculation 49.2 mL/min (90-130) L 12/30/23 03:56 Glucose 93 mg/dL (65-115) 12/30/23 03:56 POC Glucose 94 mg/dL (70-110) 12/28/23 20:45 Calculated Osmolality 289 mOsm/kg (285-295) 12/30/23 03:56 Calcium 8.1 mg/dL (8.5-10.5) L 12/30/23 03:56 Phosphorus 3.0 mg/dL (2.5-4.5) 12/30/23 03:56 Magnesium 2.0 mg/dL (1.7-2.3) 12/30/23 03:56 Iron 23 ug/dL (37-145) L 12/28/23 12:06 Ferritin 11 ng/mL (15-150) L 12/28/23 12:06 Total Bilirubin 0.2 mg/dL (0.15-1.2) 12/30/23 03:56 AST 38 U/L (0-32) H 12/30/23 03:56 ALT 13 U/L (0-33) 12/30/23 03:56 Alkaline Phosphatase 87 U/L (35-105) 12/30/23 03:56 Creatine Kinase 106 U/L (26-192) 12/28/23 03:40 Troponin T Baseline 154 ng/L (0-10) H* 12/28/23 03:40 Troponin T 120 Minute 216.0 ng/L (0-10) H 12/28/23 05:11 Delta Troponin T 62.0 ABS# (0-10) H* 12/28/23 05:11 Troponin T Hi Sens 6Hr 300.5 ng/L (0-10) H 12/28/23 09:30 Troponin T Hi Sens 6Hr Delta 146.5 ng/L (0-12) H* 12/28/23 09:30 C-Reactive Protein 3.0 mg/L (0.0-4.9) 12/30/23 03:56 NT-Pro-B Natriuret Pep 22465 pg/mL (0-125) H 12/30/23 03:56 Total Protein 5.0 g/dL (6.6-8.7) L 12/30/23 03:56 Albumin 2.8 g/dL (3.5-5.2) L 12/30/23 03:56 Globulin 2.2 g/dL (1.3-4.6) 12/30/23 03:56 Vitamin B12 717 pg/mL (232-1245) 12/28/23 12:06 Folate 18.9 ng/mL (4.8-37.3) 12/28/23 12:06 Procalcitonin 0.09 ng/mL (0-0.5) 12/30/23 03:56 Urine Color Straw (Yellow) 12/28/23 05:33 Urine Appearance Clear (CLEAR) 12/28/23 05:33 Urine pH 7 (5-7) 12/28/23 05:33 Ur Specific Burt 1.005 (1.005-1.030) 12/28/23 05:33 Urine Protein Neg (Negative) 12/28/23 05:33 Urine Glucose (UA) Norm (Normal) 12/28/23 05:33 Urine Ketones Negative (Negative) 12/28/23 05:33 Urine Blood Neg (Negative) 12/28/23 05:33 Urine Nitrate Negative (Negative) 12/28/23 05:33 Urine Bilirubin Neg (Negative) 12/28/23 05:33 Urine Urobilinogen Norm mg/dL (Negative) 12/28/23 05:33 Ur Leukocyte Esterase Negative (Negative) 12/28/23 05:33 Adenovirus (PCR) Not detected (NOT DETECT) 12/28/23 03:48 C. pneumoniae DNA (PCR) Not detected (NOT DETECT) 12/28/23 03:48 Coronavirus 229E (PCR) Not detected (NOT DETECT) 12/28/23 03:48 Human Metapneumovir PCR Not detected (NOT DETECT) 12/28/23 03:48 Influenza A (H1) PCR Not detected (NOT DETECT) 12/28/23 03:48 Influ A (H1/09) PCR Not detected (NOT DETECT) 12/28/23 03:48 Influenza A (H3) PCR Not detected (NOT DETECT) 12/28/23 03:48 Influenza Type A (PCR) Not detected (NOT DETECT) 12/28/23 03:48 Influenza Type B (PCR) Not detected (NOT DETECT) 12/28/23 03:48 M. pneumoniae (PCR) Not detected (NOT DETECT) 12/28/23 03:48 Parainfluenza 1 (PCR) Not detected (NOT DETECT) 12/28/23 03:48 Parainfluenza 2 (PCR) Not detected (NOT DETECT) 12/28/23 03:48 Parainfluenza 3 (PCR) Not detected (NOT DETECT) 12/28/23 03:48 Parainfluenza 4 (PCR) Not detected (NOT DETECT) 12/28/23 03:48 RSV Type A (PCR) Not detected (NOT DETECT) 12/28/23 03:48 RSV Type B (PCR) Not detected (NOT DETECT) 12/28/23 03:48 Entero/Rhino (PCR) Not detected (NOT DETECT) 12/28/23 03:48 SARS-CoV-2 (PCR) Not detected (NOT DETECT) 12/28/23 03:48 Vitals Last Vital Signs Temp 98.6 F 12/30/23 11:04 Pulse 93 12/30/23 11:04 Resp 24 H 12/30/23 11:04 BP 106/61 12/30/23 11:04 Pulse Ox 96 12/30/23 11:04 O2 Del Method Room Air 12/30/23 11:04 O2 Flow Rate 1 12/29/23 14:40 Discharge Plan Discharge Patient Disposition: Home Condition: Stable Prescriptions: New potassium chloride [Klor-Con 10] 10 mEq Tablet Extended Release 10 meq PO DAILY 30 Days Qty: 30 0RF sucralfate 100 mg/mL Suspension 1 g PO BID 30 Days Qty: 600 0RF aspirin 81 mg Tablet,Delayed Release (Dr/Ec) 81 mg PO DAILY 30 Days Qty: 30 0RF nitroglycerin 0.4 mg Tablet, Sublingual 0.4 mg sublingual Q5M PRN (Reason: Chest Pain) 30 Days Qty: 30 0RF atorvastatin 40 mg tablet 40 mg PO DAILY 30 Days Qty: 30 0RF clopidogrel 75 mg Tablet 75 mg PO DAILY 30 Days Qty: 30 0RF Venofer 200 mg iron/10 mL solution 200 mg IV EVERY OTHER DAY Qty: 40 0RF Rx Instructions: administer over 2-5 mins pantoprazole [Protonix] 40 mg tablet,delayed release (DR/EC) 40 mg PO BID 30 Days Qty: 60 0RF Continued (DME) compressor, for nebulizer Device See Rx Instructions .Route Qty: 1 0RF Rx Instructions: As directed (DME) nebulizer accessories Misc See Rx Instructions .Route Qty: 1 0RF Rx Instructions: As directed (DME) Lift chair See Rx Instructions .Route .MEDSUPPLY Qty: 1 0RF Rx Instructions: Unable to get up from sitting to standing and lives alone. tramadol 50 mg tablet 50 mg PO Q8H PRN (Reason: pain) Qty: 90 0RF furosemide 40 mg tablet See Rx Instructions .ROUTE .COMPLEX Qty: 20 2RF Dose Instruction: TAKE ONE TABLET BY MOUTH EVERY MORNING Rx Instructions: TAKE ONE TABLET BY MOUTH EVERY MORNING hydrocortisone 1 % cream 1 applic topical DAILY PRN (Reason: rash) Qty: 28.4 0RF albuterol sulfate 90 mcg/actuation HFA aerosol inhaler See Rx Instructions .ROUTE .COMPLEX Qty: 18 4RF Dose Instruction: INHALE 1 PUFF INTO LUNGS FOUR TIMES DAILY NEEDED FOR SHORTNESS OF BREATH OR WHEEZING Rx Instructions: INHALE 1 PUFF INTO LUNGS FOUR TIMES DAILY NEEDED FOR SHORTNESS OF BREATH OR WHEEZING rizatriptan [Maxalt] 10 mg tablet See Rx Instructions PO .COMPLEX Qty: 14 3RF Rx Instructions: take 1 tab at onset of headache; if no relief may repeat 1 tab after at least 2 hrs; max = 2 tabs/24 hr PO budesonide-formoterol [Symbicort] 160-4.5 mcg/actuation HFA aerosol inhaler See Rx Instructions .ROUTE .COMPLEX PRN (Reason: copd) Qty: 10.2 0RF Dose Instruction: INHALE 2 PUFFS INTO LUNGS TWICE DAILY Rx Instructions: INHALE 2 PUFFS INTO LUNGS TWICE DAILY PRN; ipratropium-albuterol 0.5 mg-3 mg(2.5 mg base)/3 mL solution for nebulization See Rx Instructions .ROUTE .COMPLEX Qty: 180 2RF Dose Instruction: INHALE THE CONTENTS OF ONE VIAL PER NEBULIZER THREE TIMES DAILY Rx Instructions: INHALE THE CONTENTS OF ONE VIAL PER NEBULIZER THREE TIMES DAILY albuterol sulfate 2.5 mg /3 mL (0.083 %) solution for nebulization 2.5 mg inhalation QID PRN (Reason: shortness of breath or wheezing) Qty: 180 5RF azelastine 137 mcg (0.1 %) aerosol,spray See Rx Instructions .ROUTE .COMPLEX Qty: 30 4RF Dose Instruction: USE 1 SPRAY IN EACH NOSTRIL TWICE DAILY Rx Instructions: USE 1 SPRAY IN EACH NOSTRIL TWICE DAILY Atrovent HFA 17 mcg/actuation HFA aerosol inhaler See Rx Instructions .ROUTE .COMPLEX Qty: 12.9 0RF Dose Instruction: INHALE 2 PUFFS INTO LUNGS FOUR TIMES DAILY NEEDED FOR SHORTNESS OF BREATH Rx Instructions: INHALE 2 PUFFS INTO LUNGS FOUR TIMES DAILY NEEDED FOR SHORTNESS OF BREATH metoprolol succinate 25 mg tablet extended release 24 hr 25 mg PO DAILY Qty: 30 3RF (DME) BD Luer-Thai Syringe 3 mL 25 gauge x 1 syringe See Rx Instructions .ROUTE .COMPLEX Qty: 20 3RF Dose Instruction: USE WITH BI2 INJECTION EVERY 14 DAYS Rx Instructions: USE WITH BI2 INJECTION EVERY 14 DAYS pantoprazole 40 mg tablet,delayed release (DR/EC) See Rx Instructions .ROUTE .COMPLEX Qty: 90 0RF Dose Instruction: TAKE ONE TABLET BY MOUTH DAILY Rx Instructions: TAKE ONE TABLET BY MOUTH DAILY duloxetine 60 mg capsule,delayed release(DR/EC) See Rx Instructions .ROUTE .COMPLEX Qty: 180 0RF Dose Instruction: TAKE ONE CAPSULE BY MOUTH TWICE DAILY Rx Instructions: TAKE ONE CAPSULE BY MOUTH TWICE DAILY topiramate 50 mg tablet See Rx Instructions .ROUTE .COMPLEX Qty: 180 0RF Dose Instruction: TAKE ONE TABLET BY MOUTH TWICE DAILY Rx Instructions: TAKE ONE TABLET BY MOUTH TWICE DAILY cyanocobalamin (vitamin B-12) 1,000 mcg/mL solution See Rx Instructions .ROUTE .COMPLEX Qty: 3 2RF Dose Instruction: INJECT ONE ML INTRAMUSCULARLY MONTHLY Rx Instructions: INJECT ONE ML INTRAMUSCULARLY MONTHLY trazodone 150 mg tablet See Rx Instructions .ROUTE .COMPLEX Qty: 90 1RF Dose Instruction: TAKE ONE TABLET BY MOUTH AT BEDTIME Rx Instructions: TAKE ONE TABLET BY MOUTH AT BEDTIME levothyroxine 88 mcg tablet 88 mcg PO DAILY Qty: 30 2RF Rx Instructions: dose change clonazepam 1 mg tablet,disintegrating 1 mg PO BID Qty: 60 2RF aripiprazole [Abilify] 10 mg tablet 10 mg PO DAILY Qty: 30 3RF promethazine 25 mg tablet See Rx Instructions .ROUTE .COMPLEX Qty: 30 1RF Dose Instruction: TAKE ONE TABLET BY MOUTH EVERY 6 HOURS NEEDED FOR NAUSEA AND VOMITING Rx Instructions: TAKE ONE TABLET BY MOUTH EVERY 6 HOURS NEEDED FOR NAUSEA AND VOMITING tizanidine 4 mg tablet 8 mg PO Q8H PRN (Reason: muscle spasticity) Qty: 180 0RF potassium chloride 10 mEq tablet extended release 10 meq PO DAILY Qty: 20 2RF Discontinued Excedrin Migraine 250-250-65 mg tablet 1 tab PO Q6H PRN (Reason: Headache) fluconazole 150 mg tablet 150 mg PO DAILY Qty: 7 0RF Discharge Orders: Discharge Order (Routine); Ordered 12/30/23 Ordered By: Satnam Ferguson Referrals: Clifford Perry MD [Physician] - 2 weeks (egd and colonoscopy) Joe Dennis MD [Hospitalist] - 1 month (anemia, bonemarroweval) Soheila Devlin MD [Primary Care Provider] - 1-3 days Nash Ortiz MD [Physician] - 1 month (cervical lymphadenoapthy) Discharge Diet: Cardiac Discharge Activity: Resume usual activity Patient Instructions: Opioid Safety Activity Restrictions/Additional Instructions: - For your cardiac stent, please take aspirin and Plavix as prescribed -Do not stop taking these medications, if you develop bloody or black stools please come to the emergency room -For your anemia, please have your primary care provider watch her hemoglobin as outpatient, monitoring at least once weekly -If hemoglobin less than 7 please come to the emergency room -For your iron deficiency, I have set up iron infusions -For your anemia please follow-up with general surgery in 2 weeks for consideration of EGD and colonoscopy -I discharged you on Protonix, Carafate -For your CHF, please take Lasix with potassium once daily -If you have worsening shortness of breath despite the emergency room -Please have primary care keep a very close eye on your hemoglobin at least once weekly hemoglobin checks, monitor your kidney function, Discharge Attestations Time Spent in Discharge Care*: greater than 30 min Status at Discharge: Cognitive status at discharge: cognitively intact , Behavioral status at discharge: cooperative , Quality Metrics Clinical Quality Measures [ Acute Myocardial Infaction { Clinical Trial Participant: No; Contraindication to aspirin: None; Aspirin prescribed; Contraindication to statin: None; Statin prescribed; Contraindication to PCI: None; PCI performed;}] Coding Level of Care Code 20205 Total time (in minutes) for Discharge: 45 Diagnoses Non-ST elevated myocardial infarction I21.4 Chest pain R07.9 Edema, unspecified type R60.9 Edema type: unspecified CKD (chronic kidney disease) stage 3, GFR 30-59 ml/min N18.30 CHF exacerbation I50.9 Anemia D64.9 Weight loss R63.4
[2023-12-30] MEDS: atorvastatin 40 mg Tablet PO (13:00)
[2023-12-30] MEDS: polyethylene glycol 3350 Pkt 17 gm PO (13:00)
[2023-12-30] MEDS: pantoprazole 40 mg SDV IVP (13:00)
[2023-12-30 14:01] LABS: Basophils # 0.1 10^3/uL (0.0-0.1); Basophils % 0.7 %; Eosinophils # 0.1 10^3/uL (0.0-0.8); Eosinophils % 1.8 %; Hematocrit 29.2 % (36-47); Lymphocytes # 0.8 10^3/uL (0.8-4.8); Lymphocytes % 11.6 %; Mean Corpuscular HGB Conc 28.4 g/dL (30-55); Mean Corpuscular Hemoglobin 24.1 pg (27-33); Mean Corpuscular Volume 84.9 fl (85-98); Mean Platelet Volume 10.3 fL (7.4-10.4); Monocytes # 0.9 10^3/uL (0.2-0.9); Neutrophils # 5.28 10^3/uL (1.8-7.7); Neutrophils % 73.5 %; Nucleated Red Blood Cells % 0 %; Platelet Count 322 10^3/cmm (157-399); Red Blood Count 3.44 10^6/uL (3.85-5.65); Red Cell Distribution Width 16.1 % (12.1-15.1); White Blood Count 7.18 10^3/uL (3.29-11.43)
--- NOTE | 2023-12-30 15:00 | PC.NURSE ---
Patient was given discharge papers and states understanding. She left via a private car with her sister.
== END 2023-12-30 14:54 | disposition home or self-care (01) | DRG 322 ==
LOC: ER 04:53 → CSU 06:26
PROVIDERS: Internal Medicine; Admitting Provider Internal Medicine; Emergency Provider Emergency Medicine; PCP Family Medicine; Visit Provider Family Medicine
PROC: 027034Z Dilation of Coronary Artery, One Artery with Drug-eluting Intraluminal Device, Percutaneous Approach (ICD-10-PCS; principal; 2023-12-29 09:50)
PROC: 027034Z Dilation of Coronary Artery, One Artery with Drug-eluting Intraluminal Device, Percutaneous Approach (ICD-10-PCS; 2023-12-29 09:50)
DX: I21.4 Non-ST elevation (NSTEMI) myocardial infarction (principal); N17.9 Acute kidney failure, unspecified; N18.30 Chronic kidney disease, stage 3 unspecified; J44.9 Chronic obstructive pulmonary disease, unspecified; I27.20 Pulmonary hypertension, unspecified; M79.7 Fibromyalgia; M41.9 Scoliosis, unspecified; K21.9 Gastro-esophageal reflux disease without esophagitis; G43.909 Migraine, unspecified, not intractable, without status migrainosus; E03.9 Hypothyroidism, unspecified; F41.9 Anxiety disorder, unspecified; F32.A Depression, unspecified; I25.10 Atherosclerotic heart disease of native coronary artery without angina pectoris; R63.4 Abnormal weight loss; E53.8 Deficiency of other specified B group vitamins; Z98.84 Bariatric surgery status; I50.9 Heart failure, unspecified; D63.1 Anemia in chronic kidney disease; D50.9 Iron deficiency anemia, unspecified
CPT/HCPCS: 36415; 36416; 71045; 71260; 74177; 80053; 81003; 82550; 82607; 82728; 82746; 82962; 83540; 83735; 83880; 84100; 84145; 84484; 85025; 85347; 85378; 85610; 85651; 85730; 86140; 87486; 87581; 87633; 93005; 93306; 93454; 93970; 94640; 96367; 96372; 96374; 96375; 99152; 99153; 99285; C1725; C1769; C1874; C1887; C1894; C9113; C9600; J1644; J1650; J1756; J1940; J2250; J2270; J2405; J2765; J3010; J3490; J7030; J7626; Q0162; Q9967

== ENCOUNTER → 2024-01-05 15:08 | Outpatient (BNVA) | payer MEDICARE, MEDICAID, SELFPAY | PROVIDERS: PCP Family Medicine; Visit Provider Family Medicine | DX: D64.9 Anemia, unspecified (principal); R30.0 Dysuria | CPT/HCPCS: 81000; 85018 ==

== ENCOUNTER 2024-01-15 18:56 | Emergency (ER) | payer MEDICARE, MEDICAID, SELFPAY ==
--- NOTE | 2024-01-15 18:02 | ECG_ITS ---
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 Measurements Intervals [place] Rate: 87 P: 52 RI: 195 QRS: 62 QRSD: 78 T: 83 QT: 364 QTc: 440 Interpretive Statements SINUS RHYTHM NONSPECIFIC T-WAVE ABNORMALITY Compared to ECG 12/29/2023 21:55:12 No significant changes Electronically Signed On 01-15-2024 22:03:28 CDT by Tyron Cortes M.D. [id number] f
--- NOTE | 2024-01-15 18:02 | ECG_ITS ---
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 Measurements Intervals [place] Rate: 87 P: 52 WI: 195 QRS: 62 QRSD: 78 T: 83 QT: 364 QTc: 440 Interpretive Statements SINUS RHYTHM NONSPECIFIC T-WAVE ABNORMALITY Compared to ECG 12/29/2023 21:55:12 No significant changes Electronically Signed On 01-15-2024 22:00:16 CDT by Tyron Cortes M.D. [email or web address]
[2024-01-15 18:58] VITALS: BP 120/63; PULSE 86; RESP 14; TEMP 36.6; O2SAT 91; BMI 19.5
--- NOTE | 2024-01-15 19:02 | XRR_ITS ---
PROCEDURE INFORMATION: Exam: XR Chest Exam date and time: 01/15/2024 7:25 PM Age: 68 years old Clinical indication: Chest pressure; Patient HX: C/O chest pain. History of chf and copd. ; Additional info: Cxp TECHNIQUE: Imaging protocol: Radiologic exam of the chest. Views: 1 view. COMPARISON: CT chest abdpel w/*[id number] 12/28/2023 2:54 PM FINDINGS: Lungs: Hyperinflated lungs. Calcified granuloma noted in the right upper lung. No consolidation. Pleural spaces: Unremarkable. No pleural effusion. No pneumothorax. Heart/Mediastinum: Unremarkable. No cardiomegaly. Bones/joints: Visualized osseous structures are intact. XR/XR chest 1V portable [id number] IMPRESSION: No acute findings.
[2024-01-15 19:35] LABS: Basophils # 0.1 10^3/uL (0.0-0.1); Basophils % 1.1 %; Eosinophils # 0.1 10^3/uL (0.0-0.8); Eosinophils % 2.3 %; Hematocrit 29.4 % (36-47); Lymphocytes # 1.6 10^3/uL (0.8-4.8); Mean Corpuscular HGB Conc 29.3 g/dL (30-55); Mean Corpuscular Hemoglobin 24.6 pg (27-33); Mean Platelet Volume 10.6 fL (7.4-10.4); Monocytes # 0.5 10^3/uL (0.2-0.9); Monocytes % 9.7 %; Neutrophils # 3.23 10^3/uL (1.8-7.7); Neutrophils % 57.7 %; Nucleated Red Blood Cells % 0 %; Platelet Count 312 10^3/cmm (157-399); Red Cell Distribution Width 17.7 % (12.1-15.1); White Blood Count 5.59 10^3/uL (3.29-11.43)
--- NOTE | 2024-01-15 19:40 | W.ED.CHESTPA ---
HPI - Chest Pain General: Chief Complaint: Chest Pain Stated Complaint: chest pain Time Seen by Provider: 01/15/24 19:00 History of Present Illness: 68-year-old female presents emergency department via EMS personnel stating that she felt like she was having sharp stabbing chest pain to the left chest area. She recently was hospitalized and had cardiac stents placed. She states she has not missed any medication doses of her anticoagulation. She states that she became very anxious and felt like she was having shortness of breath at the time that her 6 out of 10 chest pain started. She does not appear to be in acute distress at present. She does appear to be very anxious and worried. She does not appear to have any increased work of breathing. She states that over the previous 1 and half weeks she has had increased swelling to her bilateral lower legs. She did currently has 1+ bilateral lower extremity pitting edema. Associated symptoms: Reports dyspnea Review of Systems General: Reports: 10 or more systems reviewed and unremarkable except in HPI and below Card: Reports: chest pain and edema Resp: Reports: dyspnea PFSH ED PFSH: Medical History CKD (chronic kidney disease) stage 3, GFR 30-59 ml/min Syncope and collapse COPD (chronic obstructive pulmonary disease) Moderate pulmonary hypertension Lyme disease Fibromyalgia Scoliosis GERD without esophagitis Mandibular fracture Fractured sternum Environmental and seasonal allergies Vitamin B12 deficiency Migraines Hypothyroidism Anxiety and depression Surgical History Hx of knee surgery Hx of shoulder surgery Hx of hysterectomy Hx of appendectomy History of back surgery History of surgery on wrist Family History Father Diabetes Hypertension Sister Diabetes Hypertension Other Lung disease Social History Smoking and tobacco/nicotine status: never used tobacco/nicotine Second hand smoke exposure: No Alcohol intake: never Substance/Drug Use: never Adopted: No Caregiver/support person: No Lives independently: Yes Household members: none Housing: House Marital status: / Number of children: 2 Number of grandchildren: 3 Highest education level completed: Master's Degree service: No Current occupational status: retired Pets and animals: Yes Do you think of yourself as: Straight/Heterosexual Current gender identity: Female Physical Exam Narrative: EXAM NARRATIVE: Constitutional: the patient appears well nourished and of normal development. Vital signs as documented. No acute distress at present. Alert and oriented-to person, place, time and situation. Head, eyes, ears, nose, mouth, throat: Normocephalic, atraumatic. Pupils-equal, round, reactive to light. No scleral icterus. Normal-appearing external ears. Normal appearing nasal turbinates, no drainage. No obvious oral lesions, posterior oropharynx without erythema or exudates. Neck: Supple, trachea is midline, no lymphadenopathy, no jugular venous distension, thyromegaly, or carotid bruits. Carotid upstrokes are brisk bilaterally. Lungs: clear to auscultation to all lung silverman. Symmetrical rise and fall of chest, no obvious signs of increased work of breathing at present. Cardiac: Regular rate and rhythm, positive S1, S2. No murmurs, rubs or gallops that I can appreciate Abdomen: Soft, non-tender to palpation, normal active bowel sounds to all quadrants. No palpable masses, no organomegaly and abdominal bruits. Extremities: 2+ pulses in the upper extremities that are equal bilaterally, 2+ pulses in the lower extremities that are equal bilaterally. 1+ bilateral lower extremity pitting edema.. Moves all extremities well, sensation to all extremities are noted. Skin: Warm, dry, intact. Course Vital Signs: Vital signs: Vital Signs Temperature 97.8 F 01/15/24 23:02 Pulse Rate 82 01/15/24 23:02 Respiratory Rate 16 01/15/24 23:02 Blood Pressure 114/57 01/15/24 23:02 Pulse Oximetry 96 01/15/24 23:02 Oxygen Delivery Me thod Room Air 01/15/24 18:58 MDM - Chest Pain Medical Decision Making I will obtain a CBC and CMP as well as serial cardiac enzymes and twelve-lead EKGs as well as a chest x-ray. Medical Records I reviewed the patient's medical records. Lab Data I reviewed the patient's lab results. 01/15/24 19:27 01/15/24 19:27 Radiology Impressions Chest X-Ray 01/15/24 19:02 IMPRESSION: No acute findings. Laboratory Results WBC 5.59 10^3/uL (3.29-11.43) 01/15/24: RBC 3.50 10^6/uL (3.85-5.65) L 01/15/24: Hgb 8.60 g/dL (11.27-16.99) L 01/15/24: Hct 29.4 % (36-47) L 01/15/24: MCV 84.0 fl (85-98) L 01/15/24 MCH 24.6 pg (27-33) L 01/15/24: MCHC 29.3 g/dL (30-55) L 01/15/24: RDW 17.7 % (12.1-15.1) H 01/15/24 Plt Count 312 10^3/cmm (157-399) 01/15/24 MPV 10.6 fL (7.4-10.4) H 01/15/24: Neut % (Auto) 57.7 % 01/15/24 Lymph % (Auto) 29.0 % 01/15/24: [place] % (Auto) 9.7 % 01/15/24: Eos % (Auto) 2.3 % 01/15/24 Baso % (Auto) 1.1 % 01/15/24 Neut # (Auto) 3.23 10^3/uL (1.8-7.7) 01/15/24 Lymph # (Auto) 1.6 10^3/uL (0.8-4.8) 01/15/24 Weston # (Auto) 0.5 10^3/uL (0.2-0.9) 01/15/24 Eos # (Auto) 0.1 10^3/uL (0.0-0.8) 01/15/24 Baso # (Auto) 0.1 10^3/uL (0.0-0.1) 01/15/24 Nucleated RBC % (auto) 0 % 01/15/24 Nucleated RBCs # 0.0 /100WBC 01/15/24 PT 13.70 SECONDS (12.1-14.9) 03/15/24 19:27 INR 1.02 (0.8-1.2) 01/15/24 19:27 Sodium 139 mmol/L (136-145) 01/15/24 19:27 Potassium 4.3 mmol/L (3.5-5.1) 01/15/24 19: Chloride 105 mmol/L (98-107) 01/15/24 19: Carbon Dioxide 24 mmol/L (22-29) 01/15/24 19: Anion Gap 14.3 (5-19) 01/15/24 19:27 BUN 19 mg/dL (8-23) 01/15/24 19: Creatinine 1.2 mg/dL (0.5-0.9) H 01/15/24 19: GFR Calculation 44.5 mL/min (90-130) L 01/15/24 19: Glucose 92 mg/dL (65-115) 01/15/24 19: Calculated Osmolality 290 mOsm/kg (285-295) 01/15/24 19: Calcium 8.6 mg/dL (8.5-10.5) 01/15/24 19: Total Bilirubin 0.2 mg/dL (0.15-1.2) 01/15/24 19: AST 23 U/L (0-32) 01/15/24 19: ALT 14 U/L (0-33) 01/15/24 19:27 Alkaline Phosphatase 99 U/L (35-105) 01/15/24 19:27 Troponin T Baseline 24 ng/L (0-10) H 01/15/24 19:27 Troponin T 120 Minute 23.91 ng/L (0-10) H 01/15/24 21:26 Delta Troponin T -0.09 ABS# (0-10) L 01/15/24 21:26 NT-Pro-B Natriuret Pep 2410 pg/mL (0-125) H 01/15/24 19:27 Total Protein 5.6 g/dL (6.6-8.7) L 01/15/24 19:27 Albumin 3.9 g/dL (3.5-5.2) 01/15/24 19:27 Globulin 1.7 g/dL (1.3-4.6) 01/15/24 19:27 Urine Color Colorless (Yellow) 01/15/24 19:40 Urine Appearance Clear (CLEAR) 01/15/24 19:40 Urine pH 7 (5-7) 01/15/24 19:40 Ur Specific [place] 1.005 (1.005-1.030) 01/15/24 19:40 Urine Protein Neg (Negative) 01/15/24 19:40 Urine Glucose (UA) Norm (Normal) 01/15/24 19:40 Urine Ketones Negative (Negative) 01/15/24 19:40 Urine Blood Neg (Negative) 01/15/24 19:40 Urine Nitrate Negative (Negative) 01/15/24 19:40 Urine Bilirubin Neg (Negative) 01/15/24 19:40 Urine Urobilinogen Norm mg/dL (Negative) 01/15/24 19:40 Ur Leukocyte Esterase Negative (Negative) 01/15/24 19:40 All radiology interpretation(s) finalized by discharge EKG Data EKG 1: Interpretation: Twelve-lead EKG obtained at 1802 and reviewed at 1803 demonstrates sinus rhythm with significant motion artifact, ventricular rate 87 bpm, ME interval 195, QRS duration 78, QT 364, QTc [address] elevation or depression to demonstrate acute ischemia or infarction at present. Discharge Plan Discharge Patient Disposition: Home Clinical Impression: Edema due to congestive heart failure, Atypical chest pain, Anxiety about health Condition: Stable Prescriptions: No Action (DME) compressor, for nebulizer Device See Rx Instructions .Route Qty: 1 0RF Rx Instructions: As directed (DME) nebulizer accessories Misc See Rx Instructions .Route Qty: 1 0RF Rx Instructions: As directed (DME) Lift chair See Rx Instructions .Route .MEDSUPPLY Qty: 1 0RF Rx Instructions: Unable to get up from sitting to standing and lives alone. tramadol 50 mg tablet 50 mg PO Q8H PRN (Reason: pain) Qty: 90 0RF hydrocortisone 1 % cream 1 applic topical DAILY PRN (Reason: rash) Qty: 28.4 0RF albuterol sulfate 90 mcg/actuation HFA aerosol inhaler See Rx Instructions .ROUTE .COMPLEX Qty: 18 4RF Dose Instruction: INHALE 1 PUFF INTO LUNGS FOUR TIMES DAILY NEEDED FOR SHORTNESS OF BREATH OR WHEEZING Rx Instructions: INHALE 1 PUFF INTO LUNGS FOUR TIMES DAILY NEEDED FOR SHORTNESS OF BREATH OR WHEEZING rizatriptan [Maxalt] 10 mg tablet See Rx Instructions PO .COMPLEX Qty: 14 3RF Rx Instructions: take 1 tab at onset of headache; if no relief may repeat 1 tab after at least 2 hrs; max = 2 tabs/24 hr PO budesonide-formoterol [Symbicort] 160-4.5 mcg/actuation HFA aerosol inhaler See Rx Instructions .ROUTE .COMPLEX PRN (Reason: copd) Qty: 10.2 0RF Dose Instruction: INHALE 2 PUFFS INTO LUNGS TWICE DAILY Rx Instructions: INHALE 2 PUFFS INTO LUNGS TWICE DAILY PRN; ipratropium-albuterol 0.5 mg-3 mg(2.5 mg base)/3 mL solution for nebulization See Rx Instructions .ROUTE .COMPLEX Qty: 180 2RF Dose Instruction: INHALE THE CONTENTS OF ONE VIAL PER NEBULIZER THREE TIMES DAILY Rx Instructions: INHALE THE CONTENTS OF ONE VIAL PER NEBULIZER THREE TIMES DAILY albuterol sulfate 2.5 mg /3 mL (0.083 %) solution for nebulization 2.5 mg inhalation QID PRN (Reason: shortness of breath or wheezing) Qty: 180 5RF azelastine 137 mcg (0.1 %) aerosol,spray See Rx Instructions .ROUTE .COMPLEX Qty: 30 4RF Dose Instruction: USE 1 SPRAY IN EACH NOSTRIL TWICE DAILY Rx Instructions: USE 1 SPRAY IN EACH NOSTRIL TWICE DAILY Atrovent HFA 17 mcg/actuation HFA aerosol inhaler See Rx Instructions .ROUTE .COMPLEX Qty: 12.9 0RF Dose Instruction: INHALE 2 PUFFS INTO LUNGS FOUR TIMES DAILY NEEDED FOR SHORTNESS OF BREATH Rx Instructions: INHALE 2 PUFFS INTO LUNGS FOUR TIMES DAILY NEEDED FOR SHORTNESS OF BREATH metoprolol succinate 25 mg tablet extended release 24 hr 25 mg PO DAILY Qty: 30 3RF amoxicillin-pot clavulanate 875-125 mg tablet 1 tab PO BID Qty: 14 0RF potassium chloride [Klor-Con 10] 10 mEq tablet extended release 10 meq PO DAILY 30 Days Qty: 30 3RF furosemide 40 mg tablet See Rx Instructions .ROUTE .COMPLEX Qty: 30 2RF Dose Instruction: TAKE ONE TABLET BY MOUTH EVERY MORNING Rx Instructions: TAKE ONE TABLET BY MOUTH EVERY MORNING cyanocobalamin (vitamin B-12) 1,000 mcg/mL solution See Rx Instructions .ROUTE .COMPLEX Qty: 3 2RF Dose Instruction: INJECT ONE ML INTRAMUSCULARLY MONTHLY Rx Instructions: INJECT ONE ML INTRAMUSCULARLY MONTHLY (DME) BD Luer-Thai Syringe 3 mL 25 gauge x 1 syringe See Rx Instructions .ROUTE .COMPLEX Qty: 20 3RF Dose Instruction: USE WITH BI2 INJECTION EVERY 14 DAYS Rx Instructions: USE WITH BI2 INJECTION EVERY 14 DAYS pantoprazole 40 mg tablet,delayed release (DR/EC) See Rx Instructions .ROUTE .COMPLEX Qty: 90 0RF Dose Instruction: TAKE ONE TABLET BY MOUTH DAILY Rx Instructions: TAKE ONE TABLET BY MOUTH DAILY duloxetine 60 mg capsule,delayed release(DR/EC) See Rx Instructions .ROUTE .COMPLEX Qty: 180 0RF Dose Instruction: TAKE ONE CAPSULE BY MOUTH TWICE DAILY Rx Instructions: TAKE ONE CAPSULE BY MOUTH TWICE DAILY topiramate 50 mg tablet See Rx Instructions .ROUTE .COMPLEX Qty: 180 0RF Dose Instruction: TAKE ONE TABLET BY MOUTH TWICE DAILY Rx Instructions: TAKE ONE TABLET BY MOUTH TWICE DAILY trazodone 150 mg tablet See Rx Instructions .ROUTE .COMPLEX Qty: 90 1RF Dose Instruction: TAKE ONE TABLET BY MOUTH AT BEDTIME Rx Instructions: TAKE ONE TABLET BY MOUTH AT BEDTIME clonazepam 1 mg tablet,disintegrating 1 mg PO BID Qty: 60 2RF aripiprazole [Abilify] 10 mg tablet 10 mg PO DAILY Qty: 30 3RF tizanidine 4 mg tablet 8 mg PO Q8H PRN (Reason: muscle spasticity) Qty: 180 0RF potassium chloride 10 mEq tablet extended release 10 meq PO DAILY Qty: 20 2RF levothyroxine 88 mcg tablet 88 mcg PO DAILY Qty: 30 2RF Rx Instructions: dose change promethazine 25 mg tablet See Rx Instructions .ROUTE .COMPLEX Qty: 30 1RF Dose Instruction: TAKE ONE TABLET BY MOUTH EVERY 6 HOURS NEEDED FOR NAUSEA AND VOMITING Rx Instructions: TAKE ONE TABLET BY MOUTH EVERY 6 HOURS NEEDED FOR NAUSEA AND VOMITING aspirin 81 mg Tablet,Delayed Release (Dr/Ec) 81 mg PO DAILY 30 Days Qty: 30 0RF sucralfate 100 mg/mL Suspension 1 g PO BID 30 Days Qty: 600 0RF clopidogrel 75 mg Tablet 75 mg PO DAILY 30 Days Qty: 30 0RF nitroglycerin 0.4 mg Tablet, Sublingual 0.4 mg sublingual Q5M PRN (Reason: Chest Pain) 30 Days Qty: 30 0RF Venofer 200 mg iron/10 mL solution 200 mg IV EVERY OTHER DAY Qty: 40 0RF Rx Instructions: administer over 2-5 mins Protonix 40 mg tablet,delayed release (DR/EC) 40 mg PO BID 30 Days Qty: 60 0RF atorvastatin 40 mg tablet 40 mg PO DAILY 30 Days Qty: 30 0RF Discharge Orders: Discharge ED (Routine); Ordered 01/15/24 Ordered By: Krish Mullen Referrals: Soheila Devlin MD [Primary Care Provider] - Discharge Diet: Cardiac and Low Salt Discharge Activity: Resume usual activity Patient Instructions: Opioid Safety, Pain Management Activity Restrictions/Additional Instructions: Activity Restrictions/Additional Instructions: Thank you for choosing [facility] for your healthcare needs today. Please realize that you were seen in the Emergency Department and that we are providing you with an emergency medical screening exam and this may not be a complete and all inclusive of all the testing and or medical work-up that you may need to determine your ailment or severity of your illness. It is very important that you follow-up as instructed with your Primary care provider or Specialist for additional evaluation and to discuss your medical treatment plan. Coding Level of Care Code ED [employer] for Mahi Capps
[2024-01-15 19:44] VITALS: BP 116/67; PULSE 80; RESP 16; O2SAT 98
[2024-01-15 19:49] LABS: Add Urine Microscopic? NO; Charge for UA Resulting for Rev
[2024-01-15 19:50] LABS: INR 1.02 (0.8-1.2)
[2024-01-15 19:53] LABS: Bilirubin Urine Neg (Negative); Blood Urine Neg (Negative); Glucose Urine UA Norm (Normal); Ketones Urine Negative (Negative); Leukocyte Esterase Urine Negative (Negative); Nitrate Urine Negative (Negative); Protein Urine Neg (Negative); Specific Gravity, Urine 1.005 (1.005-1.030); Urine Appearance Clear (CLEAR); Urine Color Colorless (Yellow); Urobilinogen Urine Norm (Negative); pH Urine 7 (5-7)
[2024-01-15 19:57] LABS: Troponin(5th) Baseline 24 ng/L (0-10)
[2024-01-15 20:05] LABS: Alanine Aminotransferase 14 U/L (0-33); Albumin Level 3.9 g/dL (3.5-5.2); Alkaline Phosphatase 99 U/L (35-105); Anion Gap 14.3 (5-19); Aspartate Amino Transferase 23 U/L (0-32); Blood Urea Nitrogen 19 mg/dL (8-23); Calcium 8.6 mg/dL (8.5-10.5); Carbon Dioxide 24 mmol/L (22-29); Chloride 105 mmol/L (98-107); Creatinine Clr Calc Pharmacy 37.3723; Globulin 1.7 g/dL (1.3-4.6); Glomerular Filtration Rate 44.5 mL/min (90-130); Glucose 92 mg/dL (65-115); NT Pro B Type Natriuretic Pept 2410 pg/mL (0-125); Osmolality Calculated 290 mOsm/kg (285-295); Potassium 4.3 mmol/L (3.5-5.1); Sodium 139 mmol/L (136-145); Total Bilirubin 0.2 mg/dL (0.15-1.2); Total Protein 5.6 g/dL (6.6-8.7)
[2024-01-15 20:12] VITALS: PULSE 82; RESP 16; O2SAT 99
[2024-01-15] MEDS: bumetanide 0.25 mg/mL SDV 4 mL 2 MG IVP (20:45)
[2024-01-15 20:54] VITALS: BP 105/60; PULSE 82; RESP 16; O2SAT 98
[2024-01-15 21:44] VITALS: BP 114/57; PULSE 82; RESP 16; O2SAT 96
[2024-01-15 21:47] LABS: Troponin 5 2HR 23.91 ng/L (0-10)
[2024-01-15 21:48] LABS: Troponin 5 2HR Delta -0.09 ABS# (0-10)
[2024-01-15 23:02] VITALS: BP 114/57; PULSE 82; RESP 16; TEMP 36.6; O2SAT 96
== END 2024-01-15 23:03 | disposition home or self-care (01) ==
PROVIDERS: Emergency Provider Internal Medicine; PCP Family Medicine
DX: I13.0 Hypertensive heart and chronic kidney disease with heart failure and stage 1 through stage 4 chronic kidney disease, or unspecified chronic kidney disease (principal); N18.30 Chronic kidney disease, stage 3 unspecified; I50.9 Heart failure, unspecified; R60.9 Edema, unspecified; R07.89 Other chest pain; F41.9 Anxiety disorder, unspecified; Z79.02 Long term (current) use of antithrombotics/antiplatelets; Z79.82 Long term (current) use of aspirin; J44.9 Chronic obstructive pulmonary disease, unspecified
CPT/HCPCS: 36415; 71045; 80053; 81003; 83880; 84484; 85025; 85610; 93005; 96374; 99285; J3490

== ENCOUNTER 2024-01-25 09:23 | Emergency (ER) | payer MEDICARE, MEDICAID, SELFPAY ==
--- NOTE | 2024-01-25 09:24 | XR_ITS ---
WS: [id number] Exam: XR chest 1V portable [id number] Date/Time of Exam: 01/25/2024 9:34 AM Reason For Exam: dyspnea/cough Comparison 01/15/2024. The lungs are fully inflated and clear. Cardiomediastinal silhouette is unremarkable for technique. M oderate thoracolumbar dextroscoliosis. No pleural effusion. Several old bilateral rib fractures. IMPRESSION: 1. No acute cardiopulmonary finding. No change.
[2024-01-25 09:28] VITALS: BP 95/59; PULSE 70; RESP 18; TEMP 36.4; O2SAT 100; BMI 21.5
--- NOTE | 2024-01-25 09:32 | ECG_ITS ---
[facility] Test Date: 2024-01-25 Pat Name: Nereida Samuels Department: Room: Gender: Female Web Engineer: : 1955 Requested By: Rico Salinas Order Number: [id number] Shawn MD: Tyron Cortes M.D. Measurements Intervals [place] Rate: 67 P: 74 PA: 239 QRS: 70 QRSD: 80 T: 74 QT: 428 QTc: 453 Interpretive Statements SINUS RHYTHM WITH FIRST DEGREE AV BLOCK Compared to ECG 01/15/2024 18:02:28 First degree AV block now present T-wave abnormality no longer present Electronically Signed On 01-25-2024 11:25:40 CDT by Tyron Cortes M.D. [id number]
[2024-01-25 09:33] VITALS: PULSE 68; RESP 18; O2SAT 100
[2024-01-25 09:41] LABS: Basophils # 0.1 10^3/uL (0.0-0.1); Basophils % 0.9 %; Eosinophils # 0.2 10^3/uL (0.0-0.8); Eosinophils % 3.5 %; Hematocrit 33.9 % (36-47); Lymphocytes # 1.2 10^3/uL (0.8-4.8); Mean Corpuscular HGB Conc 29.2 g/dL (30-55); Mean Corpuscular Hemoglobin 25.1 pg (27-33); Mean Corpuscular Volume 85.8 fl (85-98); Mean Platelet Volume 11.4 fL (7.4-10.4); Monocytes # 0.5 10^3/uL (0.2-0.9); Monocytes % 7.9 %; Neutrophils # 4.34 10^3/uL (1.8-7.7); Neutrophils % 68.2 %; Nucleated Red Blood Cells % 0 %; Platelet Count 226 10^3/cmm (157-399); Red Blood Count 3.95 10^6/uL (3.85-5.65); Red Cell Distribution Width 17.8 % (12.1-15.1); White Blood Count 6.36 10^3/uL (3.29-11.43)
--- NOTE | 2024-01-25 09:48 | W.ED.GENADLT ---
HPI - General Adult General: Chief complaint: General Medical Stated complaint: Weakness Time Seen by Provider: 01/25/24 09:24 Source: patient Mode of arrival: ambulatory History of Present Illness: 68-year-old female presents emergency room after being in the transfusion center for an iron infusion. Her blood pressure was low when she was directed here. She is essentially asymptomatic. She usually checks her blood pressure before taking her medications in the morning but did not this morning. She states she has had episodes in the past her blood pressure is transiently dropped after taking medication she usually just drinks more fluids and is able to manage it on her own. She denies any hematochezia melena hematemesis or coffee-ground emesis. Her iron deficiency anemia is thought to be secondary to poor absorption after bariatric surgery which was done 20+ years ago. Associated symptoms: Deny chest pain, dyspnea or rash Review of Systems Const: Denies: fever(s) or chills Card: Denies: chest pain Resp: Denies: dyspnea GI: Denies: abdominal pain : Denies: dysuria, urinary frequency or urinary urgency Musc: Denies: neck pain or back pain Skin/Breast: Denies: rash PFSH ED PFSH: Medical History CKD (chronic kidney disease) stage 3, GFR 30-59 ml/min Syncope and collapse COPD (chronic obstructive pulmonary disease) Moderate pulmonary hypertension Lyme disease Fibromyalgia Scoliosis GERD without esophagitis Mandibular fracture Fractured sternum Environmental and seasonal allergies Vitamin B12 deficiency Migraines Hypothyroidism Anxiety and depression Surgical History Hx of knee surgery Hx of shoulder surgery Hx of hysterectomy Hx of appendectomy History of back surgery History of surgery on wrist Family History Father Diabetes Hypertension Sister Diabetes Hypertension Other Lung disease Social History Smoking and tobacco/nicotine status: never used tobacco/nicotine Second hand smoke exposure: No Alcohol intake: never Substance/Drug Use: never Adopted: No Caregiver/support person: No Lives independently: Yes Household members: none Housing: House Marital status: / Number of children: 2 Number of grandchildren: 3 Highest education level completed: Master's Degree service: No Current occupational status: retired Pets and animals: Yes Do you think of yourself as: Straight/Heterosexual Current gender identity: Female Physical Exam Const: COMMON NORMALS: no acute distress GENERAL APPEARANCE: cooperative and comfortable ORIENTATION/CONSCIOUSNESS: Yes awake, Yes oriented to person, Yes oriented to place and Yes oriented to time HENMT: COMMON NORMALS: normocephalic, atraumatic and hearing grossly normal bilaterally HEAD & SCALP: normocephalic and atraumatic Resp: COMMON NORMALS: normal respiratory effort, No retractions, No use of accessory muscles and clear to auscultation bilaterally AUSCULTATION: clear to auscultation bilaterally Cardio: COMMON NORMALS: regular rate, regular rhythm and No murmurs present (Cardio) RATE: regular rate RHYTHM: regular rhythm GI: COMMON NORMALS: Soft to palpation and No hepatosplenomegaly present AUSCULTATION: Yes normoactive bowel sounds PALPATION: Yes Soft to palpation, No Tenderness to palpation present (GI), No Guarding due to palpation present (GI) and Yes No hepatosplenomegaly present Extremity: COMMON NORMALS: normal to inspection, capillary refill normal, no clubbing, cyanosis or edema, no calf tenderness and no pedal edema Neuro: SENSORIUM/ORIENTATION: Yes oriented to person, Yes oriented to place and Yes oriented to time Skin: COMMON NORMALS: no rashes or lesions noted GENERAL SKIN EXAM: no rashes or lesions noted Course Vital Signs: Vital signs: Vital Signs Temperature 97.6 F 01/25/24 09:28 Pulse Rate 68 01/25/24 09:33 Respiratory Rate 18 01/25/24 09:33 Blood Pressure 116/60 01/25/24 11:19 Pulse Oximetry 100 01/25/24 09:33 Oxygen Delivery Me thod Room Air 01/25/24 09:33 MDM - General Adult Medical Decision Making Mild acute kidney injury. Blood pressure improved with IV fluids patient is feeling much better discharged home with switch from losartan hydrochlorothiazide to plain losartan. Follow-up with primary care later this week to recheck blood pressure. Patient referred back to the oncology center to complete her iron infusion. Medical Records I reviewed the patient's medical records. Lab Data I reviewed the patient's lab results. 01/25/24 09:28 01/25/24 09:28 Laboratory Results WBC 6.36 10^3/uL (3.29-11.43) 01/25/24 09: RBC 3.95 10^6/uL (3.85-5.65) 01/25/24 09: Hgb 9.90 g/dL (11.27-16.99) L 01/25/24 09: Hct 33.9 % (36-47) L 01/25/24: MCV 85.8 fl (85-98) 01/25/24 09: MCH 25.1 pg (27-33) L 01/25/24 09: MCHC 29.2 g/dL (30-55) L 01/25/24 09: RDW 17.8 % (12.1-15.1) H 01/25/24 09: Plt Count 226 10^3/cmm (157-399) 01/25/24 09: MPV 11.4 fL (7.4-10.4) H 01/25/24 09: Neut % (Auto) 68.2 % 01/25/24 09: Lymph % (Auto) 19.0 % 01/25/24 09: Ramsey % (Auto) 7.9 % 01/25/24 09: Eos % (Auto) 3.5 % 01/25/24: Baso % (Auto) 0.9 % 01/25/24: Neut # (Auto) 4.34 10^3/uL (1.8-7.7) 01/25/24 09: Lymph # (Auto) 1.2 10^3/uL (0.8-4.8) 01/25/24 09: Ramsey # (Auto) 0.5 10^3/uL (0.2-0.9) 01/25/24 09: Eos # (Auto) 0.2 10^3/uL (0.0-0.8) 01/25/24 09: Baso # (Auto) 0.1 10^3/uL (0.0-0.1) 01/25/24 09: Nucleated RBC % (auto) 0 % 01/25/24: Nucleated RBCs # 0.0 /100WBC 01/25/24 09:28 Sodium 137 mmol/L (136-145) 01/25/24 09:28 Potassium 4.3 mmol/L (3.5-5.1) 01/25/24 09:28 Chloride 101 mmol/L (98-107) 01/25/24 09:28 Carbon Dioxide 26 mmol/L (22-29) 01/25/24 09:28 Anion Gap 14.3 (5-19) 01/25/24 09:28 BUN 26 mg/dL (8-23) H 01/25/24 09:28 Creatinine 1.4 mg/dL (0.5-0.9) H 01/25/24 09:28 GFR Calculation 37.3 mL/min (90-130) L 01/25/24 09:28 Glucose 99 mg/dL (65-115) 01/25/24 09:28 Calculated Osmolality 289 mOsm/kg (285-295) 01/25/24 09:28 Calcium 8.7 mg/dL (8.5-10.5) 01/25/24 09:28 Total Bilirubin 0.2 mg/dL (0.15-1.2) 01/25/24 09:28 AST 20 U/L (0-32) 01/25/24 09:28 ALT 11 U/L (0-33) 01/25/24 09:28 Alkaline Phosphatase 102 U/L (35-105) 01/25/24 09:28 Total Protein 5.9 g/dL (6.6-8.7) L 01/25/24 09:28 Albumin 3.9 g/dL (3.5-5.2) 01/25/24 09:28 Globulin 2.0 g/dL (1.3-4.6) 01/25/24 09:28 All radiology interpretation(s) finalized by discharge Discharge Plan Discharge Patient Disposition: Home Clinical Impression: Hypotension, Chronic iron deficiency anemia Condition: Stable Prescriptions: No Action (DME) compressor, for nebulizer Device See Rx Instructions .Route Qty: 1 0RF Rx Instructions: As directed (DME) nebulizer accessories Misc See Rx Instructions .Route Qty: 1 0RF Rx Instructions: As directed (DME) Lift chair See Rx Instructions .Route .MEDSUPPLY Qty: 1 0RF Rx Instructions: Unable to get up from sitting to standing and lives alone. tramadol 50 mg tablet 50 mg PO Q8H PRN (Reason: pain) Qty: 90 0RF hydrocortisone 1 % cream 1 applic topical DAILY PRN (Reason: rash) Qty: 28.4 0RF rizatriptan [Maxalt] 10 mg tablet See Rx Instructions PO .COMPLEX Qty: 14 3RF Rx Instructions: take 1 tab at onset of headache; if no relief may repeat 1 tab after at least 2 hrs; max = 2 tabs/24 hr PO albuterol sulfate 2.5 mg /3 mL (0.083 %) solution for nebulization 2.5 mg inhalation QID PRN (Reason: shortness of breath or wheezing) Qty: 180 5RF (DME) BD Luer-Thai Syringe 3 mL 25 gauge x 1 syringe See Rx Instructions .ROUTE .COMPLEX Qty: 20 3RF Dose Instruction: USE WITH BI2 INJECTION EVERY 14 DAYS Rx Instructions: USE WITH BI2 INJECTION EVERY 14 DAYS Venofer 200 mg iron/10 mL solution 200 mg IV EVERY OTHER DAY Qty: 40 0RF Rx Instructions: administer over 2-5 mins sucralfate 100 mg/mL Suspension 1 g PO BID 30 Days Qty: 600 0RF pantoprazole [Protonix] 40 mg tablet,delayed release (DR/EC) 40 mg PO BID 30 Days Qty: 60 0RF Nitrostat 0.4 mg Tablet, Sublingual 0.4 mg SUBLINGUAL Q5M PRN (Reason: Chest Pain) Rx Instructions: do not exceed 3 doses per episode furosemide 40 mg tablet 40 mg PO QAM atorvastatin 40 mg tablet 40 mg PO QAM ipratropium-albuterol 0.5 mg-3 mg(2.5 mg base)/3 mL solution for nebulization 3 ml inhalation TID PRN (Reason: unknown) clopidogrel 75 mg tablet 75 mg PO QAM aspirin 81 mg tablet,delayed release (DR/EC) 81 mg PO QAM levothyroxine 88 mcg tablet 88 mcg PO QAM Rx Instructions: dose change cyanocobalamin (vitamin B-12) 1,000 mcg/mL solution 1,000 mcg IM Q30D metoprolol succinate 25 mg tablet extended release 24 hr 12.5 - 25 mg PO QAM azelastine 137 mcg (0.1 %) aerosol,spray 1 spray intranasal BID PRN (Reason: unknown) albuterol sulfate 90 mcg/actuation HFA aerosol inhaler 1 puff inhalation QID PRN (Reason: Shortness Of Breath) Abilify 10 mg tablet 5 mg PO QAM clonazepam 1 mg tablet,disintegrating 1 mg PO BID PRN (Reason: Anxiety) duloxetine 60 mg capsule,delayed release(DR/EC) 60 mg PO BID Atrovent HFA 17 mcg/actuation HFA aerosol inhaler 2 puff inhalation QID PRN (Reason: Shortness Of Breath) Symbicort 160-4.5 mcg/actuation HFA aerosol inhaler 2 puff inhalation BID PRN (Reason: copd) cholecalciferol (vitamin D3) 1,250 mcg (50,000 unit) capsule 50,000 unit PO Q7D Rx Instructions: on thursday tizanidine 4 mg tablet 4 - 8 mg PO Q8H PRN (Reason: muscle spasticity) Klor-Con 10 10 mEq tablet extended release 10 meq PO QAM trazodone 150 mg tablet 75 - 150 mg PO BEDTIME promethazine 25 mg tablet 25 mg PO Q6H PRN (Reason: Nausea And Vomiting) topiramate 50 mg tablet 50 mg PO QAM Discharge Orders: Discharge ED (Routine); Ordered 01/25/24 Ordered By: Rico Corea Referrals: Soheila Devlin MD [Primary Care Provider] - Discharge Diet: Usual diet Discharge Activity: Resume usual activity Patient Instructions: Opioid Safety, Pain Management Activity Restrictions/Additional Instructions: Thank you for choosing [facility] for your healthcare needs today. Please realize this is an emergency room and that we are providing you with a medical screening exam and this may not be complete and all inclusive of all the testing and or work up that you may need to determine your ailment or severity of your illness. It is very important that you follow up as instructed or that you return to the Emergency Department should you have concerns or if your condition changes or worsens in any way. Return to the cancer center to complete your iron infusion. Recommend decreasing your Lasix to 20 mg daily and follow-up with your primary care doctor within the next week. Coding Level of Care Code ED Music Assistant for Mahi Capps
[2024-01-25 09:52] LABS: Alanine Aminotransferase 11 U/L (0-33); Albumin Level 3.9 g/dL (3.5-5.2); Alkaline Phosphatase 102 U/L (35-105); Anion Gap 14.3 (5-19); Aspartate Amino Transferase 20 U/L (0-32); Blood Urea Nitrogen 26 mg/dL (8-23); Calcium 8.7 mg/dL (8.5-10.5); Carbon Dioxide 26 mmol/L (22-29); Chloride 101 mmol/L (98-107); Creatinine Clr Calc Pharmacy 29.5547; Glomerular Filtration Rate 37.3 mL/min (90-130); Glucose 99 mg/dL (65-115); Osmolality Calculated 289 mOsm/kg (285-295); Potassium 4.3 mmol/L (3.5-5.1); Sodium 137 mmol/L (136-145); Total Bilirubin 0.2 mg/dL (0.15-1.2); Total Protein 5.9 g/dL (6.6-8.7)
[2024-01-25] MEDS: sodium chloride 0.9% 500 ML 999 ML IV ×2 (10:06→10:50)
[2024-01-25 10:07] VITALS: BP 106/50
--- NOTE | 2024-01-25 10:21 | PC.PHAR ---
pt states she takes care of her own medications-pt states she takes abilify 10mg takes one half tab (5mg) po qam ext shows last filled 01/07/24 30d/s 10mg daily-pt states she takes her clonazepam 1mg bid prn rx filled 01/07/24 30d/s 1mg bid-pt states still taking cymbalta 60mg bid ext shows last filled 09/16/24 90d/s-pt states takes metoprolol succinate er 25mg takes 12.5mg to 25mg po qam ext shows filled 01/14/24 30d/s 25mg po qam-pt states takes topiramate 50mg po qam ext shows last filled 09/16/24 90d/s 50mg bid-notes are made in the pharmacy comments
[2024-01-25 11:19] VITALS: BP 116/60
== END 2024-01-25 11:42 | disposition home or self-care (01) ==
PROVIDERS: Emergency Provider Family Medicine; PCP Family Medicine
DX: I95.9 Hypotension, unspecified (principal); D50.8 Other iron deficiency anemias; Z79.02 Long term (current) use of antithrombotics/antiplatelets; Z79.82 Long term (current) use of aspirin; N18.30 Chronic kidney disease, stage 3 unspecified; J44.9 Chronic obstructive pulmonary disease, unspecified; D64.9 Anemia, unspecified
CPT/HCPCS: 71045; 80053; 85025; 93005; 96360; 96365; 99285; J1756; J7040

== ENCOUNTER 2024-01-29 09:00 | Oncology outpatient (recurring) (ONCR) | payer MEDICARE, MEDICAID, SELFPAY ==
--- NOTE | 2024-01-22 09:11 | PC.NURSE ---
Venofer orders from Dr. Ferguson are date specific for pt. Dates were at the beginning of December. Called Soheila Devlin MD, pts primary care physician. Spoke with nurse Tovar. She spoke with Dr. Devlin regarding pts orders. Verbal order given, Dr. Devlin does want pt to receive last four doses of venofer. She will update pts chart with correct orders. JW
[2024-01-22 09:17] VITALS: BP 107/63; PULSE 89; RESP 17; TEMP 37.1
--- NOTE | 2024-01-22 09:19 | PC.NURSE ---
O2 Sat% unable to obtain O2 Sat% on patient
[2024-01-22 09:21] VITALS: BMI 23.2
[2024-01-22] MEDS: iron sucrose 200 MG in sodium chloride 0.9% (100 ml) 100 ML 220 MG IV (09:35)
[2024-01-25 08:51] VITALS: BP 64/38; PULSE 68; RESP 16; TEMP 36; O2SAT 97
--- NOTE | 2024-01-25 08:55 | PC.NURSE ---
patient states she took her BP medication this morning, fatigued but no other symptoms, HR and 02 WNL.
[2024-01-25 09:15] VITALS: BP 64/38
[2024-01-25] MEDS: iron sucrose 200 MG in sodium chloride 0.9% (100 ml) 100 ML 220 MG IV (11:49)
[2024-01-25 12:40] VITALS: BP 112/68; PULSE 58; RESP 16; TEMP 36.2; O2SAT 90
[2024-01-27 08:44] VITALS: BP 112/50; PULSE 82; RESP 16; TEMP 36.4; O2SAT 99
[2024-01-27] MEDS: iron sucrose 200 MG in sodium chloride 0.9% (100 ml) 100 ML 220 MG IV (09:27)
[2024-01-27 10:15] VITALS: BP 106/61; PULSE 73; RESP 17; O2SAT 98
[2024-01-29 09:07] VITALS: BP 87/53; PULSE 70; RESP 17; TEMP 36.3; O2SAT 98
[2024-01-29] MEDS: iron sucrose 200 MG in sodium chloride 0.9% (100 ml) 100 ML 220 MG IV (09:31)
[2024-01-29 10:04] VITALS: BP 102/66; PULSE 62; RESP 14; O2SAT 99
== END 2024-01-31 23:59 | disposition home or self-care (01) ==
PROVIDERS: PCP Family Medicine; Visit Provider Family Medicine
DX: Z53.9 Procedure and treatment not carried out, unspecified reason (principal); D64.9 Anemia, unspecified
CPT/HCPCS: 96365; J1756

== ENCOUNTER → 2024-02-04 13:50 | Outpatient (BNVA) | payer MEDICARE, MEDICAID, SELFPAY | PROVIDERS: PCP Family Medicine; Visit Provider Nurse Practitioner Family | DX: I25.10 Atherosclerotic heart disease of native coronary artery without angina pectoris (principal) | CPT/HCPCS: 99214 ==

== ENCOUNTER → 2024-03-10 12:54 | Outpatient (BNVA) | payer MEDICARE, MEDICAID, SELFPAY | PROVIDERS: PCP Family Medicine; Visit Provider Family Medicine | DX: R30.0 Dysuria (principal); J96.01 Acute respiratory failure with hypoxia; E03.9 Hypothyroidism, unspecified; D64.9 Anemia, unspecified | CPT/HCPCS: 81000; 82728; 83540; 84443; 85025; 87077; 87086; 87184 ==

== ENCOUNTER → 2024-04-28 09:20 | Outpatient (BNVA) | payer OTHER, MEDICAID, SELFPAY | PROVIDERS: PCP Family Medicine; Visit Provider Family Medicine | DX: N18.30 Chronic kidney disease, stage 3 unspecified (principal); D50.9 Iron deficiency anemia, unspecified | CPT/HCPCS: 80053; 85025 ==

== ENCOUNTER 2024-05-04 09:22 | Outpatient (CLI) | payer OTHER, MEDICAID, SELFPAY ==
--- NOTE | 2024-05-04 09:29 | MR_ITS ---
WS: [id number] MRI neck without gadolinium enhancement. INDICATION: Neck lump TECHNIQUE: Axial T1, axial T2, coronal T1, coronal STIR, sagittal STIR FINDINGS: No abnormalities in the area of palpable concern in the upper neck. Deep to the palpable ma rkers are normal-appearing bilateral submandibular glands. No cervical lymphadenopathy. No evidence o f supraglottic or glottic mass. Parotid glands are normal. Normal posterior nasopharynx. Normal epigl ottis. Normal piriform sinuses. Normal vallecula. Mastoid air cells appear well aerated. Exaggeration of the normal cervical lordosis. Moderate spondylitic changes cervical spine. Susceptibly artifact f rom mandibular hardware. Secretions in the LEFT maxillary sinus. MR/[place] [id number] IMPRESSION: 1. No abnormalities in the area of palpable concern. Deep to the palpable chelita ers are normal-appearing submandibular glands. 2. No evidence of supraglottic or glottic mass. 3. No other acute findings.
--- NOTE | 2024-05-04 09:29 | CT_ITS ---
WS: [id number] CT facial bones wo con* [id number] REASON FOR EXAM: LOCALIZED SWELLING,MASS, LUMP, NECK IV CONTRAST ADMINISTERED: None. TOTAL EXAM DLP: 612.[address] scans at [facility] use at least one of these dose optimization techniques: automat ed exposure control; mA and/or kV adjustment per patient size (includes targeted exams where dose is matched to clinical indication); or iterative reconstruction. FINDINGS: Multiple thin axial images with coronal and sagittal reconstructions. Examination reviewed at soft ti ssue and bone window. Previous surgical alteration or fracture of the mandible with plate and screw fixations. There is ext ensive artifact from the fixation devices however the anterior mandible appears intact. 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 The maxilla and maxillary arches are normal. There are retained secretions in the left maxillary sinu s. The base of the skull and temporal bones are normal. CT/CT facial bones wo con* [id number] IMPRESSION: No acute abnormality. Previous internal fixation of the anterior mandible. Hypoplasia of the right mandibular condyle.
== END 2024-05-04 09:23 | disposition home or self-care (01) ==
LOC: RAD 09:23
PROVIDERS: PCP Family Medicine; Visit Provider Specialist
DX: R22.1 Localized swelling, mass and lump, neck (principal); M26.04 Mandibular hypoplasia; M47.812 Spondylosis without myelopathy or radiculopathy, cervical region; Z96.698 Presence of other orthopedic joint implants
CPT/HCPCS: 70336; 70486

== ENCOUNTER → 2024-06-16 11:31 | Outpatient (BNVA) | payer OTHER, MEDICAID, SELFPAY | PROVIDERS: PCP Family Medicine; Visit Provider Family Medicine | DX: E03.9 Hypothyroidism, unspecified (principal); E53.8 Deficiency of other specified B group vitamins; W55.03XA Scratched by cat, initial encounter; D64.9 Anemia, unspecified; D50.9 Iron deficiency anemia, unspecified; X58.XXXA Exposure to other specified factors, initial encounter | CPT/HCPCS: 80053; 80061; 82607; 82728; 84443; 85025 ==

== ENCOUNTER → 2024-10-04 14:06 | Outpatient (BNVA) | payer OTHER, MEDICAID, SELFPAY | PROVIDERS: PCP Family Medicine; Visit Provider Nurse Practitioner Family | DX: R30.0 Dysuria (principal); D64.9 Anemia, unspecified | CPT/HCPCS: 81000; 85018 ==

== ENCOUNTER 2024-11-02 12:14 | Emergency (ER) | payer MEDICARE, MEDICAID, SELFPAY ==
--- NOTE | 2024-11-02 12:25 | ECG_ITS ---
[facility] 2024-[facility]02 Pat Name: Nereida Juarez Department: Room: Gender: Female Salon Shampoo Assistant: : 1955 Requested By: Zana Ramirez Order Number: [id number] Shawn MD: Tyron Cortes M.D. Measurements Intervals [place] Rate: 92 P: 66 PA: 160 QRS: 45 QRSD: 69 T: 40 QT: 343 QTc: 425 Interpretive Statements SINUS RHYTHM NONSPECIFIC T-WAVE ABNORMALITY No previous ECG available for comparison Electronically Signed On 11-03-2024 12:29:26 DIRECTOR PROSPECT by Tyron Cortes M.D. [email or web address]
--- NOTE | 2024-11-02 12:25 | XRR_ITS ---
PROCEDURE INFORMATION: Exam: XR Chest Exam date and time: 11/02/2024 12:05 PM Age: 69 years old Clinical indication: Shortness of breath; Additional info: SOB TECHNIQUE: Imaging protocol: Radiologic exam of the chest. Views: 1 view. COMPARISON: CR XR chest 1V portable [id number] 01/25/2024 9:34 AM FINDINGS: Lungs: No focal consolidation. Emphysematous changes. Pleural spaces: No evidence of pneumothorax. No evidence of pleural effusion. Heart/Mediastinum: Cardiomediastinal silhouette is within normal limits. Bones/joints: No evidence of acute osseous abnormality. XR/XR chest 1V portable [id number] IMPRESSION: 1. No acute cardiopulmonary abnormality. 2. Emphysematous changes.
[2024-11-02 12:46] VITALS: BP 118/75; PULSE 96; TEMP 36.9; O2SAT 99
[2024-11-02 13:54] LABS: Basophils # 0.1 10^3/uL (0.0-0.1); Basophils % 0.9 %; Eosinophils # 0.1 10^3/uL (0.0-0.8); Eosinophils % 1.5 %; Hematocrit 45.1 % (36-47); Lymphocytes # 1.8 10^3/uL (0.8-4.8); Lymphocytes % 23.2 %; Mean Corpuscular HGB Conc 31.5 g/dL (30-55); Mean Corpuscular Hemoglobin 28.7 pg (27-33); Mean Corpuscular Volume 91.1 fl (85-98); Mean Platelet Volume 10.2 fL (7.4-10.4); Monocytes # 0.5 10^3/uL (0.2-0.9); Monocytes % 5.9 %; Neutrophils % 68.1 %; Nucleated Red Blood Cells % 0 %; Platelet Count 347 10^3/cmm (157-399); Red Blood Count 4.95 10^6/uL (3.85-5.65); Red Cell Distribution Width 14.6 % (12.1-15.1); White Blood Count 7.79 10^3/uL (3.29-11.43)
[2024-11-02 14:16] LABS: Troponin(5th) Baseline 15 ng/L (0-10)
[2024-11-02 14:24] LABS: Alanine Aminotransferase 10 U/L (0-33); Albumin Level 4.3 g/dL (3.5-5.2); Alkaline Phosphatase 135 U/L (35-105); Anion Gap 16.8 (5-19); Aspartate Amino Transferase 21 U/L (0-32); Blood Urea Nitrogen 24 mg/dL (8-23); Calcium 9.8 mg/dL (8.5-10.5); Carbon Dioxide 25 mmol/L (22-29); Chloride 99 mmol/L (98-107); Creatinine Clr Calc Pharmacy 32.6485; Globulin 3.3 g/dL (1.3-4.6); Glomerular Filtration Rate 40.5 mL/min (90-130); Glucose 99 mg/dL (65-115); NT Pro B Type Natriuretic Pept < 36 pg/mL (0-125); Osmolality Calculated 288 mOsm/kg (285-295); Potassium 3.8 mmol/L (3.5-5.1); Sodium 137 mmol/L (136-145); Total Bilirubin 0.4 mg/dL (0.15-1.2); Total Protein 7.6 g/dL (6.6-8.7)
--- NOTE | 2024-11-02 15:01 | ECG_ITS ---
[facility] 2024-[facility]02 Pat Name: Nereida Juarez Department: Room: Gender: Female Database Report Writer: : 1955 Requested By: Zana Ramirez Order Number: [id number] Reading MD: Tyron Cortes M.D. Measurements Intervals [place] Rate: 87 P: 71 VA: 166 QRS: 69 QRSD: 80 T: 20 QT: 376 QTc: 454 Interpretive Statements SINUS RHYTHM WITH OCCASIONAL VENTRICULAR PREMATURE COMPLEXES Compared to ECG 11/02/2024 12:52:48 Ventricular premature complex(es) now present T-wave abnormality no longer present Electronically Signed On 11-03-2024 12:34:55 LAND AGENT by Tyron Cortes M.D. [email or web address]
[2024-11-02 15:14] VITALS: BP 117/63; PULSE 89; RESP 16; O2SAT 97
[2024-11-02 15:30] VITALS: BP 111/59; PULSE 95; RESP 16; O2SAT 98
[2024-11-02] MEDS: dexamethasone 10 mg/mL INJ 8 MG IVP (16:01)
[2024-11-02 16:04] VITALS: BP 100/47; PULSE 88; RESP 16; O2SAT 96
[2024-11-02 16:38] LABS: Covid PCR NEGATIVE (Negative); Influenza A NEGATIVE (Negative); Influenza B NEGATIVE (Negative); Respiratory Syncytial Virus Ce NEGATIVE (Negative)
[2024-11-02 17:18] LABS: Troponin 5 2HR 15.14 ng/L (0-10); Troponin 5 2HR Delta 0.14 ABS# (0-10)
[2024-11-02] MEDS: methylPREDNISolone sod succ 125 mg/2 mL INJ IVP (17:49)
[2024-11-02] MEDS: ketorolac 60 mg/2 mL INJ 30 MG IVP (17:49)
[2024-11-02 17:58] VITALS: BP 116/69; PULSE 95; RESP 16; O2SAT 98
--- NOTE | 2024-11-02 18:36 | ED_ITS ---
HPI - SOB/Dyspnea 2 General: Chief Complaint: Shortness of Breath/Dyspnea Stated Complaint: SOB Time Seen by Provider: 11/02/24 15:15 Source: patient Mode of arrival: ambulatory Limitations: no limitations History of Present Illness: HPI Narrative: Patient is a 69-year-old female with past medical history of coronary artery disease, COPD, and disseminated Lyme disease who presents to the emergency department with multiple complaints. She states that she had a 99% blockage in her maker last December, initially was feeling better but for months now has been feeling weak. States this has gotten so bad that she cannot transfer anywhere and is having worsening shortness of breath. Also states she is having chest pain rating down her left arm and states it feels similar to when she had blockage in her LAD. Also reports history of diffuse arthritis as well as fibromyalgia. As mentioned she has multiple complaints and has not been able to follow-up with primary care. 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 She uses O2 as needed at night. Denies any cough, syncope, palpitations, blood in vomit or stool, or other symptoms. Vitals normal at this time she is 99% on room air with normal blood pressure. MD elicited complaint: shortness of breath, cough and chest pain Pertinent past history: COPD and other (CAD) Onset (ago): month(s) Timing: constant and progressively worsening Severity: moderate Exacerbating factors: nothing Relieving factors: nothing Known history of: COPD Associated symptoms: Reports chest pain; Deny abdominal pain, fever(s), lightheadedness, nausea, palpitations or vomiting Related Data Home Medications Medication Instructions Recorded Confirmed albuterol sulfate 90 mcg/actuation 1 puff inhalation QID PRN 01/25/24 11/02/24 aerosol inhaler Shortness Of Breath azelastine 137 mcg (0.1 %) nasal 1 spray intranasal BID PRN 01/25/24 11/02/24 spray allergies budesonide-formoterol HFA 160 2 puff inhalation BID PRN copd 01/25/24 11/02/24 mcg-4.5 mcg/actuation aerosol inhaler (Symbicort) ipratropium 0.5 mg-albuterol 3 mg 3 ml inhalation TID PRN unknown 01/25/24 11/02/24 (2.5 mg base)/3 mL nebulization soln ipratropium bromide 17 2 puff inhalation QID PRN 01/25/24 11/02/24 mcg/actuation HFA aerosol inhaler Shortness Of Breath (Atrovent HFA) nitroglycerin 0.4 mg sublingual 0.4 mg sublingual Q5M PRN Chest 01/25/24 11/02/24 tablet (Nitrostat) Pain aripiprazole 10 mg tablet (Abilify) 5 mg PO QAM 11/02/24 11/02/24 clopidogrel 75 mg tablet 75 mg PO DAILY 11/02/24 11/02/24 duloxetine 60 mg capsule,delayed 60 mg PO BID 11/02/24 11/02/24 release furosemide 40 mg tablet 40 mg PO .QOD 11/02/24 11/02/24 mupirocin 2 % topical ointment 1 applic topical BID PRN Skin 11/02/24 11/02/24 Irritation trazodone 150 mg tablet 75 mg PO BEDTIME 11/02/24 11/02/24 Previous Rx's Medication Instructions Recorded Lift chair #1 ea 04/27/20 compressor, for nebulizer #1 ea 08/20/21 nebulizer accessories #1 ea 08/20/21 albuterol sulfate 2.5 mg/3 mL 2.5 mg (3 mL) inhalation QID PRN 09/16/23 (0.083 %) solution for nebulization shortness of breath or wheezing #180 mL cholecalciferol (vitamin D3) 1,250 50,000 unit PO Q7D #12 caps 02/04/24 mcg (50,000 unit) capsule rizatriptan 10 mg tablet (Maxalt) See Rx Instructions PO .COMPLEX 02/04/24 #14 tabs metoprolol succinate 25 mg 12.5 - 25 mg (0.5 - 1 x 25 mg) PO 03/10/24 tablet,extended release 24 hr QAM #90 tabs pantoprazole 40 mg tablet,delayed 40 mg PO BID #180 tabs 03/10/24 release (Protonix) rosuvastatin 10 mg tablet (Crestor) 10 mg PO DAILY #90 tabs 03/10/24 topiramate 50 mg tablet 50 mg PO QAM #90 tabs 03/10/24 clonazepam 1 mg disintegrating 1 mg PO BID PRN Anxiety #60 tabs 06/16/24 tablet cyanocobalamin (vitamin B-12) 1,000 mcg IM Q30D #3 mL 06/16/24 1,000 mcg/mL injection solution syringe with needle 3 mL 25 gauge #20 ea 06/16/24 x 1 (BD Luer-Thai Syringe) tizanidine 4 mg tablet See Rx Instructions .Route 06/16/24 .COMPLEX #180 tabs hydrocortisone 1 % topical cream 1 applic topical BID PRN rash #454 07/05/24 (Cortisone (hydrocortisone)) grams levothyroxine 88 mcg tablet 88 mcg PO QAM #90 tabs 07/14/24 potassium chloride 10 mEq 10 meq PO QAM #90 tabs 07/14/24 tablet,extended release (Klor-Con) Allergies Allergy/AdvReac Type Severity Reaction Status Date / Time nitrofurantoin Allergy Unknown Unknown Verified 11/02/24 12:58 [From Macrobid] red dye Allergy ALGY-Rash Verified 11/02/24 12:58 Sulfa (Sulfonamide Allergy upset Verified 11/02/24 12:58 Antibiotics) stomach Tetracyclines Allergy ADR-Dizzine Verified 11/02/24 12:58 ss Review of Systems 2 General: Reports: 10 or more systems reviewed and unremarkable except in HPI and below Const: Reports: body aches and fatigue; Denies: fever(s) or chills Eyes: Denies: change in vision ENMT: Denies: throat pain, ear or mastoid pain or nasal discharge Card: Reports: chest pain; Denies: palpitations, swelling of feet/ankles or lightheadedness Resp: Reports: dyspnea and non-productive cough; Denies: productive cough or wheezing GI: Denies: abdominal pain, nausea, vomiting, diarrhea or constipation : Denies: flank pain, difficulty voiding, dysuria or urinary frequency Musc: Denies: neck pain, back pain or joint pain Skin/Breast: Denies: rash Neuro: Denies: headache(s), numbness in extremities or weakness in extremities PFSH ED 2 PFSH: Medical History Coronary artery disease CKD (chronic kidney disease) stage 3, GFR 30-59 ml/min Syncope and collapse COPD (chronic obstructive pulmonary disease) Moderate pulmonary hypertension Lyme disease Fibromyalgia Scoliosis GERD without esophagitis Mandibular fracture Fractured sternum Environmental and seasonal allergies Vitamin B12 deficiency Migraines Hypothyroidism Anxiety and depression Surgical History Hx of knee surgery Hx of shoulder surgery Hx of hysterectomy Hx of appendectomy History of back surgery History of surgery on wrist Family History Father Diabetes Hypertension Sister Diabetes Hypertension Other Lung disease Social History Smoking and tobacco/nicotine status: never used tobacco/nicotine Second hand smoke exposure: No Alcohol intake: never Substance/Drug Use: never Adopted: No Caregiver/support person: No Lives independently: Yes Household members: none Housing: House Marital status: / Number of children: 2 Number of grandchildren: 3 Highest education level completed: Master's Degree service: No Current occupational status: retired Pets and animals: Yes Do you think of yourself as: Straight/Heterosexual Current gender identity: Female Physical Exam 2 Const: COMMON NORMALS: no acute distress, patient oriented x3 and no limitations GENERAL APPEARANCE: cooperative, well developed and anxious O RIENTATION/CONSCIOUSNESS: Yes awake, Yes oriented to person, Yes oriented to place and Yes oriented to time HENMT: COMMON NORMALS: normocephalic, atraumatic, hearing grossly normal bilaterally and moist oral mucous membranes HEAD & SCALP: normocephalic and atraumatic Eye: COMMON NORMALS: Equal, round and reactive pupils present, EOMs intact bilaterally and conjunctivae normal CONJUNCTIVA: Yes conjunctivae normal P UPIL: Yes Equal, round and reactive pupils present Neck/C-Spine: COMMON NORMALS: full ROM, supple and no JVD Resp: COMMON NORMALS: normal respiratory effort, No retractions, No use of accessory muscles and clear to auscultation bilaterally AUSCULTATION: clear to auscultation bilaterally Cardio: COMMON NORMALS: no JVD, regular rate, regular rhythm, No clicks present (Cardio), No murmurs present (Cardio) and No rub (Cardio) RATE: r egular rate RHYTHM: regular rhythm GI: COMMON NORMALS: Normal to inspection, nondistended, normoactive bowel sounds present, Soft to palpation and non-tender AUSCULTATION: Yes normoactive bowel sounds PALPATION: Yes Soft to palpation RECTAL EXAM: d eferred Extremity: COMMON NORMALS: normal to inspection, full ROM, capillary refill normal and no pedal edema Neuro: COMMON NORMALS: patient oriented x3, moves all extremities, no focal motor deficits and no sensory deficits noted SENSORIUM/ORIENTATION: Yes oriented to person, Yes oriented to place and Yes oriented to time Skin: COMMON NORMALS: no rashes or lesions noted GENERAL SKIN EXAM: no rashes or lesions noted Course 2 Vital Signs: Vital signs: Vital Signs Temperature 98.4 F 11/02/24 12:46 Pulse Rate 95 11/02/24 17:58 Respiratory Rate 16 11/02/24 17:58 Blood Pressure 116/69 11/02/24 17:58 Pulse Oximetry 98 11/02/24 17:58 Oxygen Delivery Me thod Room Air 11/02/24 12:46 MDM - SOB/Dyspnea Medical Decision Making Patient presented with multiple complaints, has not followed up with primary care in regards to these and states today it got so severe and had a breaking point because she cannot transfer. She is noted to transfer from wheelchair to bed without complication as well as from bed to wheelchair at time of discharge. EKG reviewed did not show any acute concerning findings, reviewed with physician. Chest x-ray showing emphysematous changes but no acute cardiopulmonary process. Her initial troponin and 2-hour troponin were unremarkable. Rest of her lab work unremarkable including negative swab for COVID flu and RSV. She has multiple comorbid complaints that could be causing her weakness, does not appear to be due to any acute cardiac process, pneumonia, or other infectious etiology. For this we will have her follow-up with her primary care officially for further outpatient management which should include outpatient cardiac follow-up. She does note improvement of her pain after IV steroid here, which was given to combat any arthritic pain. She is requesting something for pain such as ibuprofen prior to discharge and is ready to leave prior to getting 2-hour troponin. Discussed return precautions, she agrees and will follow-up as we discussed. Discussed this case with Dr. Ramirez. Lab Data 11/02/24 13:46 11/02/24 13:46 Labs/Radiology: Radiology Impressions Chest X-Ray 11/02/24 12:25 IMPRESSION: 1. No acute cardiopulmonary abnormality. 2. Emphysematous changes. Laboratory Results WBC 7.79 10^3/uL (3.29-11.43) 11/02/24 13:46 RBC 4.95 10^6/uL (3.85-5.65) 11/02/24 13:46 Hgb 14.20 g/dL (11.27-16.99) 11/02/24 13:46 Hct 45.1 % (36-47) 11/02/24 13:46 MCV 91.1 fl (85-98) 11/02/24 13:46 MCH 28.7 pg (27-33) 11/02/24 13:46 MCHC 31.5 g/dL (30-55) 11/02/24 13:46 RDW 14.6 % (12.1-15.1) 11/02/24 13:46 Plt Count 347 10^3/cmm (157-399) 11/02/24 13:46 MPV 10.2 fL (7.4-10.4) 11/02/24 13:46 Neut % (Auto) 68.1 % 11/02/24 13:46 Lymph % (Auto) 23.2 % 11/02/24 13:46 Braxton % (Auto) 5.9 % 11/02/24 13:46 Eos % (Auto) 1.5 % 11/02/24 13:46 Baso % (Auto) 0.9 % 11/02/24 13:46 Neut # (Auto) 5.30 10^3/uL (1.8-7.7) 11/02/24 13:46 Lymph # (Auto) 1.8 10^3/uL (0.8-4.8) 11/02/24 13:46 Braxton # (Auto) 0.5 10^3/uL (0.2-0.9) 11/02/24 13:46 Eos # (Auto) 0.1 10^3/uL (0.0-0.8) 11/02/24 13:46 Baso # (Auto) 0.1 10^3/uL (0.0-0.1) 11/02/24 13:46 Nucleated RBC % (auto) 0 % 11/02/24 13:46 Nucleated RBCs # 0.0 /100WBC 11/02/24 13:46 Sodium 137 mmol/L (136-145) 11/02/24 13:46 Potassium 3.8 mmol/L (3.5-5.1) 11/02/24 13:46 Chloride 99 mmol/L (98-107) 11/02/24 13:46 Carbon Dioxide 25 mmol/L (22-29) 11/02/24 13:46 Anion Gap 16.8 (5-19) 11/02/24 13:46 BUN 24 mg/dL (8-23) H 11/02/24 13:46 Creatinine 1.3 mg/dL (0.5-0.9) H 11/02/24 13:46 GFR Calculation 40.5 mL/min (90-130) L 11/02/24 13:46 Glucose 99 mg/dL (65-115) 11/02/24 13:46 Calculated Osmolality 288 mOsm/kg (285-295) 11/02/24 13:46 Calcium 9.8 mg/dL (8.5-10.5) 11/02/24 13:46 Total Bilirubin 0.4 mg/dL (0.15-1.2) 11/02/24 13:46 AST 21 U/L (0-32) 11/02/24 13:46 ALT 10 U/L (0-33) 11/02/24 13:46 Alkaline Phosphatase 135 U/L (35-105) H 11/02/24 13:46 Troponin T Baseline 15 ng/L (0-10) H 11/02/24 13:46 Troponin T 120 Minute 15.14 ng/L (0-10) H 11/02/24 16:16 Delta Troponin T 0.14 ABS# (0-10) 11/02/24 16:16 NT-Pro-B Natriuret Pep < 36 pg/mL (0-125) 11/02/24 13:46 Total Protein 7.6 g/dL (6.6-8.7) 11/02/24 13:46 Albumin 4.3 g/dL (3.5-5.2) 11/02/24 13:46 Globulin 3.3 g/dL (1.3-4.6) 11/02/24 13:46 Coronavirus (PCR) Negative (Negative) 11/02/24 15:57 Influenza A (PCR) Negative (Negative) 11/02/24 15:57 Influenza Type B (PCR) Negative (Negative) 11/02/24 15:57 RSV (PCR) Negative (Negative) 11/02/24 15:57 All radiology interpretation(s) finalized by discharge Discharge Plan Discharge Patient Disposition: Home Clinical Impression: Arthritis pain, Fatigue Condition: Stable Prescriptions: No Action (DME) compressor, for nebulizer Device See Rx Instructions .Route Qty: 1 0RF Rx Instructions: As directed (DME) nebulizer accessories Misc See Rx Instructions .Route Qty: 1 0RF Rx Instructions: As directed (DME) Lift chair See Rx Instructions .Route .MEDSUPPLY Qty: 1 0RF Rx Instructions: Unable to get up from sitting to standing and lives alone. metoprolol succinate 25 mg tablet extended release 24 hr 12.5 - 25 mg PO QAM Qty: 90 3RF topiramate 50 mg tablet 50 mg PO QAM Qty: 90 2RF pantoprazole [Protonix] 40 mg tablet,delayed release (DR/EC) 40 mg PO BID Qty: 180 2RF rosuvastatin [Crestor] 10 mg tablet 10 mg PO DAILY Qty: 90 2RF cyanocobalamin (vitamin B-12) 1,000 mcg/mL solution 1,000 mcg IM Q30D Qty: 3 3RF (DME) BD Luer-Thai Syringe 3 mL 25 gauge x 1 syringe See Rx Instructions .ROUTE .COMPLEX Qty: 20 3RF Dose Instruction: USE WITH BI2 INJECTION EVERY 14 DAYS Rx Instructions: USE WITH BI2 INJECTION EVERY 14 DAYS tizanidine 4 mg tablet See Rx Instructions .ROUTE .COMPLEX Qty: 180 3RF Dose Instruction: TAKE TWO TABLETS BY MOUTH EVERY 8 HOURS NEEDED FOR MUSCLE SPASTICITY Rx Instructions: TAKE TWO TABLETS BY MOUTH EVERY 8 HOURS NEEDED FOR MUSCLE SPASTICITY clonazepam 1 mg tablet,disintegrating 1 mg PO BID PRN (Reason: Anxiety) Qty: 60 2RF albuterol sulfate 2.5 mg /3 mL (0.083 %) solution for nebulization 2.5 mg inhalation QID PRN (Reason: shortness of breath or wheezing) Qty: 180 5RF cholecalciferol (vitamin D3) 1,250 mcg (50,000 unit) capsule 50,000 unit PO Q7D Qty: 12 2RF Rx Instructions: on thursday rizatriptan [Maxalt] 10 mg tablet See Rx Instructions PO .COMPLEX Qty: 14 3RF Rx Instructions: take 1 tab at onset of headache; if no relief may repeat 1 tab after at least 2 hrs; max = 2 tabs/24 hr PO hydrocortisone [Cortisone (hydrocortisone)] 1 % cream 1 applic topical BID PRN (Reason: rash) Qty: 454 0RF levothyroxine 88 mcg tablet 88 mcg PO QAM Qty: 90 1RF Rx Instructions: dose change Klor-Con 10 10 mEq tablet extended release 10 meq PO QAM Qty: 90 1RF nitroglycerin [Nitrostat] 0.4 mg Tablet, Sublingual 0.4 mg SUBLINGUAL Q5M PRN (Reason: Chest Pain) Rx Instructions: do not exceed 3 doses per episode ipratropium-albuterol 0.5 mg-3 mg(2.5 mg base)/3 mL solution for nebulization 3 ml inhalation TID PRN (Reason: unknown) azelastine 137 mcg (0.1 %) aerosol,spray 1 spray intranasal BID PRN (Reason: allergies) albuterol sulfate 90 mcg/actuation HFA aerosol inhaler 1 puff inhalation QID PRN (Reason: Shortness Of Breath) Atrovent HFA 17 mcg/actuation HFA aerosol inhaler 2 puff inhalation QID PRN (Reason: Shortness Of Breath) budesonide-formoterol [Symbicort] 160-4.5 mcg/actuation HFA aerosol inhaler 2 puff inhalation BID PRN (Reason: copd) furosemide 40 mg tablet 40 mg PO .QOD clopidogrel 75 mg tablet 75 mg PO DAILY trazodone 150 mg tablet 75 mg PO BEDTIME mupirocin 2 % ointment 1 applic topical BID PRN (Reason: Skin Irritation) aripiprazole [Abilify] 10 mg tablet 5 mg PO QAM duloxetine 60 mg capsule,delayed release(DR/EC) 60 mg PO BID Discharge Orders: Discharge ED (Routine); Ordered 11/02/24 Ordered By: Clifford Garcia Referrals: Soheila Devlin MD [Primary Care Provider] - Patient Instructions: Opioid Safety, Pain Management Activity Restrictions/Additional Instructions: Please follow-up with your primary care provider for further evaluation. Return with any new or worsening. Continue home medications. Coding Level of Care Code ED Pump Operator Byproducts for Chg Jefry
== END 2024-11-02 18:00 | disposition home or self-care (01) ==
PROVIDERS: Emergency Medicine; Emergency Provider Physician Assistant; PCP Family Medicine
DX: R53.83 Other fatigue (principal); M19.90 Unspecified osteoarthritis, unspecified site; Z11.52 Encounter for screening for COVID-19; J44.9 Chronic obstructive pulmonary disease, unspecified; I25.10 Atherosclerotic heart disease of native coronary artery without angina pectoris; N18.9 Chronic kidney disease, unspecified
CPT/HCPCS: 36415; 71045; 80053; 83880; 84484; 85025; 87637; 93005; 93010; 96374; 96375; 99285; J1100; J1885; J2919

== ENCOUNTER → 2025-01-13 09:04 | Outpatient (BNVA) | payer MEDICARE, MEDICAID, SELFPAY | PROVIDERS: PCP Family Medicine; Visit Provider Internal Medicine | DX: I25.10 Atherosclerotic heart disease of native coronary artery without angina pectoris (principal); R07.9 Chest pain, unspecified | CPT/HCPCS: 99214 ==

== ENCOUNTER 2025-01-25 07:07 | Outpatient (CLI) | payer MEDICARE, MEDICAID, SELFPAY ==
--- NOTE | 2025-01-25 07:39 | NMCV_ITS ---
NM kiara perf SPECT r/s* [id number] Nereida Palafox Age: 69 Gender: F : 1955 Exam Date: 01/25/2025 07:39 Ordering Phys: Tyron Cortes M.D ([email or web address]) Technologist: MARCEL Wooten Exam Location: [facility] Indications: cp STRESS TEST Please see separate stress test report in [facility] for full findings IMAGE PROTOCOL Rest/Stress 1 Lexiscan Day Radiopharmaceutical Dose (mCi) Administration Site Administered by Rest: Tc-99m 10.7 IV MARCEL Leavitt Sestamibi Stress:Tc-99m 32.7 IV MARCEL Leavitt Sestamibi Rest: 25-Jan-2025 60 Discovery 630 Stress: 25-Jan-2025 30 Discovery 630 0.4mg Lexiscan. Supine position only as patient was unable to lay prone. SPECT RESULTS Technical Quality: Good Raw Data Analysis: Normal Image Corrections: No attenuation or motion correction applied Summed Stress Score: 2 Summed Rest Score: 1 Summed Difference Score: 1 PERFUSION FINDINGS There is a small area of partially reversible perfusion defect seen in the inferolateral wall. This is consistent with small area of prior infarct with minimal wayne-infarct ischemia in the left circumflex artery territory. FUNCTIONAL RESULTS (calculated via Gated SPECT) Stress Image LV EF (%): 94 Stress EDV (mL):48 TID: 1.13 Stress ESV (mL):3 FUNCTIONAL FINDINGS: There is normal left ventricular systolic function. IMPRESSIONS 1. Small area of prior infarct with minimal wayne-infarct ischemia seen in the left circumflex artery territory. 2. LV systolic function is normal Tyron Cortes MD (Electronically Signed) Final Date: 26 January 2025 10:29 S
--- NOTE | 2025-01-25 07:39 | ECG_ITS ---
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 The perfusion scan will be documented separately. DATA: Baseline heart rate was 85 beats per minute. Baseline blood pressure was 123/79 millimeters of mercury. Target heart rate was 150. Maximum heart rate achieved was 106. which was 70 % of the predicted target heart rate. Maximum blood pressure was 123/79 millimeters of mercury. The reason for ending the test was completion of the protocol. The patient did not experience any symptoms. ELECTROCARDIOGRAM: BASELINE: Sinus rhythm. Normal axis. Otherwise, no ST-T changes suggestive of ischemia noted. No arrhythmia noted. EXERCISE: After Lexiscan injection, no ST-T changes suggestive of ischemic noted. No arrhythmia noted. CONCLUSION: Please note due to baseline abnormality of the EKG specificity and sensitivity of the EKG portion of LexiScan MIBI stress test will be low 1. EKG not suggestive of ischemia 2. Lexiscan injection unremarkable. 3. Perfusion scan will be documented separately. Electronically Signed On 02-13-2025 11:37:10 CDT by ANALI ANDRADE [email or web address]
[2025-01-25 07:40] VITALS: BMI 29.5
[2025-01-25] MEDS: regadenoson 0.4 Mg/5 ml Syringe IVP (08:58)
[2025-01-25 09:26] VITALS: BP 123/79; PULSE 92
== END 2025-01-25 07:08 | disposition home or self-care (01) ==
PROVIDERS: PCP Family Medicine; Visit Provider Internal Medicine
DX: R07.9 Chest pain, unspecified (principal); R06.02 Shortness of breath; R93.1 Abnormal findings on diagnostic imaging of heart and coronary circulation
CPT/HCPCS: 36415; 78452; 93017; 96374; A9500; J2785

== ENCOUNTER 2025-02-04 13:41 | Emergency (ER) | payer MEDICARE, MEDICAID, SELFPAY ==
[2025-02-04] VITALS (9 sets, daily range): BP systolic 111–137; BP diastolic 50–91; PULSE 80–89; RESP 14–17; TEMP 36.8; O2SAT 93–100; BMI 28.3
--- NOTE | 2025-02-04 13:47 | ECG_ITS ---
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 Measurements Intervals [place] Rate: 87 P: 48 CO: 197 QRS: 43 QRSD: 77 T: 38 QT: 382 QTc: 461 Interpretive Statements SINUS RHYTHM WITH OCCASIONAL SUPRAVENTRICULAR PREMATURE COMPLEXES No previous ECG available for comparison Electronically Signed On 02-04-2025 18:11:19 CDT by Tyron Cortes M.D. [email or web address] [id number]
--- NOTE | 2025-02-04 13:47 | XRR_ITS ---
PROCEDURE INFORMATION: Exam: XR Chest Exam date and time: 02/04/2025 1:52 PM Age: 69 years old Clinical indication: Pain; Chest pressure; Additional info: Cp TECHNIQUE: Imaging protocol: Radiologic exam of the chest. Views: 1 view. COMPARISON: CR XR chest 1V portable [id number] 11/02/2024 12:05 PM FINDINGS: Lungs: Unremarkable. No consolidation. Pleural spaces: Unremarkable. No pleural effusion. No pneumothorax. Heart/Mediastinum: Unremarkable. No cardiomegaly. Bones/joints: Unremarkable. XR/XR chest 1V portable [id number] IMPRESSION: No acute findings.
[2025-02-04 14:13] LABS: Basophils # 0.1 10^3/uL (0.0-0.1); Basophils % 0.8 %; Eosinophils # 0.2 10^3/uL (0.0-0.8); Eosinophils % 1.9 %; Hematocrit 46.7 % (36-47); Lymphocytes # 1.7 10^3/uL (0.8-4.8); Lymphocytes % 19.8 %; Mean Corpuscular HGB Conc 29.1 g/dL (30-55); Mean Corpuscular Hemoglobin 28.8 pg (27-33); Mean Corpuscular Volume 98.9 fl (85-98); Mean Platelet Volume 10.3 fL (7.4-10.4); Monocytes # 0.5 10^3/uL (0.2-0.9); Monocytes % 5.6 %; Neutrophils # 6.12 10^3/uL (1.8-7.7); Neutrophils % 71.5 %; Nucleated Red Blood Cells % 0 %; Platelet Count 260 10^3/cmm (157-399); Red Blood Count 4.72 10^6/uL (3.85-5.65); Red Cell Distribution Width 14.5 % (12.1-15.1); White Blood Count 8.55 10^3/uL (3.29-11.43)
--- NOTE | 2025-02-04 14:21 | W.ED.CHESTPA ---
HPI - Chest Pain General: Chief Complaint: Chest Pain Stated Complaint: chest pain Time Seen by Provider: 02/04/25 13:47 Source: patient Mode of arrival: EMS Limitations: no limitations History of Present Illness: This patient arrives via EMS from her home. She states that she was brushing her cat and was bent over doing that activity and felt like she was going to collapse and felt weak. She states that she grabbed a door frame and slid herself down to the floor. She was discovered by her son who called 911. She is apparently has had low blood pressures prior to arrival. She states that she has had some chest pain and with radiation down her left arm. She states that she had a stress test last week that showed some reversible decreased blood flow and she is scheduled for an angiogram. She denies any concomitant shortness of breath, injury from her collapse etc. She states she took her prescribed medications earlier today but has not had much to eat or drink today. Associated symptoms: Deny abdominal pain, dyspnea, fever(s), nausea or vomiting Related Data Home Medications ?Medication ?Instructions ?Recorded ?Confirmed albuterol sulfate 90 mcg/actuation 1 puff inhalation QID PRN 01/25/24 01/13/25 aerosol inhaler Shortness Of Breath azelastine 137 mcg (0.1 %) nasal 1 spray intranasal BID PRN 01/25/24 01/13/25 spray allergies budesonide-formoterol HFA 160 2 puff inhalation BID PRN copd 01/25/24 01/13/25 mcg-4.5 mcg/actuation aerosol inhaler (Symbicort) ipratropium 0.5 mg-albuterol 3 mg 3 ml inhalation TID PRN unknown 01/25/24 01/13/25 (2.5 mg base)/3 mL nebulization soln ipratropium bromide 17 2 puff inhalation QID PRN 01/25/24 01/13/25 mcg/actuation HFA aerosol inhaler Shortness Of Breath (Atrovent HFA) nitroglycerin 0.4 mg sublingual 0.4 mg sublingual Q5M PRN Chest 01/25/24 01/13/25 tablet (Nitrostat) Pain clopidogrel 75 mg tablet 75 mg PO DAILY 11/02/24 01/13/25 duloxetine 60 mg capsule,delayed 60 mg PO BID 11/02/24 01/13/25 release furosemide 40 mg tablet 40 mg PO .QOD 11/02/24 01/13/25 mupirocin 2 % topical ointment 1 applic topical BID PRN Skin 11/02/24 01/13/25 Irritation trazodone 150 mg tablet 75 mg PO BEDTIME 11/02/24 01/13/25 Previous Rx's ?Medication ?Instructions ?Recorded Lift chair #1 ea 04/27/20 compressor, for nebulizer #1 ea 08/20/21 nebulizer accessories #1 ea 08/20/21 albuterol sulfate 2.5 mg/3 mL 2.5 mg (3 mL) inhalation QID PRN 09/16/23 (0.083 %) solution for nebulization shortness of breath or wheezing #180 mL cholecalciferol (vitamin D3) 1,250 50,000 unit PO Q7D #12 caps 02/04/24 mcg (50,000 unit) capsule rizatriptan 10 mg tablet (Maxalt) See Rx Instructions PO .COMPLEX 02/04/24 #14 tabs pantoprazole 40 mg tablet,delayed 40 mg PO BID #180 tabs 03/10/24 release (Protonix) rosuvastatin 10 mg tablet (Crestor) 10 mg PO DAILY #90 tabs 03/10/24 topiramate 50 mg tablet 50 mg PO QAM #90 tabs 03/10/24 clonazepam 1 mg disintegrating 1 mg PO BID PRN Anxiety #60 tabs 06/16/24 tablet cyanocobalamin (vitamin B-12) 1,000 mcg IM Q30D #3 mL 06/16/24 1,000 mcg/mL injection solution syringe with needle 3 mL 25 gauge #20 ea 06/16/24 x 1 (BD Luer-Thai Syringe) tizanidine 4 mg tablet See Rx Instructions .Route 06/16/24 .COMPLEX #180 tabs hydrocortisone 1 % topical cream 1 applic topical BID PRN rash #454 07/05/24 (Cortisone (hydrocortisone)) grams levothyroxine 88 mcg tablet 88 mcg PO QAM #90 tabs 07/14/24 potassium chloride 10 mEq 10 meq PO QAM #90 tabs 07/14/24 tablet,extended release (Klor-Con) cefuroxime axetil 500 mg tablet 500 mg PO BID #20 tabs 02/03/25 isosorbide dinitrate 30 mg tablet 15 mg (1/2 x 30 mg) PO BEDTIME #30 02/04/25 tabs metoprolol succinate 25 mg 25 mg PO DAILY #45 tabs 02/04/25 tablet,extended release 24 hr Allergies Allergy/AdvReac Type Severity Reaction Status Date / Time nitrofurantoin (From Allergy Unknown Unknown Verified 02/03/25 11:57 Macrobid) red dye Allergy ALGY-Rash Verified 02/03/25 11:57 Sulfa (Sulfonamide Allergy upset Verified 02/03/25 11:57 Antibiotics) stomach Tetracyclines Allergy ADR-Dizzine Verified 02/03/25 11:57 ss Review of Systems Const: Denies: fever(s) or chills Eyes: Denies: change in vision ENMT: Denies: throat pain, odynophagia, nasal discharge or nasal congestion Card: Reports: chest pain and pre-syncope Resp: Denies: dyspnea, productive cough or non-productive cough GI: Denies: abdominal pain, nausea, vomiting or diarrhea : Denies: flank pain or difficulty voiding Musc: Denies: neck pain, back pain, extremity pain or extremity swelling Skin/Breast: Denies: rash or pruritus Neuro: Denies: headache(s), numbness in extremities, weakness in extremities, vertigo or seizure-like activity Luca/Lymph: Reports: easy bruising and easy bleeding PFSH ED PFSH: Medical History Coronary artery disease CKD (chronic kidney disease) stage 3, GFR 30-59 ml/min Syncope and collapse COPD (chronic obstructive pulmonary disease) Moderate pulmonary hypertension Lyme disease Fibromyalgia Scoliosis GERD without esophagitis Mandibular fracture Fractured sternum Environmental and seasonal allergies Vitamin B12 deficiency Migraines Hypothyroidism Anxiety and depression Surgical History Hx of knee surgery Hx of shoulder surgery Hx of hysterectomy Hx of appendectomy History of back surgery History of surgery on wrist Family History Father Diabetes Hypertension Sister Diabetes Hypertension Other Lung disease Social History Smoking and tobacco/nicotine status: never used tobacco/nicotine Second hand smoke exposure: No Alcohol intake: never Substance/Drug Use: never Adopted: No Caregiver/support person: No Lives independently: Yes Household members: none Housing: House Marital status: / Number of children: 2 Number of grandchildren: 3 Highest education level completed: Master's Degree service: No Current occupational status: retired Pets and animals: Yes Do you think of yourself as: Straight/Heterosexual Current gender identity: Female Physical Exam Narrative: EXAM NARRATIVE: Patient makes good eye contact she speaks in a low volume voice but answers questions appropriately. Appears to be in no acute distress. Const: COMMON NORMALS: no acute distress, average body habitus and patient oriented x3 GENERAL APPEARANCE: cooperative and comfortable HENMT: COMMON NORMALS: atraumatic, Normal nasal mucous membranes and turbinates present, moist oral mucous membranes and oropharynx normal HEAD & SCALP: atraumatic NOSE: Normal nasal mucous membranes and turbinates present Eye: COMMON NORMALS: Equal, round and reactive pupils present, EOMs intact bilaterally and conjunctivae normal CONJUNCTIVA: Yes conjunctivae normal PUPIL: Yes Equal, round and reactive pupils present Neck/C-Spine: COMMON NORMALS: full ROM, no JVD, Thyroid normal and No carotid bruits THYROID: Thyroid normal Chest: COMMONS NORMALS: normal inspection of the chest and normal palpation of entire chest wall Resp: COMMON NORMALS: normal respiratory effort, No retractions, No use of accessory muscles and clear to auscultation bilaterally AUSCULTATION: clear to auscultation bilaterally Cardio: COMMON NORMALS: no JVD, regular rate, regular rhythm, No murmurs present (Cardio) and Peripheral pulses 2+ throughout RATE: regular rate RHYTHM: regular rhythm PERIPHERAL PULSES: Peripheral pulses 2+ throughout GI: COMMON NORMALS: Normal to inspection, nondistended, normoactive bowel sounds present, Soft to palpation and non-tender PALPATION: Yes Soft to palpation Back/Pelvis: COMMON NORMALS: thoracic and lumbar spine normal to inspection, no thoracic nor lumbar tenderness and thoraco-lumbar ROM normal Extremity: COMMON NORMALS: normal to inspection, full ROM, capillary refill normal and no pedal edema Neuro: COMMON NORMALS: patient oriented x3, moves all extremities, no focal motor deficits and no sensory deficits noted Psych: COMMON NORMALS: mental status grossly normal Skin: COMMON NORMALS: no rashes or lesions noted, no wounds and turgor normal GENERAL SKIN EXAM: no rashes or lesions noted and turgor normal Course Reevaluation(s): Reevaluation #1: Patient remained stable. I evaluated both her ears that she told me that she was told she had an ear infection yesterday. She had some fullness and decreased hearing and lightheadedness. She has a history of seasonal allergies as well. I evaluated both EACs as well as her TMs. She had intact TMs bilaterally. She had evidence of clear fluid behind the right TM with decreased mobility to Valsalva. Discussed the fact that her initial biomarkers were essentially normal but that we would be repeating another 1 to ensure that she did not have any significant rise in her biomarkers indicating possible ACS, ischemia etc. At that point time we will discuss whether she needs additional workup by cardiology. Time: 16:25 Reevaluation #2: Patient remained stable. We had a discussion regarding her current findings and also recommendations from cardiology consult consultation. She voiced understanding of her discussion and was appreciative. She is stable at this time to be discharged for outpatient management. Time: 18:23 Consultations: Consultation #1: Spoke with Dr. Doyle and we reviewed her current previous evaluations and workup and formulated a plan of care and follow-up for her. Time: 18:23 Vital Signs: Vital signs: Vital Signs Temperature 98.3 F 02/04/25 13:45 Pulse Rate 82 02/04/25 18:07 Respiratory Rate 14 02/04/25 17:42 Blood Pressure 111/50 02/04/25 18:07 Pulse Oximetry 93 02/04/25 18:07 Oxygen Delivery Me thod Nasal Cannula 02/04/25 14:02 MDM - Chest Pain Medical Decision Making Patient with known coronary disease presented and noted the HPI. She apparently had weakness episode where she felt like she did not have the energy to make it to the next room. She developed chest pain subsequent to that. She apparently had a recent myocardial perfusion scan that showed findings of previous infarct as well as some potential small area of reversible perfusion defect. No history of anemia, recent illness etc. She did not suffer any injury but she supported herself as she slid down the door facing when she became weak. Workup will be initiated to ensure that no evidence of ACS or other active ischemic changes. Initial EKG did not reveal any concerning findings. The patient remained clinically stable in the emergency department. There was no dynamic changes on repeated of EKGs. Her troponins remained unchanged without any rise that would rise to concern of ACS. Consultation was obtained from on-call cardiology and we made some medication adjustments. She is stable at this time without any evidence of ACS or other concerning condition. We also attended to her eustachian tube dysfunction with treatment recommendations as well. Medical Records I reviewed the patient's medical records. Reviewed perfusion scan from 01/25/2025 which revealed areas of defect consistent with her previous infarct as well as minimal amount of reversible perfusion defect Lab Data I reviewed the patient's lab results. 02/04/25 14:05 02/04/25 14:05 Radiology Impressions Chest X-Ray 02/04/25 13:47 IMPRESSION: No acute findings. Laboratory Results WBC 8.55 10^3/uL (3.29-11.43) 02/04/25 14:05 RBC 4.72 10^6/uL (3.85-5.65) 02/04/25 14:05 Hgb 13.60 g/dL (11.27-16.99) 02/04/25 14:05 Hct 46.7 % (36-47) 02/04/25 14:05 MCV 98.9 fl (85-98) H 02/04/25 14:05 MCH 28.8 pg (27-33) 02/04/25 14:05 MCHC 29.1 g/dL (30-55) L 02/04/25 14:05 RDW 14.5 % (12.1-15.1) 02/04/25 14:05 Plt Count 260 10^3/cmm (157-399) 02/04/25 14:05 MPV 10.3 fL (7.4-10.4) 02/04/25 14:05 Neut % (Auto) 71.5 % 02/04/25 14:05 Lymph % (Auto) 19.8 % 02/04/25 14:05 [place] % (Auto) 5.6 % 02/04/25 14:05 Eos % (Auto) 1.9 % 02/04/25 14:05 Baso % (Auto) 0.8 % 02/04/25 14:05 Neut # (Auto) 6.12 10^3/uL (1.8-7.7) 02/04/25 14:05 Lymph # (Auto) 1.7 10^3/uL (0.8-4.8) 02/04/25 14:05 [place] # (Auto) 0.5 10^3/uL (0.2-0.9) 02/04/25 14:05 Eos # (Auto) 0.2 10^3/uL (0.0-0.8) 02/04/25 14:05 Baso # (Auto) 0.1 10^3/uL (0.0-0.1) 02/04/25 14:05 Nucleated RBC % (auto) 0 % 02/04/25 14:05 Nucleated RBCs # 0.0 /100WBC 02/04/25 14:05 Sodium 138 mmol/L (136-145) 02/04/25 14:05 Potassium 4.1 mmol/L (3.5-5.1) 02/04/25 14:05 Chloride 109 mmol/L (98-107) H 02/04/25 14:05 Carbon Dioxide 17 mmol/L (22-29) L 02/04/25 14:05 Anion Gap 16.1 (5-19) 02/04/25 14:05 BUN 19 mg/dL (8-23) 02/04/25 14:05 Creatinine 1.2 mg/dL (0.5-0.9) H 02/04/25 14:05 GFR Calculation 44.4 mL/min (90-130) L 02/04/25 14:05 Glucose 70 mg/dL (65-115) 02/04/25 14:05 Calculated Osmolality 287 mOsm/kg (285-295) 02/04/25 14:05 Calcium 8.8 mg/dL (8.5-10.5) 02/04/25 14:05 Total Bilirubin 0.2 mg/dL (0.15-1.2) 02/04/25 14:05 AST 23 U/L (0-32) 02/04/25 14:05 ALT 11 U/L (0-33) 02/04/25 14:05 Alkaline Phosphatase 121 U/L (35-105) H 02/04/25 14:05 Troponin T Baseline 13 ng/L (0-10) H 02/04/25 14:05 Troponin T 120 Minute 13.45 ng/L (0-10) H 02/04/25 16:45 Delta Troponin T 0.45 ABS# (0-10) 02/04/25 16:45 NT-Pro-B Natriuret Pep 844 pg/mL (0-125) H 02/04/25 14:05 Total Protein 7.1 g/dL (6.6-8.7) 02/04/25 14:05 Albumin 3.8 g/dL (3.5-5.2) 02/04/25 14:05 Globulin 3.3 g/dL (1.3-4.6) 02/04/25 14:05 All radiology interpretation(s) finalized by discharge EKG Data EKG 1: I personally reviewed and interpreted this EKG as follows: Interpretation: Contemporaneous review of resting EKG reveals ventricular rate of 87 bpm normal MN interval normal QRS duration normal corrected QT interval normal axis. No ectopy noted at this time. No acute ST-T wave changes noted. EKG 2: I personally reviewed and interpreted this EKG as follows: Interpretation: Second EKG this visit revealed a ventricular rate of 78 bpm. Prolonged MN interval at 250 ms. Normal QRS duration, corrected QT interval. Normal axis. She appears to have a sinus rhythm with a first-degree AV block no acute ST-T wave changes and no dynamic changes from earlier tracing this visit. Discharge Plan Discharge Patient Disposition: Home Clinical Impression: Chest pain, Coronary artery disease, Eustachian tube dysfunction Condition: Stable Prescriptions: New metoprolol succinate 25 mg tablet extended release 24 hr 25 mg PO DAILY Qty: 45 1RF Rx Instructions: 25mg qm and 12.5 mg at bedtime isosorbide dinitrate 30 mg tablet 15 mg PO BEDTIME Qty: 30 1RF Rx Instructions: allow nitrate-free interval of 12-14 hrs per 24-hr period Discontinued metoprolol succinate 25 mg tablet extended release 24 hr 12.5 - 25 mg PO QAM Qty: 90 3RF No Action (DME) compressor, for nebulizer Device See Rx Instructions .Route Qty: 1 0RF Rx Instructions: As directed (DME) nebulizer accessories Misc See Rx Instructions .Route Qty: 1 0RF Rx Instructions: As directed (DME) Lift chair See Rx Instructions .Route .MEDSUPPLY Qty: 1 0RF Rx Instructions: Unable to get up from sitting to standing and lives alone. topiramate 50 mg tablet 50 mg PO QAM Qty: 90 2RF pantoprazole [Protonix] 40 mg tablet,delayed release (DR/EC) 40 mg PO BID Qty: 180 2RF rosuvastatin [Crestor] 10 mg tablet 10 mg PO DAILY Qty: 90 2RF cyanocobalamin (vitamin B-12) 1,000 mcg/mL solution 1,000 mcg IM Q30D Qty: 3 3RF (DME) BD Luer-Thai Syringe 3 mL 25 gauge x 1 syringe See Rx Instructions .ROUTE .COMPLEX Qty: 20 3RF Dose Instruction: USE WITH BI2 INJECTION EVERY 14 DAYS Rx Instructions: USE WITH BI2 INJECTION EVERY 14 DAYS tizanidine 4 mg tablet See Rx Instructions .ROUTE .COMPLEX Qty: 180 3RF Dose Instruction: TAKE TWO TABLETS BY MOUTH EVERY 8 HOURS NEEDED FOR MUSCLE SPASTICITY Rx Instructions: TAKE TWO TABLETS BY MOUTH EVERY 8 HOURS NEEDED FOR MUSCLE SPASTICITY clonazepam 1 mg tablet,disintegrating 1 mg PO BID PRN (Reason: Anxiety) Qty: 60 2RF albuterol sulfate 2.5 mg /3 mL (0.083 %) solution for nebulization 2.5 mg inhalation QID PRN (Reason: shortness of breath or wheezing) Qty: 180 5RF cefuroxime axetil 500 mg tablet 500 mg PO BID Qty: 20 0RF cholecalciferol (vitamin D3) 1,250 mcg (50,000 unit) capsule 50,000 unit PO Q7D Qty: 12 2RF Rx Instructions: on thursday rizatriptan [Maxalt] 10 mg tablet See Rx Instructions PO .COMPLEX Qty: 14 3RF Rx Instructions: take 1 tab at onset of headache; if no relief may repeat 1 tab after at least 2 hrs; max = 2 tabs/24 hr PO hydrocortisone [Cortisone (hydrocortisone)] 1 % cream 1 applic topical BID PRN (Reason: rash) Qty: 454 0RF levothyroxine 88 mcg tablet 88 mcg PO QAM Qty: 90 1RF Rx Instructions: dose change Klor-Con 10 10 mEq tablet extended release 10 meq PO QAM Qty: 90 1RF nitroglycerin [Nitrostat] 0.4 mg Tablet, Sublingual 0.4 mg SUBLINGUAL Q5M PRN (Reason: Chest Pain) Rx Instructions: do not exceed 3 doses per episode ipratropium-albuterol 0.5 mg-3 mg(2.5 mg base)/3 mL solution for nebulization 3 ml inhalation TID PRN (Reason: unknown) azelastine 137 mcg (0.1 %) aerosol,spray 1 spray intranasal BID PRN (Reason: allergies) albuterol sulfate 90 mcg/actuation HFA aerosol inhaler 1 puff inhalation QID PRN (Reason: Shortness Of Breath) Atrovent HFA 17 mcg/actuation HFA aerosol inhaler 2 puff inhalation QID PRN (Reason: Shortness Of Breath) budesonide-formoterol [Symbicort] 160-4.5 mcg/actuation HFA aerosol inhaler 2 puff inhalation BID PRN (Reason: copd) furosemide 40 mg tablet 40 mg PO .QOD clopidogrel 75 mg tablet 75 mg PO DAILY trazodone 150 mg tablet 75 mg PO BEDTIME mupirocin 2 % ointment 1 applic topical BID PRN (Reason: Skin Irritation) duloxetine 60 mg capsule,delayed release(DR/EC) 60 mg PO BID Discharge Orders: Discharge ED (Routine); Ordered 02/04/25 Ordered By: Marcus Castillo Referrals: Ceferino Mayorga [Primary Care Provider] - Discharge Diet: Low Salt Discharge Activity: Resume usual activity Patient Instructions: Opioid Safety, Pain Management Activity Restrictions/Additional Instructions: As we discussed you do not have any evidence of a heart attack during your emergency department evaluation this evening. We also reviewed your test results. We have made some medication changes to help with any of your symptoms this includes active adding a new medication called nitroglycerin which is a long-acting nitroglycerin to your medications. We have also increased your metoprolol from 1 pill daily to 1 pill in the morning and 1/2 pill in the evening. Call the cardiology clinic this coming week to arrange a follow-up appointment within the next 2 weeks. If it anytime you have chest pain that is not relieved by your current medications or other concerning symptoms return to the emergency department immediately. 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
[2025-02-04 14:46] LABS: Alanine Aminotransferase 11 U/L (0-33); Albumin Level 3.8 g/dL (3.5-5.2); Alkaline Phosphatase 121 U/L (35-105); Anion Gap 16.1 (5-19); Aspartate Amino Transferase 23 U/L (0-32); Blood Urea Nitrogen 19 mg/dL (8-23); Calcium 8.8 mg/dL (8.5-10.5); Carbon Dioxide 17 mmol/L (22-29); Chloride 109 mmol/L (98-107); Creatinine Clr Calc Pharmacy 38.4929; Globulin 3.3 g/dL (1.3-4.6); Glomerular Filtration Rate 44.4 mL/min (90-130); Glucose 70 mg/dL (65-115); Osmolality Calculated 287 mOsm/kg (285-295); Potassium 4.1 mmol/L (3.5-5.1); Sodium 138 mmol/L (136-145); Total Bilirubin 0.2 mg/dL (0.15-1.2); Total Protein 7.1 g/dL (6.6-8.7); Troponin(5th) Baseline 13 ng/L (0-10)
[2025-02-04] MEDS: nitroglycerin 0.4 mg sublingual Tablet SUBLINGUAL (14:47)
[2025-02-04 14:52] LABS: NT Pro B Type Natriuretic Pept 844 pg/mL (0-125)
--- NOTE | 2025-02-04 15:21 | PC.NURSE ---
nitro paste removed, admin x1 SL Nitro without relief. morphine ordered per Dr. Castillo
[2025-02-04] MEDS: morphine 4 mg/mL SDV 1 mL 2 MG IVP (15:24)
--- NOTE | 2025-02-04 15:30 | PC.NURSE ---
pt verbalized various complaints/concerns with visit, this nurse educated patient on visit process and cardiac workup policies; this nurse addressed all concerns verbalized and notified Dr. Castillo, Dr. Castillo at bedside to address pt concerns with treatment.
--- NOTE | 2025-02-04 15:41 | ECG_ITS ---
REPUCOM Test Date: 2025-02-04 Pat Name: Nereida Palafox Department: Room: Gender: Female Subcontract Manager: : [id number] Requested By: Marcus Castillo Order Number: [id number] Reading MD: ANALI ANDRADE Measurements Intervals [place] Rate: 78 P: 69 NE: 215 QRS: 61 QRSD: 82 T: 47 QT: 402 QTc: 459 Interpretive Statements SINUS RHYTHM WITH FIRST DEGREE AV BLOCK No previous ECG available for comparison Electronically Signed On 02-05-2025 22:06:04 CDT by ANALI ANDRADE [email or web address]
[2025-02-04] MEDS: promethazine 25 mg Tablet 12.5 MG PO (16:42)
[2025-02-04 17:24] LABS: Troponin 5 2HR 13.45 ng/L (0-10); Troponin 5 2HR Delta 0.45 ABS# (0-10)
== END 2025-02-04 18:55 | disposition home or self-care (01) ==
PROVIDERS: Emergency Provider Emergency Medicine; PCP Family Medicine
DX: R07.9 Chest pain, unspecified (principal); I25.10 Atherosclerotic heart disease of native coronary artery without angina pectoris; H69.80 Other specified disorders of Eustachian tube, unspecified ear; Z79.02 Long term (current) use of antithrombotics/antiplatelets; J44.9 Chronic obstructive pulmonary disease, unspecified; N18.9 Chronic kidney disease, unspecified
CPT/HCPCS: 36415; 71045; 80053; 83880; 84484; 85025; 93005; 96374; 99285; J2270; J9999; Q0169

== ENCOUNTER → 2025-02-15 13:00 | Outpatient (BNVA) | payer MEDICARE, MEDICAID, SELFPAY | PROVIDERS: PCP Family Medicine; Visit Provider Internal Medicine | DX: R07.89 Other chest pain (principal); R06.00 Dyspnea, unspecified; I25.10 Atherosclerotic heart disease of native coronary artery without angina pectoris; R06.02 Shortness of breath | CPT/HCPCS: 93005; 99214 ==

== ENCOUNTER 2025-02-20 07:08 | Outpatient (CLI) | payer MEDICARE, MEDICAID, SELFPAY ==
[2025-02-20] VITALS (8 sets, daily range): BP systolic 100–115; BP diastolic 54–76; PULSE 74–86; RESP 12–21; TEMP 36.4–36.8; O2SAT 97–100; BMI 28.7
[2025-02-20] MEDS: aspirin 325 mg Tablet PO (08:00)
[2025-02-20 08:07] LABS: Blood Urea Nitrogen 27 mg/dL (8-23); Carbon Dioxide 24 mmol/L (22-29); Chloride 103 mmol/L (98-107); Glomerular Filtration Rate 49.1 mL/min (90-130); Glucose 83 mg/dL (65-115); Osmolality Calculated 292 mOsm/kg (285-295); Sodium 139 mmol/L (136-145)
[2025-02-20 08:10] LABS: Creatinine Clr Calc Pharmacy 42.2648
--- NOTE | 2025-02-20 08:30 | XACV_ITS ---
Exam Room: 2 Ht: 155 cm Wt: 69 kg BSA: 1.75 m2 Gender: Female : 1955 Any Known Allergies: Other Exam Priority: Routine Procedure(s): Procedure Description: Diagnostic procedure Procedure Description: Coronary Angiography Procedure Description: Left heart catheterization Diagnostic Cath Status: Elective Diagnostic Findings * INDICATION: Worsening angina/ abnormal stress test. * No significant disease noted in the Left Main, Left Anterior Descending, Right, or Circumflex coronary arteries. Patent prior LAD stent. * Coronary angiography shows right dominance. Conclusions 1. No significant disease noted in the Left Main, Left Anterior Descending, Right, or Circumflex coronary arteries. Patent prior LAD stent. 2. Normal left ventricular systolic function. Ejection fraction of 65%. Recommendations * Aggressive risk factor modification. * Outpatient cardiology follow up in 2 weeks. Interventional RX Recommendation: medical therapy and/or counseling Diagnostic RX Recommendation: medical therapy and/or counseling Ventriculography Ejection Fraction: 65.0 % Pressures Phase:Rest AO : 122 / 53 ( 84 ) @ 10:11:00 AM 123 / 53 ( 84 ) @ 10:11:00 AM LV : 117 / -17 / 11 @ 10:10:00 AM 120 / -17 / 12 @ 10:11:00 AM 119 / -17 / 12 @ 10:11:00 AM Valves Phase:DefaultPhase AV : 0.0 @ 9:23:41 AM AV Mean Gradient: 0.0 @ 9:23:41 AM Clinical Evaluation EBL: 5mL-10mL Procedural Details Procedure Consent Obtained. Pre-Procedure Time Out. Identified patient by full name and date of as verbalized by the patient/guarantor. Does the consent match the physician's order: Yes. Accurate & Complete Informed Consent: Yes. Inpatient/Outpatient History & Physical on Chart: Yes. If H&P is completed, is and addenduem needed: No. Visualize and Verify Site with Patient/Guarantor: N/A. Relevant Radiology Images available: Yes. The risks, benefits, and alternatives of sedation and/or procedure were discussed by physician. The patient agrees to continue. Procedure started. [facility] Clinical Fraility Score: 5: Mildly Frail. Telegraph Inspector Indications: Worsening Angina, abnormal stress test. Chest Pain Symptom Assessment: Typical Angina Symptoms. Cardiovascular Instability: No. Correct patient, site and procedure confirmed by cath team. PERRLA. Strong, equal hand axle and frame mechanic bilaterally. Lungs clear x 5 lobes. IV Site on Arrival: 20 gauge in the right anticubital. IV Fluids: 0.9% NaCl at KVO. 0 mL infused prior to labor utilization superintendent. Pre Procedural Pulses: bilateral posterior tibial was Doppled. Pre Procedural Pulses: bilateral dorsalis pedis was Doppled. Pre Procedural Pulses: bilateral radial was 1+. Oxygen started at 2liters/min via nasal canula. right groin was prepped with chloroprep then draped in the usual sterile fashion. left groin was prepped with chloroprep then draped in the usual sterile fashion. Physician notified. Baseline sample Acquired. HR: 79 BPM. Patient's family unavailable. Equipment: 6F - Femoral. Cardiac Cath Pack. ACIST Manifold Kit Model BT 2000. Heparinized Saline (2 units/mL), 1000 mL bag. Kit, Micropuncture. Physician arrived. Physician scrubbed in. Immediate Pre-Procedure Time Out. Correct Patient: Yes; Correct Procedure: Yes; Correct Site: Yes; Correct Patient Position: Yes; Correct Supplies: Yes; Dried Flammable Prep: Yes; Blood Products Available: N/A;. Lidocaine 1% infiltrated to the right groin. Arterial access obtained with micropuncture set using ultrasound guidance. A 5 turkmen JL4 catheter in over the standard J wire. Multiple views taken of left coronary artery. Catheter removed over the standard J wire. A 5 turkmen JR4 catheter in over the standard J wire. Multiple views taken of right coronary artery. Catheter removed over the standard J wire. A 5 turkmen Angled Pig catheter in over the standard J wire. EDP Sample taken: LV 117/-17,11; HR: 81 BPM; SpO2: 97%. LV gram performed in [place]OWLER @ 10 mL/second for a total of 30 mL. EDP Sample taken: LV 120/-18,12; HR: 82 BPM; SpO2: 97%. Pullback taken: LV 119/-18,12; AO 122/53(84); Mean: 0mmHg, Peak to Peak: 0mmHg, SEP: 25sec/min; HR: 83 BPM; SpO2: 98%. Catheter removed over the standard J wire. A Right femoral angiogram was performed to determine safe placement of closure device. A Angio-Seal VIP ([employer]) was successful obtaining hemostatsis at the Right Femoral artery insertion site. Lot # [id number]. Exp. . Physician scrubbed out. Post Procedure: Pulses reassessed and unchanged. PERRLA. Strong, equal hand axle and frame mechanic bilaterally. No VTE prophylaxis required. Medication's Wasted: Heparin = 1000 units. Medication's Wasted: Other = Fentanyl 50 mcg. Total IV fluids: 30 mL. Post-op diagnosis: non-obstructive CAD, patent prior LAD stent. Complications: none. Estimated blood loss: 5mL-10mL. Responsiveness - Normal response to verbal stimuli; alert and oriented, PERRLA. Airway - Unaffected, no intervention required; spontaneous ventilation. Circulation: W/N/L, pulses unchanged. Nausea/Vomiting: No. Procedure completed. Patient transferred by bed to 1st floor. Vital chart was stopped. Access Site Site: Right Femoral artery Sheath Size: 6 Fr Hemostasis Method: Angio-Seal VIP ([employer]) Hemostasis Success: Successful Procedure Medications Start: 8:44 AM Stop: 8:44 AM Medication: Plavix Amount: 75 mg Route: P.O. Start: 8:44 AM Stop: 8:44 AM Medication: Benadryl Amount: 25 mg Route: I.V. Start: 8:45 AM Stop: 8:45 AM Medication: Versed Amount: 1 mg Route: I.V. Start: 8:45 AM Stop: 8:45 AM Medication: Fentanyl Amount: 25 mcg Route: I.V. Start: 8:55 AM Stop: 8:55 AM Medication: Fentanyl Amount: 25 mcg Route: I.V. Start: 9:01 AM Stop: 9:01 AM Medication: Versed Amount: 1 mg Route: I.V. I, the attending physician, have reviewed and verified all procedure medications. Yes, all medications given per verbal order History/Risk Factors Hypertension: No Dyslipidemia: No Peripheral Arterial Disease (PAD): No Myocardial Infarction (LA): Yes Obesity: No Renal Disease: No Tobacco Use: Never Prior Interventions PCI: No CABG: No Valve Surgery: No Report Signatures Finalized by Tyron Cortes MD on 02/20/2025 10:08 AM
--- NOTE | 2025-02-20 08:36 | P.HPUD_ITS ---
Surgery/Procedure H&P Update DATE OF PROCEDURE: February 20, 2025 DATE H&P PERFORMED: 02/15/25 H&P UPDATE INFORMATION: I have reviewed H&P completed within last 30 days, I have examined patient prior to procedure and No changes to prior documentation PREOP DIAGNOSIS: Worsening angina/abnormal stress test PRIMARY INDICATION FOR PROCEDURE: Worsening angina/ abnormal stress test PLANNED PROCEDURE: Operation Date: 02/20/25 08:30 Proposed Procedures p Cardiac Catheterization - [facility] w/wo LV & COROS(Left) - Tyron Cortes M.D Possible percutaneous coronary intervention PATIENT REASSESSED PRIOR TO SEDATION, WITH NO CHANGE NOTED: Yes PHYSICAL EXAM: alert, oriented x 3, clear to auscultation bilaterally and regular rate & rhythm AIRWAY EVAL/ANESTHESIA PLAN: normal airway, ASA III, Local Anesthesia, Risks, benefits & alternatives of sedation and/or procedure discussed and Patient agrees to continue as planned ADDITIONAL INFORMATION: Moderate sedation
--- NOTE | 2025-02-20 09:40 | PC.NURSE ---
Patient received from chemical laboratory assistant via bed. Patient is s/p LHC without PCI. She was right femoral access with angioseal placed. Instructed patient of site care and restrictions. Patient to received NS at 50ml/hr until discharge. Patient to discharge after 6hour recovery. Patient has CKD and will require fluids for now. Patient denies pain or needs. No distress observed. Dressing to right groin remains c,d,i without s/s of bleeding or hematoma formation observed. Will continue to monitor.
--- NOTE | 2025-02-20 10:26 | PC.NURSE ---
Patient has discharge orders. Unable to discharge until recovery time complete at 6 hours
--- NOTE | 2025-02-20 15:27 | PC.NURSE ---
Patient discharged to home. Instructed patient follow up appointments as well as site care and restriction. No medication changes. Dressing to right groin remains c,d,i without s/s of bleeding or hematoma formation observed. Patient received 300ml NS IV prior to discharge. Patient denies pain or needs. No distress observed. Patient taken by wheelchair to private vehicle. Son to provide transportation. All belongings sent with patient.
== END 2025-02-20 15:31 | disposition home or self-care (01) ==
LOC: CCL 07:11 → CSU 09:40
PROVIDERS: PCP Family Medicine; Visit Provider Internal Medicine
DX: R94.39 Abnormal result of other cardiovascular function study (principal); Z95.5 Presence of coronary angioplasty implant and graft; I25.10 Atherosclerotic heart disease of native coronary artery without angina pectoris; Z86.79 Personal history of other diseases of the circulatory system; I25.2 Old myocardial infarction; K21.9 Gastro-esophageal reflux disease without esophagitis; N18.30 Chronic kidney disease, stage 3 unspecified; I27.20 Pulmonary hypertension, unspecified; J44.9 Chronic obstructive pulmonary disease, unspecified; E03.9 Hypothyroidism, unspecified
CPT/HCPCS: 36415; 80048; 93458; 96374; 99152; 99153; C1760; C1769; C1887; C1894; G0269; J1200; J1644; J2250; J3010; J7030; J9999; Q9967

== ENCOUNTER 2025-03-03 08:24 | Outpatient (CLI) | payer OTHER, MEDICAID, SELFPAY ==
--- NOTE | 2025-03-03 08:45 | USCV_ITS ---
Nereida Palafox Age: 69 Gender: F : 1955 Exam Date: 03/03/2025 08:41 Ordering Phys: Tyron Cortes M.D ([email or web address]) Technologist: JOSE MIGUEL [place] [facility] [place]: SoB BP: 116 / 68 HR: 68 Rhythm: Sinus Technical Quality: Adequate MEASUREMENTS (Male / Female) Normal Values 2D ECHO LV Diastolic Diameter PLAX 4.3 cm 4.2 - 5.9 / 3.9 - 5.3 cm IVS Diastolic Thickness 0.9 cm 0.6 - 1.0 / 0.6 - 0.9 cm IVS Systolic Thickness 1.1 cm LVPW Diastolic Thickness 0.9 cm 0.6 - 1.0 / 0.6 - 0.9 cm LVPW Systolic Thickness 0.9 cm LVOT Diameter 2.0 cm LV Ejection Fraction 2D Teich 57.4 % LV Ejection Fraction MOD 4C 54.9 % LV Ejection Fraction MOD 2C 58.1 % LV Ejection Fraction 2C AL 60.0 % LA Diameter 3.8 cm RA Systolic Volume 4C AL 28.9 ml RA Systolic Volume 4C MOD 28.5 ml LA Sys Volume AL 47.8 cm cubed LA Sys Volume Index AL 27.4 cm cubed/m squared Aorta at Sinotubular Diameter 2.8 cm M-MODE LA Ao Ratio MM 2.1 AV Cusp Separation MM 1.4 cm DOPPLER AV Peak Velocity 101.0 cm/s LVOT Peak Velocity 85.0 cm/s AV Area Cont Eq vti 2.8 cm squared AV Area Cont Eq pk 2.6 cm squared MV Peak Velocity 83.0 cm/s MV Area PHT 3.2 cm squared Mitral E to A Ratio 0.9 TV Peak Velocity 173.0 cm/s TR Peak Velocity 271.0 cm/s TR Peak Gradient 29.4 mmHg TV Peak E Velocity 85.0 cm/s PV Peak Velocity 69.0 cm/s FINDINGS Left Ventricle LV systolic function is normal in size. LV systolic function is normal with EF of 55-60%. No regional wall abnormalities. Right Ventricle Normal in size and function Right Atrium Normal in size Left Atrium Normal in size Mitral Valve Structurally normal mitral valve. Mild to moderate mitral regurgitation Aortic Valve Structurally normal aortic valve. No significant stenosis or regurgitation. Tricuspid Valve Mild tricuspid regurgitation. Pulmonary artery systolic pressure is normal. Pulmonic Valve Not well visualized Pericardium Normal Aorta Normal in size IVC Not well visualized. CONCLUSIONS LV systolic function is normal with EF of 55-60% Mild to moderate mitral regurgitation Mild tricuspid regurgitation Compared to prior echocardiogram from 2023, no significant changes are seen. Tyron Cortes MD (Electronically Signed) Final Date: 09 Mar 2025 10:20 S
== END 2025-03-03 08:25 | disposition home or self-care (01) ==
LOC: RAD 08:26
PROVIDERS: PCP Family Medicine; Visit Provider Internal Medicine
DX: R06.02 Shortness of breath (principal); I34.0 Nonrheumatic mitral (valve) insufficiency; I07.1 Rheumatic tricuspid insufficiency
CPT/HCPCS: 93306